=== PATIENT | female | born 1955 | race Caucasian/White ===

== ENCOUNTER → 2017-11-14 13:24 | Outpatient (CLI) | payer OTHER, SELFPAY ==
--- NOTE | 2017-11-14 13:33 | US_ITS ---
STUDY: ULTRASOUND OF THE FEMALE PELVIS - COMPLETE REASON FOR EXAM: Female, 62 years old. Pelvic pain for 2 days. TECHNIQUE: Transabdominal. TECHNICAL QUALITY: Adequate. COMPARISON: None. FINDINGS: The uterus and ovaries are absent compatible with hysterectomy and bilateral oophorectomy. No free fluid in the pelvis. Bladder volume measures 2.61 mL. Bladder is grossly normal.. US/Pelvic (Non ) IMPRESSION: Normal appearance of the pelvis status post hysterectomy with bilateral oophorectomy. Electronically Signed: Fito Perez MD at 7:54 EST , Service support ,
== END ==
PROVIDERS: Family Provider Family Medicine; PCP Family Medicine; Visit Provider Family Medicine
DX: R10.9 Unspecified abdominal pain (principal)
CPT/HCPCS: 76856

== ENCOUNTER → 2017-12-03 15:18 | Outpatient (CLI) | payer OTHER, SELFPAY ==
--- NOTE | 2017-12-03 15:25 | HPBI_ITS ---
MAMMOGRAPHY - BILATERAL SCREENING REASON FOR EXAM: Female, 62 years old. Routine annual screening examination. PERTINENT HISTORY: Non-contributory. TECHNIQUE: Digital bilateral breast sotero (3D mammographic acquisition) in the CC and MLO projections. 2-D mediolateral oblique (MLO) and craniocaudad (CC) views of both breasts were obtained. CAD: Full Field Digital Mammography with Computer Added Detection was performed. COMPARISON: Comparison is made with prior study dated November 06, 2016 and October 13, 2015. FINDINGS: Breast Composition: There are scattered areas of fibroglandular density. There are no dominant masses or suspicious calcifications. No other significant abnormalities are identified. There has been no significant change since the prior study. HPBI/SCREENING MAMM (CAD), BILAT IMPRESSION: Stable bilateral screening mammogram. Yearly follow-up mammogram recommended. (A) ASSESSMENT CATEGORY: BIRADS Category 1: Negative. A letter regarding these results will be sent to the patient by the facility within 30 days. Approximately 10% of breast cancers are not detected by mammography. A normal mammogram should not delay biopsy of a clinically suspicious abnormality. [id number] Electronically Signed: Bertin Beckford MD at 8:14 EST Tel [phone], Service support ,
== END ==
LOC: BI 15:19
PROVIDERS: Family Provider Family Medicine; PCP Family Medicine; Visit Provider Obstetrics & Gynecology
DX: Z12.31 Encounter for screening mammogram for malignant neoplasm of breast (principal)
CPT/HCPCS: 77063; 77067

== ENCOUNTER → 2018-06-19 09:40 | Outpatient (CLI) | payer MEDICARE, SELFPAY ==
--- NOTE | 2018-06-19 09:44 | CT_ITS ---
STUDY: CT ABDOMEN AND PELVIS WITHOUT CONTRAST REASON FOR EXAM: Female, 63 years old. Assess for an umbilical hernia. RADIATION DOSAGE (If Supplied By Facility): CTDIvol = ( 6.48 ) mGy, DLP = ( 318.71 ) mGycm TECHNIQUE: Transaxial images were obtained from the dome of the diaphragm to the symphysis pubis without oral contrast, and without intravenous contrast. Sagittal and coronal images were reconstructed. Individualized dose optimization techniques were used for this CT. COMPARISON: April 13, 2017 FINDINGS: The visualized lung bases are unremarkable. The visualized portions of the heart are within normal limits. Normal liver. There are surgical clips in the gallbladder fossa consistent with a prior cholecystectomy. Normal spleen. Normal pancreas. There is stable prominence of the left adrenal gland. Normal right kidney. Normal left kidney. Normal visualized stomach. Normal small intestine. There are diverticula throughout the colon present most pronounced within the sigmoid colon. The appendix is visualized and appears normal. Normal abdominal aorta. Normal inferior vena cava. Normal retroperitoneum. Normal urinary bladder. There is a umbilical hernia measuring up to 3 cm in the transverse dimension containing a segment of small bowel. There are diffuse degenerative changes of the visualized lumbar spine. CT/Abdomen/Pelvis without Cont IMPRESSION: Umbilical hernia. Colonic diverticulosis. Degenerative changes. Electronically Signed: Ksenia Nixon MD at 16:56 EDT Tel , Service support ,
== END ==
LOC: CT 09:43
PROVIDERS: Family Provider Family Medicine; PCP Family Medicine; Visit Provider Surgery
DX: K46.9 Unspecified abdominal hernia without obstruction or gangrene (principal)
CPT/HCPCS: 74176

== ENCOUNTER 2018-09-17 11:19 | Day surgery (SDC) | payer MEDICARE, SELFPAY ==
[2018-08-20 12:44] VITALS: BMI 27.1
[2018-09-17] VITALS (10 sets, daily range): BP systolic 115–147; BP diastolic 49–96; PULSE 62–79; RESP 16–18; TEMP 36.3–37.2; O2SAT 92–100; BMI 26.9
--- NOTE | 2018-09-17 11:40 | EKG12_ITS ---
Test Reason : PRE OP Blood Pressure : / mmHG Vent. Rate : 066 BPM Atrial Rate : 066 BPM P-R Int : 126 ms QRS Dur : 080 ms QT Int : 402 ms P-R-T Axes : 003 013 002 degrees QTc Int : 421 ms Sinus rhythm with Premature atrial complexes Otherwise normal ECG When compared with ECG of 13-APR-2017 13:10, Premature atrial complexes are now Present Confirmed by MONTY NAJERA, JORGE ([id number]), editorial writer LAKIA OLIVARES ([id number]) on 09/18/2018 11:27:43 AM Referred By: Sarina Marmolejo Confirmed By:JORGE MILLAN MD
[2018-09-17 12:29] LABS: BUN 20 mg/dL (7-18); Creatinine, Serum 1.05 mg/dL (0.55-1.02); Estimated Creatinine Clearance 42.25 ml/min; Glucose 88 mg/dL (74-106)
[2018-09-17 12:30] LABS: Anion Gap 7 (5-15); Chloride 108 mmol/L (98-107); EST Glomerular Filtration Rate 56 mL/min (>60); Est Glom Filt Rate - Afr Amer 68 mL/min (>60); Potassium 4.1 mmol/L (3.5-5.1); Sodium Level 144 mmol/L (136-145); Thyroid Stim Hormone (TSH) 3.11 uIU/mL (0.358-3.74)
--- NOTE | 2018-09-17 13:00 | HERN_PTH ---
PATIENT: MATT ZAZUETA [place] [facility] [place][id number] AGE/SX: 63/F ROOM: RE09/17/[address]: Dr. Sarina Marmolejo MD : [id number] BED: DIS: 09/17/2018 SPEC #: [id number] RECD: 09/17/18 15:51 STATUS: KELLEN REJuan #: [id number] SHANICE: 09/17/18 13:[address]: Sarina Marmolejo DEPT: SURGICAL PATHOLOGY RECD BY: Armando Flood ENTERED: 09/18/18 10:28 SP TYPE: Hernia OTHR DR: Dr. Gary Howard, DO Tissues: HERNIA Procedures: Surgery Specimen Level II HEADER OPERATION: Open incisional ventral hernia repair with mesh PRE-OP DIAGNOSIS: Ventral incisional hernia without obstruction TISSUE SUBMITTED: Hernia sac MICROSCOPIC DIAGNOSIS Hernia sac: Pieces of dense fibroconnective tissue and fibroadipose tissue, consistent with hernia sac with reactive changes. SJ:cedric 09/21/18 MICROSCOPIC DESCRIPTION Slides are reviewed. GROSS DESCRIPTION Received in fixative is one container labeled with the patient's name and designated hernia sac. The specimen consists of multiple pieces of anthony soft to indurated tissue mixed with adipose tissue that in aggregate measure 5 x 4.5 x 2 cm. No mass lesion is identified. Charger Tester sections are submitted in one cassette. / ERIC:cedric 09/18/18 TC:5 CPT: 72446
--- NOTE | 2018-09-17 15:02 | PCM.OPRPT ---
Report of Operation Date of Procedure: 09/17/18 Pre-Operative Diagnosis: Incisional ventral hernia Post-Operative Diagnosis: Incarcerated incisional ventral hernia Surgery/Procedure Performed:: Incarcerated incisional ventral hernia repair with mesh rail grinder: Shane Courtney Type of Anesthesia:: General/Supplemental Anesthesiologist: Td Stringer Special Medications: Clindamycin 600 mg IV x1 Specimen's removed: Hernia sac Estimated Blood Loss (mL): <10 cc Fluids Replaced: 900 cc Description of Procedure: Patient was brought into the room placed supine on the operating table. Correct patient, procedure, site, positioning, special, was verified prior to procedure. General anesthesia was induced. The abdomen was prepped draped in usual sterile fashion. A curvilinear incision was made below the umbilicus with a 15 blade scalpel. This was deepened with electrocautery. A hemostat was used to go around the stalk of the umbilicus and Metzenbaum scissors was used to carefully divide the hernia sac from the skin of the umbilicus. The hernia sac had tight adhesions to the abdominal wall which were carefully taken down with Metzenbaum scissors. The fascia around the hernia defect was cleared and the hernia defect measured 2 cm x 2-1/[address] hernia patch medium 6.4 cm tulalip was placed assuring it was laying flat against the fascia. 1-0 Nurolon was used to secure the fascia circumferentially 1-0 Nurolon suture was used to secure the mesh to the fascia circumferentially. The wound was irrigated with saline. Hemostasis was assured. The skin of the umbilicus was secured to the fascia using a 3-0 Vicryl suture interrupted. The incision was closed with 3-0 Vicryl subdermal interrupted sutures and the skin was closed with interrupted 4-0 Monocryl sutures. Steri-Strips and Tegaderm and OpSite were placed over the incision once sterile cotton balls were placed in the umbilicus. Patient was extubated. Patient tolerated procedure well and was taken to the postanesthesia care unit in stable condition. Grafts/Implants Used: Ventralex ST hernia patch, medium tulalip lot [id number] - Complications none
[2018-09-17] MEDS: Bupivacaine Mpf 0.5% 30 ML VIAL (15:03)
--- NOTE | 2018-09-17 15:07 | OP.PCM_ITS ---
Report of Operation Date of Procedure: 09/17/18 Pre-Operative Diagnosis: Incisional ventral hernia Post-Operative Diagnosis: Incarcerated incisional ventral hernia Surgery/Procedure Performed:: Incarcerated incisional ventral hernia repair with mesh quality assurance monitor: Shane Courtney Type of Anesthesia:: General/Supplemental Anesthesiologist: Td Stringer Special Medications: Clindamycin 600 mg IV x1 Specimen's removed: Hernia sac Estimated Blood Loss (mL): <10 cc Fluids Replaced: 900 cc Description of Procedure: Patient was brought into the room placed supine on the operating table. Correct patient, procedure, site, positioning, special, was verified prior to procedure. General anesthesia was induced. The abdomen was prepped draped in usual sterile fashion. A curvilinear incision was made below the umbilicus with a 15 blade scalpel. This was deepened with electrocautery. A hemostat was used to go around the stalk of the umbilicus and Metzenbaum scissors was used to carefully divide the hernia sac from the skin of the umbilicus. The hernia sac had tight adhesions to the abdominal wall which were carefully taken down with Metzenbaum scissors. The fascia around the hernia defect was cleared and the hernia defect measured 2 cm x 2-1/[address] hernia patch medium 6.4 cm kaltag was placed assuring it was laying flat against the fascia. 1-0 Nurolon was used to secure the fascia circumferentially 1-0 Nurolon suture was used to secure the mesh to the fascia circumferentially. The wound was irrigated with saline. Hemostasis was assured. The skin of the umbilicus was secured to the fascia using a 3-0 Vicryl suture interrupted. The incision was closed with 3-0 Vicryl subdermal interrupted sutures and the skin was closed with interrupted 4-0 Monocryl sutures. Steri-Strips and Tegaderm and OpSite were placed over the incision once sterile cotton balls were placed in the umbilicus. Patient was extubated. Patient tolerated procedure well and was taken to the postanesthesia care unit in stable condition. Grafts/Implants Used: Ventralex ST hernia patch, medium kaltag lot [id number] - Complications none
--- NOTE | 2018-09-17 15:09 | PCM.DC.GS ---
Discharge Diet: Light diet - advance as tolerated Discharge Activity: May not drive while taking narcotic pain medications. May shower in (days): 5 - Keep umbilical dressing clean dry and intact for 5 days Lifting Restrictions: No lifting greater than 20 pounds for 4 weeks and no strenuous exercise for Call your doctor if your incision/area has: Continuous Slow Oozing, Sudden Increased Bleeding, Increased Pain/ Swelling, Increased Redness, Foul Smelling Discharge, Swelling at the incision site Call your doctor if you observe: Fever of 101 or Higher Additional Instructions: okay to take ibuprofen 400-600 mg PO q6hr PRN along with the Vicodin. Avoid Tylenol since there is already Tylenol in the Vicodin. Take all pain meds with food. Vicodin can cause constipation recommend taking daily stool softener (i.e. Colace/docusate) while taking the pain meds. Recommend starting some MiraLAX tomorrow if no bowel movement. If still no bowel movement the following day recommend taking magnesium citrate half the bottle and waiting 4-6 hours if still no results take the other half the bottle. keep dressing on the umbilicus for 5 days. Keep clean and dry by covering with Ziploc bag with the edges tape for showers for 5 days or do lower showers with sponge baths. It is okay to remove dressing after 5 days but would continue to put either a cotton ball or rolled up gauze in the umbilicus with tape over the top to keep the skin of the mellitus against the fascia for 2 more days--change daily. Allergies/Adverse Reactions: Allergies sulfamethoxazole [From Bactrim] Allergy (Mild, Verified 09/15/18 11:20) rash trimethoprim [From Bactrim] Allergy (Mild, Verified 09/15/18 11:20) rash amoxicillin Allergy (Verified 09/15/18 11:20) Rash Medications to take at Discharge Estradiol 0.5 mg PO DAILY 04/13/17 Lisinopril/Hydrochlorothiazide [Zestoretic 20-25 mg Tablet] 1 tab PO DAILY 04/13/17 Multivitamin [Multiple Vitamins] 1 ea PO DAILY 04/13/17 Niacin (Inositol Niacinate) [Niacin 500 mg Capsule] 500 mg PO QHS 04/13/17 Simvastatin [Zocor] 10 mg PO DAILY 04/13/17 fenofibrate nanocrystallized 145 mg tablet 145 mg PO DAILY 06/15/18 levothyroxine 25 mcg capsule 25 mcg PO DAILY 06/15/18 Cholecalciferol (VIT D3) [Vitamin D] 400 unit PO DAILY 09/15/18 Hydrocodone Bitart/Apap 5-325 [Edison 5MG-325MG] 1 - 2 tablet PO Q4H PRN PRN 4 Days #25 tablet 09/17/18 Orders to be completed after discharge: 12 Lead EKG [[facility]] Time Frame: 09/17/18, Location: None Selected Primary Care Physician: Gary Howard [Primary Care Provider] - Test Results: Test results from this visit will be discussed in further detail at your follow-up appointment, if applicable. Please Follow Up With: Sarina Marmolejo MD - Any issues after 5 PM or on the weekends call [phone] When: Call for follow-up appointment in 1-2 weeks in the office Proposed Discharge Date: 09/17/18
--- NOTE | 2018-09-17 15:14 | DCINST_ITS ---
Discharge Diet: Light diet - advance as tolerated Discharge Activity: May not drive while taking narcotic pain medications. May shower in (days): 5 - Keep umbilical dressing clean dry and intact for 5 days Lifting Restrictions: No lifting greater than 20 pounds for 4 weeks and no strenuous exercise for Call your doctor if your incision/area has: Continuous Slow Oozing, Sudden Increased Bleeding, Increased Pain/ Swelling, Increased Redness, Foul Smelling Discharge, Swelling at the incision site Call your doctor if you observe: Fever of 101 or Higher Additional Instructions: okay to take ibuprofen 400-600 mg PO q6hr PRN along with the Vicodin. Avoid Tylenol since there is already Tylenol in the Vicodin. Take all pain meds with food. Vicodin can cause constipation recommend taking daily stool softener (i.e. Colace/docusate) while taking the pain meds. Recommend starting some MiraLAX tomorrow if no bowel movement. If still no bowel movement the following day recommend taking magnesium citrate half the bottle and waiting 4-6 hours if still no results take the other half the bottle. keep dressing on the umbilicus for 5 days. Keep clean and dry by covering with Ziploc bag with the edges tape for showers for 5 days or do lower showers with sponge baths. It is okay to remove dressing after 5 days but would continue to put either a cotton ball or rolled up gauze in the umbilicus with ta pe over the top to keep the skin of the mellitus against the fascia for 2 more days--change daily. Allergies/Adverse Reactions: Allergies sulfamethoxazole [From Bactrim] Allergy (Mild, Verified 09/15/18 11:20) rash trimethoprim [From Bactrim] Allergy (Mild, Verified 09/15/18 11:20) rash amoxicillin Allergy (Verified 09/15/18 11:20) Rash Medications to take at Discharge Estradiol 0.5 mg PO DAILY 04/13/17 Lisinopril/Hydrochlorothiazide [Zestoretic 20-25 mg Tablet] 1 tab PO DAILY 04/13/17 Multivitamin [Multiple Vitamins] 1 ea PO DAILY 04/13/17 Niacin (Inositol Niacinate) [Niacin 500 mg Capsule] 500 mg PO QHS 04/13/17 Simvastatin [Zocor] 10 mg PO DAILY 04/13/17 fenofibrate nanocrystallized 145 mg tablet 145 mg PO DAILY 06/15/18 levothyroxine 25 mcg capsule 25 mcg PO DAILY 06/15/18 Cholecalciferol (VIT D3) [Vitamin D] 400 unit PO DAILY 09/15/18 Hydrocodone Bitart/Apap 5-325 [[place] 5MG-325MG] 1 - 2 tablet PO Q4H PRN PRN 4 Days #25 tablet 09/17/18 Orders to be completed after discharge: 12 Lead EKG [[facility]] Time Frame: 09/17/18, Location: None Selected Primary Care Physician: Gary Howard [Primary Care Provider] - Test Results: Test results from this visit will be discussed in further detail at your follow- up appointment, if applicable. Please Follow Up With: Sarina Marmolejo MD - Any issues after 5 PM or on the weekends call [phone] When: Call for follow-up appointment in 1-2 weeks in the office Proposed Discharge Date: 09/17/18
--- OUTSIDE RECORDS SUMMARY | 2018-11-03 06:46 | XMS RPT_ITS ---
:1955 Author Organization OH[employer] Support Name Relationship Address Phone MOUNA ZAZUETA Unavailable . + [place] [address] [employer] Unavailable [address] + [facility] [place] [address] ZAZUETA, MOUNA Unavailable Unavailable + [place] [address] [employer] Unavailable [address] + [place] [address] ZAZUETA, MOUNA Unavailable Unavailable + [place] [address] [employer] Unavailable [address] + [place] [address] ZAZUETA, MOUNA Unavailable Unavailable + [place] [address] [employer] Unavailable [address] + [place] [address] ZAZUETA, MOUNA Unavailable Unavailable + ZAZUETA, MOUNA Unavailable [address] + [place] [address] UE Unavailable Unavailable Unavailable ZAZUETA, MOUNA Unavailable [address] + [place] [address] UE Unavailable Unavailable Unavailable ZAZUETA, MOUNA Unavailable [address] + [place] [address] UE Unavailable Unavailable Unavailable ZAZUETA, MOUNA Unavailable [address] + [place] [address] UE Unavailable Unavailable Unavailable ZAZUETA, MOUNA Unavailable [address] + [place] [address] UE Unavailable Unavailable Unavailable Care Team Providers Name Role Phone ALLYSSA LOPEZ, DR. ALVARENGA Attending Unavailable Robotham, Sarina Attending Unavailable Robotham, Sarina Referring Unavailable Fracasso, Gary Primary Care Unavailable Robotham, Sarina Consulting Unavailable Jacqueline, Republic Attending Unavailable Robotham, Sarina Referring Unavailable Robotham, Sarina Attending Unavailable Fracasso, Gary Referring Unavailable RUZICS, RUPALI Attending Unavailable Fracasso, Gary Primary Care Unavailable Gunning, Alfonso Attending Unavailable Gunning, Alfonso Referring Unavailable Fracasso, Gary Primary Care Unavailable Robotham, Sarina Attending Unavailable Fracasso, Gary Referring Unavailable Fracasso, Gary Primary Care Unavailable Robotham, Sarina Attending Unavailable Robotham, Sarina Referring Unavailable Fracasso, Gary Primary Care Unavailable Robotham, Sarina Attending Unavailable Fracasso, Gary Referring Unavailable Robotham, Sarina Attending Unavailable Robotham, Sarina Referring Unavailable Fracasso, Gary Primary Care Unavailable PROBLEMS PROBLEMS DATE TYPE CONDITION / CODE ATTENDING STATUS SOURCE 09/21/2018 Unknown K42.9 - Umbilical Robotham, Active [place] hernia without Sarina [facility] obstruction or Hospital gangrene / Repository K42.9(ICD-10) 09/30/2018 Unknown I10 - Essential Jacqueline, Republic Active [facility] (primary) Community hypertension / Hospital I10(ICD-10) Repository 09/17/2018 Unknown G89.18 - Other acute Robotham, Active [place] postprocedural pain Sarina [facility] / G89.18(ICD-10) Hospital Repository 06/19/2018 Unknown K46.9 - Unspecified Robotham, Active [place] abdominal hernia Sarina [facility] without obstruction Hospital or gangrene / Repository K46.9(ICD-10) 06/19/2018 Unknown K43.9 - Ventral Robotham, Active [place] hernia without Sarina Community obstruction or Hospital gangrene / Repository K43.9(ICD-10) PROCEDURES PROCEDURES No Procedure Records FoundRESULTS RESULTS SURGERY VISIT REPORT Observed: 10/02/2018 Status: F Source: RAVENEL 12:34 PM [facility] REPOSITORY [facility] [address] [place] [address]. [address] [place] [address] OFFICE VISIT Date of Service: 10/01/18 MR#: [id number] Acct: [id number] Name: MATT ZAZUETA Rep #: [id number] : 1955 Provider: Sarina Marmolejo MD Age/Sex: 63/F Location: [facility] Status: Signed Intake Intake Visit Reasons: Hernia Surgery 09/17 Chief Complaint: post ventral hernia repair [employer] Supervisor Required: No Is patient in pain?: No Allergies sulfamethoxazole [From Bactrim] Allergy (Mild, Verified 10/01/18 10:37) rash trimethoprim [From Bactrim] Allergy (Mild, Verified 10/01/18 10:37) rash amoxicillin Allergy (Verified 10/01/18 10:37) Rash Medications Estradiol 0.5 mg PO DAILY 04/13/17 [History Confirmed 09/15/18] Lisinopril/Hydrochlorothiazide [Zestoretic 20-25 mg Tablet] 1 tab PO DAILY 04/13/17 [History Confirmed 09/15/18] Multivitamin [Multiple Vitamins] 1 ea PO DAILY 04/13/17 [History Confirmed 09/15/18] Niacin (Inositol Niacinate) [Niacin 500 mg Capsule] 500 mg PO QHS 04/13/17 [History Confirmed 09/15/18] Simvastatin [Zocor] 10 mg PO DAILY 04/13/17 [History Confirmed 09/15/18] fenofibrate nanocrystallized 145 mg tablet 145 mg PO DAILY 06/15/18 [History Confirmed 09/15/18] levothyroxine 25 mcg capsule 25 mcg PO DAILY 06/15/18 [History Confirmed 09/15/18] Cholecalciferol (VIT D3) [Vitamin D] 400 unit PO DAILY 09/15/18 [History Confirmed 09/15/18] Is last menstrual period known: No Post menopausal: Yes Patient : No Subjective Details: Patient is status post open incisional ventral hernia repair with mesh on 09/17/18. Patient states she is doing well tolerating a diet and having bowel function. Patient states that her pain was well controlled after the surgery with pain meds and currently she is not taking any pain meds. Objective Details: Abdomen: Soft, nondistended, minimal tenderness near incision, resolving ecchymosis, no peritoneal signs Assessment AND Plan Problems 1. S/P repair of ventral hernia Z98.890; Z87.19 Plan Patient is doing well. Tolerating diet, positive bowel function, incision healing well. Patient will follow-up in 3-4 weeks. She will let us know if she needs any work excuses. Currently she is not to be lifting greater than 20 pounds for 4 weeks we will gradually increase until 8 weeks. Patient no further questions at this time. Sarina Marmolejo M.D. Pager: [phone] [facility] [address] [place] [address] [address] [place] [address] Office: [phone] Plan Detail Follow Up 3-4 weeks Coding Level of Care Code Global Post Op Diagnoses S/P repair of ventral hernia Z98.890; Z87.19 10/02/18 1234 <Electronically signed by Sarina Marmolejo MD> Date Sarina Marmolejo MD Cosigner Signature: Date (if applicable) CC: Gary Howard OPERATIVE REPORT Observed: 09/21/2018 Status: F Source: RAVENEL 8:48 PM [facility] REPOSITORY [facility] Medical Records Department [address] [place] [address] Operative Report 09/17/18 1502 MR#: [id number] Acct: [id number] Name: MATT ZAZUETA Rep #: [id number] : 1955 63 From: Sarina Marmolejo MD PCP: Gary Howard Status: [facility] [place] [facility] [place] of Operation Date of Procedure: 09/17/18 Pre-Operative Diagnosis: Incisional ventral hernia Post-Operative Diagnosis: Incarcerated incisional ventral hernia Surgery/Procedure Performed:: Incarcerated incisional ventral hernia repair with mesh shot man: Shane Courtney Type of Anesthesia:: General/Supplemental Anesthesiologist: Td Stringer Special Medications: Clindamycin 600 mg IV x1 Specimen's removed: Hernia sac Estimated Blood Loss (mL): <10 cc Fluids Replaced: 900 cc Description of Procedure: Patient was brought into the room placed supine on the operating table. Correct patient, procedure, site, positioning, special, was verified prior to procedure. General anesthesia was induced. The abdomen was prepped draped in usual sterile fashion. A curvilinear incision was made below the umbilicus with a 15 blade scalpel. This was deepened with electrocautery. A hemostat was used to go around the stalk of the umbilicus and Metzenbaum scissors was used to carefully divide the hernia sac from the skin of the umbilicus. The hernia sac had tight adhesions to the abdominal wall which were carefully taken down with Metzenbaum scissors. The fascia around the hernia defect was cleared and the hernia defect measured 2 cm x 2-1/[address] hernia patch medium 6.4 cm prairie island was placed assuring it was laying flat against the fascia. 1-0 Nurolon was used to secure the fascia circumferentially 1-0 Nurolon suture was used to secure the mesh to the fascia circumferentially. The wound was irrigated with saline. Hemostasis was assured. The skin of the umbilicus was secured to the fascia using a 3-0 Vicryl suture interrupted. The incision was closed with 3-0 Vicryl subdermal interrupted sutures and the skin was closed with interrupted 4-0 Monocryl sutures. Steri-Strips and Tegaderm and OpSite were placed over the incision once sterile cotton balls were placed in the umbilicus. Patient was extubated. Patient tolerated procedure well and was taken to the postanesthesia care unit in stable condition. Grafts/Implants Used: Ventralex ST hernia patch, medium prairie island lot [id number] - Complications none 09/21/182047 <Electronically signed by Sarian Marmolejo MD> Date Sarina Marmolejo MD CC: Gary Howard; Sarina Marmolejo MD Signed 12 LEAD ELECTROCARDIOGRAM Observed: 09/18/2018 Status: F Source: RAVENEL 11:28 AM [facility] REPOSITORY [facility] Cardiovascular Services [address] [place] [address] 12 Lead EKG 09/17/18 1140 MR#: [id number] Acct: [id number] Name: MATT ZAZUETA Rep #: [id number] : 1955 63 From: Francisco Phillips MD Attending Dr: Sarina Marmolejo MD Status: DEP [facility] [place] Dr: Sarina Marmolejo MD Date: 09/17/18 [place] [facility] Sex: F C Admitted: Test Reason : PRE OP Blood Pressure : / mmHG Vent. Rate : 066 BPM Atrial Rate : 066 BPM P-R Int : 126 ms QRS Dur : 080 ms QT Int : 402 ms P-R-T Axes : 003 013 002 degrees QTc Int : 421 ms Sinus rhythm with Premature atrial complexes Otherwise normal ECG When compared with ECG of 13-APR-2017 13:10, Premature atrial complexes are now Present Confirmed by FRANCISCO PHILLIPS MD ([id number]), desk editor LAKIA OLIVARES ([id number]) on 09/18/2018 11:27:43 AM Referred By: Sarina Marmolejo Confirmed By:FRANCISCO PHILLIPS MD 09/18/18 1127 Date Francisco Phillips MD CC: Gary Howard; Sarina Marmolejo MD Signed DISCHARGE INSTRUCTION Observed: 09/17/2018 Status: F Source: RAVENEL 3:18 PM [facility] REPOSITORY [facility] Medical Records Department [address] [place] [address] Instructions for Home/Discharge Instructions 09/17/18 1509 MR#: [id number] Acct: [id number] Name: MATT ZAZUETA Rep #: [id number] : 1955 63 From: Sarina Marmolejo MD PCP: Gary Howard Status: REG SDC Discharge Diet: Light diet - advance as tolerated Discharge Activity: May not drive while taking narcotic pain medications. May shower in (days): 5 - Keep umbilical dressing clean dry and intact for 5 days Lifting Restrictions: No lifting greater than 20 pounds for 4 weeks and no strenuous exercise for Call your doctor if your incision/area has: Continuous Slow Oozing, Sudden Increased Bleeding, Increased Pain/ Swelling, Increased Redness, Foul Smelling Discharge, Swelling at the incision site Call your doctor if you observe: Fever of 101 or Higher Additional Instructions: okay to take ibuprofen 400-600 mg PO q6hr PRN along with the Vicodin. Avoid Tylenol since there is already Tylenol in the Vicodin. Take all pain meds with food. Vicodin can cause constipation recommend taking daily stool softener (i.e. Colace/docusate) while taking the pain meds. Recommend starting some MiraLAX tomorrow if no bowel movement. If still no bowel movement the following day recommend taking magnesium citrate half the bottle and waiting 4-6 hours if still no results take the other half the bottle. keep dressing on the umbilicus for 5 days. Keep clean and dry by covering with Ziploc bag with the edges tape for showers for 5 days or do lower showers with sponge baths. It is okay to remove dressing after 5 days but would continue to put either a cotton ball or rolled up gauze in the umbilicus with tape over the top to keep the skin of the mellitus against the fascia for 2 more days--change daily. Allergies/Adverse Reactions: Allergies sulfamethoxazole [From Bactrim] Allergy (Mild, Verified 09/15/18 11:20) rash trimethoprim [From Bactrim] Allergy (Mild, Verified 09/15/18 11:20) rash amoxicillin Allergy (Verified 09/15/18 11:20) Rash Medications to take at Discharge Estradiol 0.5 mg PO DAILY 04/13/17 Lisinopril/Hydrochlorothiazide [Zestoretic 20-25 mg Tablet] 1 tab PO DAILY 04/13/17 Multivitamin [Multiple Vitamins] 1 ea PO DAILY 04/13/17 Niacin (Inositol Niacinate) [Niacin 500 mg Capsule] 500 mg PO QHS 04/13/17 Simvastatin [Zocor] 10 mg PO DAILY 04/13/17 fenofibrate nanocrystallized 145 mg tablet 145 mg PO DAILY 06/15/18 levothyroxine 25 mcg capsule 25 mcg PO DAILY 06/15/18 Cholecalciferol (VIT D3) [Vitamin D] 400 unit PO DAILY 09/15/18 Hydrocodone Bitart/Apap 5-325 [Hedrick 5MG-325MG] 1 - 2 tablet PO Q4H PRN PRN 4 Days #25 tablet 09/17/18 Orders to be completed after discharge: 12 Lead EKG [[facility]] Time Frame: 09/17/18, Location: None Selected Primary Care Physician: Gary Howard [Primary Care Provider] - Test Results: Test results from this visit will be discussed in further detail at your follow-up appointment, if applicable. Please Follow Up With: Sarina Marmolejo MD - Any issues after 5 PM or on the weekends call [phone] When: Call for follow-up appointment in 1-2 weeks in the office Proposed Discharge Date: 09/17/18 09/17/18 1518 <Electronically signed by Sarina Marmolejo MD> Date Sarina Marmolejo MD CC: Gary Howard HERNIA Observed: 09/17/2018 Status: F Source: RAVENEL 1:00 PM [facility] REPOSITORY Patient: MATT ZAZUETA : 1955 (63/F) Acct Num: [id number] Phys: Sarina Marmolejo MD Unit Num: [id number] [place] [facility] Specimen: [id number] Received: 09/17/181550 Spec Type: Hernia TISSUES 1 TISSUES: HERNIA GROSS DESCRIPTION Received in fixative is one container labeled with the patient's name and designated hernia sac. The specimen consists of multiple pieces of anthony soft to indurated tissue mixed with adipose tissue that in aggregate measure 5 x 4.5 x 2 cm. No mass lesion is identified. Cook Candy sections are submitted in one cassette. / ERIC:cedric 09/18/18 TC:5 CPT: 79260 HEADER OPERATION: Open incisional ventral hernia repair with mesh PRE-OP DIAGNOSIS: Ventral incisional hernia without obstruction TISSUE SUBMITTED: Hernia sac MICROSCOPIC DESCRIPTION Slides are reviewed. MICROSCOPIC DIAGNOSIS Hernia sac: Pieces of dense fibroconnective tissue and fibroadipose tissue, consistent with hernia sac with reactive changes. ERIC:cedric 09/21/18 Signed Maurilio Obrien MD 09/21/18 <signature on file> Performed By: #### PHERN #### [facility] [address] [place], [place], [id number] BASIC METABOLIC Collected: 09/17/2018 Status: F Source: RAFAEL PROFILE (BMP) 11:33 AM [facility] REPOSITORY Order Comment: Reason for Laboratory Test PREOP TYPE CODE TESTS RESULT OUT OF RANGE REFERENCE UNITS LAB L501.0100 74-106 mg/dL Normal GLU 88 Result Comment: Please note revised GLUCOSE reference range effective 2017. LAB L501.1000 7-18 mg/dL High BUN 20 LAB L501.1100 0.55-1.02 mg/dL High CREAT,SERUM 1.05 Result Comment: The validity of the calculated GFR AND GFRAA in patients over 70 years has not been determined. Clinical correlation is essential. LAB L501.1110 >60 mL/min Low EST GFR 56 Result Comment: Non- GFR Calc LAB L501.1115 >60 mL/min Normal EST GFR - AA 68 Result Comment: GFR Calc LAB L501.1255 ml/min Normal Estimated CRCL 42.25 LAB L501.1300 10-20 RATIO Normal BUN/CRE 19.0 LAB L501.2200 8.5-10 mg/dL Normal .1 CA 9.0 LAB L501.5300 136-14 mmol/L Normal 5 NA 144 LAB L501.5600 3.5-5. mmol/L Normal 1 K 4.1 LAB L501.5900 98-107 mmol/L High CL 108 LAB L501.6100 21.0-3 mmol/L Normal 2.0 CO2 29.0 LAB L501.6200 5-15 Normal GAP 7 Performed By: #### L500.2500, L501.9520 #### [facility] [address] [place], [place], [address] THYROID STIM HORMONE Collected: 09/17/2018 Status: F Source: RAFAEL (TSH) 11:33 AM [facility] REPOSITORY Order Comment: Reason for Laboratory Test PREOP TYPE CODE TESTS RESULT OUT OF RANGE REFERENCE UNITS LAB L501.9520 0.358-3.74 uIU/mL Normal TSH 3.11 Performed By: #### L500.2500, L501.9520 #### [facility] [address] [place], [address] SURGERY VISIT REPORT Observed: 08/20/2018 Status: F Source: RAFAEL 1:48 PM [facility] REPOSITORY [facility] [address] [place] [address] OFFICE VISIT Date of Service: 08/20/18 MR#: [id number] Acct: [id number] Name: MATT ZAZUETA Rep #: [id number] : 1955 Provider: Sarina Marmolejo MD Age/Sex: 63/F Location: [facility] Status: Signed Intake Vital Signs08/20/18 Height 5 ft 2 in 08/20/18 Weight: 148 lb 5 oz 08/20/18 Body Mass Index (BMI) 27.1 08/20/18 Blood Pressure 107/74 Intake Visit Reasons: Update H AND P Recur Umbil Hernia wants to sched sx Chief Complaint: update H AND P and schedule ventral hernia [employer] Supervisor Required: No Is patient in pain?: No Allergies sulfamethoxazole [From Bactrim] Allergy (Mild, Verified 08/20/18 12:45) rash trimethoprim [From Bactrim] Allergy (Mild, Verified 08/20/18 12:45) rash amoxicillin Allergy (Verified 08/20/18 12:45) Rash Medications Estradiol 0.5 mg PO DAILY 04/13/17 [History Confirmed 08/20/18] Lisinopril/Hydrochlorothiazide [Zestoretic 20-25 mg Tablet] 1 tab PO DAILY 04/13/17 [History Confirmed 08/20/18] Multivitamin [Multiple Vitamins] 1 ea PO DAILY 04/13/17 [History Confirmed 08/20/18] Niacin (Inositol Niacinate) [Niacin 500 mg Capsule] 500 mg PO QHS 04/13/17 [History Confirmed 08/20/18] Simvastatin [Zocor] 10 mg PO DAILY 04/13/17 [History Confirmed 08/20/18] Vitamin D 1 tab PO DAILY 04/13/17 [History Confirmed 08/20/18] fenofibrate nanocrystallized 145 mg tablet 145 mg PO DAILY 06/15/18 [History Confirmed 08/20/18] levothyroxine 25 mcg capsule 25 mcg PO DAILY 06/15/18 [History Confirmed 08/20/18] Is last menstrual period known: No Post menopausal: Yes Patient : No PFSH Medical History Hypothyroidism (Acute) History of colon polyps (Acute) HTN (hypertension) (Chronic) Hypercholesterolemia (Acute) Umbilical hernia (Acute) Surgical History History of total hysterectomy (Acute) History of colonoscopy (Acute) History of cholecystectomy (Acute) Family History Father Cancer prostate Grandfather Colon cancer Social History Smoking Status: Never smoker alcohol intake: never HPI HPI HPI: MATT ZAZUETA, is a 63 F who presents to the office today for follow-up for her incisional hernia. Patient states that it just a little sore with lifting but she has been careful and the pain has improved from previously. She does have a colonoscopy scheduled with Dr. Ken on September 14. Denies any nausea or vomiting or abdominal distention. And is having bowel function. ROS General General: No weight change, appetite, fatigue, colon cancer, breast cancer or weakness HEENT HEENT: No difficulty swallowing, eye injury, eye surgery, swollen glands or hoarseness Endo Endocrine: No thyroid disease, diabetes mellitus, thyroid cancer, Hair loss, heat intolerance or cold intolerance Musc Musculoskeletal: Yes arthritis; no back problems, rheumatoid arthritis, gout or joint pain Cardio Cardiovascular: No murmur, pacemaker, heart disease, atrial fibrillation, high blood pressure, heart attack, heart stent, palpitations, shortness of breat with exertion or chest pain Resp Respiratory: No shortness of breath, No sleep apnea, No cough, No COPD, No asthma, No emphysema, No wheezing Gastro Gastrointestinal: Yes abdominal pain, No nausea or vomiting, No diarrhea, No constipation, No blood in stool, No acid reflux, No hemorrhoids, No ulcers, No gallbladder problem, No black,tarry stools Abimael Hematologic: No blood thinners, No blood disorders, No bleeding, No anemia, No blood clots Neuro Neurologic: No weakness Exam Const General: cooperative, comfortable, no acute distress Cardio Heart Sounds: no murmurs GI Inspection: non-distended Palpation: soft, no guarding, hernia (Incisional at the umbilicus, about 2 and half centimeters, reducible), tender (An incisional ventral) Assessment AND Plan Problems 1. Ventral incisional hernia without obstruction or gangrene K43.2 Plan Plan to do an open incisional ventral hernia repair with mesh. Reviewed the procedure with the patient including the risks, including but not limited to infection, bleeding, injury to the small bowel, and recurrence. All questions were answered. Also, discussed risk of strangulated bowel or the risk of injury to the bowel in which case I would not put mesh in at that time. Cautioned the patient that if she has N/V, ABD distention, increased umbilical pain or changes of the skin over the hernia she needs to go to the ER. Sarina Marmolejo M.D. Pager: [phone] [facility] [address] [place] [address] Office: [phone] Plan Detail Follow Up Will schedule open incisional ventral hernia repair with mesh Coding Level of Care Code Off vis,est,level 3 Diagnoses Ventral incisional hernia without obstruction or gangrene K43.2 08/20/18 1348 <Electronically signed by Sarina Marmolejo MD> Date Sarina Marmolejo MD Cosigner Signature: Date (if applicable) CC: Gary Howard SURGERY VISIT REPORT Observed: 06/21/2018 Status: F Source: RAFAEL 5:46 PM [facility] REPOSIT[facility] [address] [place] [address] OFFICE VISIT Date of Service: 06/15/18 MR#: [id number] Acct: [id number] Name: MATT ZAZUETA Rep #: [id number] : 1955 Provider: Sarina Marmolejo MD Age/Sex: 63/F Location[place] [facility] Status: Signed with Addenda ADDENDUM by Sarina Marmolejo MD on 06/21/18 at 1746 Addendum entered and electronically signed by Sarina Marmolejo MD 06/21/18 17:46: correction: there is a recurrent hernia at umbilicus, CT a/p also showed the additional VH just superior to the umb hernia, but no additional hernia more superior in midline where pt c/o pain. Intake Chief Complaint: ventral hernia Allergies sulfamethoxazole [From Bactrim] Allergy (Mild, Verified 06/15/18 09:40) rash trimethoprim [From Bactrim] Allergy (Mild, Verified 06/15/18 09:40) rash amoxicillin Allergy (Verified 04/13/17 12:52) Rash Medications Estradiol [Estradiol] 0.5 mg PO DAILY 04/13/17 [History Confirmed 06/15/18] Lisinopril/Hydrochlorothiazide [Zestoretic 20-25 mg Tablet] 1 tab PO DAILY 04/13/17 [History Confirmed 06/15/18] Multivitamin [Multiple Vitamins] 1 ea PO DAILY 04/13/17 [History Confirmed 06/15/18] Niacin (Inositol Niacinate) [Niacin 500 mg Capsule] 500 mg PO QHS 04/13/17 [History Confirmed 06/15/18] Simvastatin [Zocor] 10 mg PO DAILY 04/13/17 [History Confirmed 06/15/18] Vitamin D 1 tab PO DAILY 04/13/17 [History Confirmed 06/15/18] fenofibrate nanocrystallized 145 mg tablet 145 mg PO DAILY 06/15/18 [History Confirmed 06/15/18] levothyroxine 25 mcg capsule 25 mcg PO DAILY 06/15/18 [History Confirmed 06/15/18] Assessment AND Plan Problems 1. Ventral hernia K43.9 Plan - Sarina Marmolejo MD Discussed with the patient at the time the cholecystectomy she did have an umbilical hernia as well as a very small ventral hernia just superior to this. However at the time only be umbilical hernia was used as a trocar site and closed. This does not appear to be a recurrent hernia at that site. On exam I am unable to feel the smaller hernia. The area that she says is tender I am unable to feel a hernia at all and I am not even sure if that is superior to the smaller ventral hernia and may just be area of diastases. Would recommend CT abdomen pelvis to look closer at this ventral hernia to see if it has gotten larger and may be the source of her pain as her pain is consistent with hernia with pain with lifting and resolved with rest. Patient is agreeable plan. I did discuss with patient she does seem to get her colonoscopy prior to doing any surgery because I would possibly be placing mesh. She said she would talk with Dr. Ken about getting her colonoscopy. Sarina Marmolejo M.D. Pager: [phone] [facility] [address] [place] [address], [facility], [address] [place] [address] Office: [phone] Orders Orders: Medications Discontinued: hydrocodone-acetaminophen 5-325 mg Discon1 - 2 tabs PO Q4H PRN PRN Pain Rosykiara Raines tinguerrero Reason: Pt no longer taking Plan Detail Follow Up Will discuss CT abdomen pelvis once complete 06/21/18 287 <Electronically signed by Sarina Marmolejo MD> Date Sarina Marmolejo MD cc: Gary Howard; Trevor Ken * Signed Intake Vital Signs06/15/18 Height 5 ft 2 in 06/15/18 Weight: 149 lb 6 oz 06/15/18 Body Mass Index (BMI) 27.3 06/15/18 Blood Pressure 135/82 Intake Visit Reasons: Abdominal Wall Hernia Chief Complaint: ventral hernia [employer] Supervisor Required: No Is patient in pain?: No Allergies sulfamethoxazole [From Bactrim] Allergy (Mild, Verified 06/15/18 09:40) rash trimethoprim [From Bactrim] Allergy (Mild, Verified 06/15/18 09:40) rash amoxicillin Allergy (Verified 04/13/17 12:52) Rash Medications Estradiol [Estradiol] 0.5 mg PO DAILY 04/13/17 [History Confirmed 06/15/18] Lisinopril/Hydrochlorothiazide [Zestoretic 20-25 mg Tablet] 1 tab PO DAILY 04/13/17 [History Confirmed 06/15/18] Multivitamin [Multiple Vitamins] 1 ea PO DAILY 04/13/17 [History Confirmed 06/15/18] Niacin (Inositol Niacinate) [Niacin 500 mg Capsule] 500 mg PO QHS 04/13/17 [History Confirmed 06/15/18] Simvastatin [Zocor] 10 mg PO DAILY 04/13/17 [History Confirmed 06/15/18] Vitamin D 1 tab PO DAILY 04/13/17 [History Confirmed 06/15/18] fenofibrate nanocrystallized 145 mg tablet 145 mg PO DAILY 06/15/18 [History Confirmed 06/15/18] levothyroxine 25 mcg capsule 25 mcg PO DAILY 06/15/18 [History Confirmed 06/15/18] Is last menstrual period known: No Post menopausal: Yes Patient : No PFSH Medical History Hypothyroidism (Acute) History of colon polyps (Acute) HTN (hypertension) (Chronic) Hypercholesterolemia (Acute) Surgical History History of total hysterectomy (Acute) History of colonoscopy (Acute) History of cholecystectomy (Acute) Family History Father Cancer prostate Grandfather Colon cancer Social History Smoking Status: Never smoker alcohol intake: never HPI HPI HPI: MATT ZAZUETA, is a 63 F who presents to the office today for abdominal hernia. Patient underwent laparoscopic cholecystectomy and umbilical hernia repair in April 2017. Patient states that for the last 3 months she has been having pain above her umbilicus with lifting. She states it can be a 11 out of 10 if she lifts greater than 20 pounds however under 20 pounds is not usually an issue. She does work in laundry. She states that the cart, hits that area as well. She denies any nausea or vomiting states he has bowel movements daily denies any blood. She states that the pain improves with rest or laying down. Patient's last colonoscopy was in 2011 and there are polyps she is thinks she was due in 5 years. She did see Dr. Ken for this. ROS General General: No weight change, appetite, fatigue, colon cancer, breast cancer or weakness HEENT HEENT: No difficulty swallowing, eye injury, eye surgery, swollen glands or hoarseness Endo Endocrine: No thyroid disease, diabetes mellitus, thyroid cancer, Hair loss, heat intolerance or cold intolerance Musc Musculoskeletal: Yes arthritis; no back problems, rheumatoid arthritis, gout or joint pain Cardio Cardiovascular: No murmur, pacemaker, heart disease, atrial fibrillation, high blood pressure, heart attack, heart stent, palpitations, shortness of breat with exertion or chest pain Resp Respiratory: No shortness of breath, No sleep apnea, No cough, No COPD, No asthma, No emphysema, No wheezing Gastro Gastrointestinal: Yes abdominal pain, No nausea or vomiting, No diarrhea, No constipation, No blood in stool, No acid reflux, No hemorrhoids, No ulcers, No gallbladder problem, No black,tarry stools Abimael Hematologic: No blood thinners, No blood disorders, No bleeding, No anemia, No blood clots Neuro Neurologic: No weakness Exam Const General: cooperative, comfortable, no acute distress Resp Effort AND Inspection: normal respiratory effort Cardio Rate: regular rate Rhythm: regular rhythm Heart Sounds: no murmurs GI Inspection: non-distended, incision (Well-healed, no hernia appreciated at umbilical site) Palpation: soft, no hernias (No obvious hernia on exam possible diastases in the area of tenderness.), no guarding Other: Review of CT abdomen pelvis did show prior to the cholecystectomy patient had a 2 cm umbilical hernia however on further evaluation there was a tiny 2 mm hernia just above that site. On exam I am unable to feel that hernia. Assessment AND Plan Problems 1. Ventral hernia K43.9 Plan Discussed with the patient at the time the cholecystectomy she did have an umbilical hernia as well as a very small ventral hernia just superior to this. However at the time only be umbilical hernia was used as a trocar site and closed. This does not appear to be a recurrent hernia at that site. On exam I am unable to feel the smaller hernia. The area that she says is tender I am unable to feel a hernia at all and I am not even sure if that is superior to the smaller ventral hernia and may just be area of diastases. Would recommend CT abdomen pelvis to look closer at this ventral hernia to see if it has gotten larger and may be the source of her pain as her pain is consistent with hernia with pain with lifting and resolved with rest. Patient is agreeable plan. I did discuss with patient she does seem to get her colonoscopy prior to doing any surgery because I would possibly be placing mesh. She said she would talk with Dr. Ken about getting her colonoscopy. Sarina Marmolejo M.D. Pager: [phone] [facility] [address] [place] [address], [facility], [address] [place] [address] Office: [phone] Orders Orders: Medications Discontinued: hydrocodone-acetaminophen 5-325 mg Discon1 - 2 tabs PO Q4H PRN PRN Pain Rosy Maria Elena Raines tinued Reason: Pt no longer taking Plan Detail Follow Up Will discuss CT abdomen pelvis once complete Coding Level of Care Code Off vis,est,level 3 Diagnoses Ventral hernia K43.9 06/18/18 1313 <Electronically signed by Sarina Marmolejo MD> Date Sarina Marmolejo MD Cosigner Signature: Date (if applicable) CC: Gary Howard; Trevor Ken ABDOMEN/PELVIS WITHOUT Observed: 06/19/2018 Status: F Source: RAVENEL CONT 9:44 AM [facility] Imaging Services [address] [place] [address] Abdomen/Pelvis without Cont MR#: [id number] Acct: [id number] Name: MATT ZAZUETA Rep #: [id number] : 1955 F 63 From: Ksenia Nixon MD PCP: Gary Howard Status: REG CLI Study: Abdomen/Pelvis without Cont Date of Exam: 06/19/18 Exam# [id number] Ordering Dr: Sarina Marmolejo MD STUDY: CT ABDOMEN AND PELVIS WITHOUT CONTRAST REASON FOR EXAM: Female, 63 years old. Assess for an umbilical hernia. RADIATION DOSAGE (If Supplied By Facility): CTDIvol = ( 6.48 ) mGy, DLP = ( 318.71 ) mGycm TECHNIQUE: Transaxial images were obtained from the dome of the diaphragm to the symphysis pubis without oral contrast, and without intravenous contrast. Sagittal and coronal images were reconstructed. Individualized dose optimization techniques were used for this CT. COMPARISON: April 13, 2017 FINDINGS: The visualized lung bases are unremarkable. The visualized portions of the heart are within normal limits. Normal liver. There are surgical clips in the gallbladder fossa consistent with a prior cholecystectomy. Normal spleen. Normal pancreas. There is stable prominence of the left adrenal gland. Normal right kidney. Normal left kidney. Normal visualized stomach. Normal small intestine. There are diverticula throughout the colon present most pronounced within the sigmoid colon. The appendix is visualized and appears normal. Normal abdominal aorta. Normal inferior vena cava. Normal retroperitoneum. Normal urinary bladder. There is a umbilical hernia measuring up to 3 cm in the transverse dimension containing a segment of small bowel. There are diffuse degenerative changes of the visualized lumbar spine. CT/Abdomen/Pelvis without Cont IMPRESSION: Umbilical hernia. Colonic diverticulosis. Degenerative changes. Electronically Signed: Ksenia Nixon MD at 16:56 EDT Tel , Service support , CC: Gary Howard; Sarina Marmolejo MD Screen Printing Machine Operator Helper: Signed SCREENING MAMM (CAD), Observed: 12/03/2017 Status: F Source: RAFAEL BILAT 3:25 PM [facility] Imaging Services [address] [place] [address] SCREENING MAMM (CAD), BILAT MR#: [id number] Acct: [id number] Name: MATT ZAZUETA Rep #: [id number] : 1955 F 62 From: Bertin Beckford MD PCP: Gary Howard Status: REG CLI Study: SCREENING MAMM (CAD), BILAT Date of Exam: 12/03/17 Exam# [id number] Ordering Dr: Rupali Carmona MAMMOGRAPHY - BILATERAL SCREENING REASON FOR EXAM: Female, 62 years old. Routine annual screening examination. PERTINENT HISTORY: Non-contributory. TECHNIQUE: Digital bilateral breast sotero (3D mammographic acquisition) in the CC and MLO projections. 2-D mediolateral oblique (MLO) and craniocaudad (CC) views of both breasts were obtained. CAD: Full Field Digital Mammography with Computer Added Detection was performed. COMPARISON: Comparison is made with prior study dated November 06, 2016 and October 13, 2015. FINDINGS: Breast Composition: There are scattered areas of fibroglandular density. There are no dominant masses or suspicious calcifications. No other significant abnormalities are identified. There has been no significant change since the prior study. HPBI/SCREENING MAMM (CAD), BILAT IMPRESSION: Stable bilateral screening mammogram. Yearly follow-up mammogram recommended. (A) ASSESSMENT CATEGORY: BIRADS Category 1: Negative. A letter regarding these results will be sent to the patient by the facility within 30 days. Approximately 10% of breast cancers are not detected by mammography. A normal mammogram should not delay biopsy of a clinically suspicious abnormality. [id number] Electronically Signed: Bertin Beckford MD at 8:14 EST Tel [phone], Service support , CC: Gary CARMONA Screen Printing Machine Operator Helper: Signed PELVIC (NON ) Observed: 11/14/2017 Status: F Source: RAFAEL 1:33 PM [facility] Imaging Services [address] [place] [address] Pelvic (Non ) MR#: [id number] Acct: [id number] Name: MATT ZAZUETA Rep #: [id number] : 1955 F 62 From: Fito Perez PCP: Gary Howard Status: REG CLI Study: Pelvic (Non ) Date of Exam: 11/14/17 Exam# [id number] Ordering Dr: Alfonso Crain MD STUDY: ULTRASOUND OF THE FEMALE PELVIS - COMPLETE REASON FOR EXAM: Female, 62 years old. Pelvic pain for 2 days. TECHNIQUE: Transabdominal. TECHNICAL QUALITY: Adequate. COMPARISON: None. FINDINGS: The uterus and ovaries are absent compatible with hysterectomy and bilateral oophorectomy. No free fluid in the pelvis. Bladder volume measures 2.61 mL. Bladder is grossly normal.. US/Pelvic (Non ) IMPRESSION: Normal appearance of the pelvis status post hysterectomy with bilateral oophorectomy. Electronically Signed: Fito Perez MD at 7:54 EST , Service support , CC: Alfonso Crain MD; Gary Howard Screen Printing Machine Operator Helper: Signed ALLERGIES ALLERGIES DATE TYPE / CODE NAME / CODE REACTION SEVERITY SOURCE 10/01/2018 Drug sulfamethoxa Rash [facility] Allergy/4160 zole/[id number] Hospital [facility](SNOMED 827(RXNORM) Repository CT) 10/01/2018 Drug trimethoprim Rash [facility] Allergy/4160 /[id number]( Hospital 33219(SNOMED RXNORM) Repository CT) 10/01/2018 Drug amoxicillin/ Rash Unknown [facility] Allergy/4160 [id number]( Hospital [facility](SNOMED XNORM) Repository CT) ENCOUNTERS ENCOUNTERS ADMIT/DISCHARGE ACCOUNT NUMBER ADMITTING ENCOUNTER LOCATION SOURCE CLASS 10/01/2018/10/01/20 [id number] Ambulatory BMSBuilding: [place] 18 BMS.[facility] Repository 09/17/2018 [id number] Ambulatory BMSBuilding: [place] BMS.CF.[facility] Repository 09/17/2018 [id number] Ambulatory BMSBuilding: [place] [facility] Repository 09/17/2018/09/17/20 [id number] Ambulatory [place] ding:SDCRoom Repository : AC15 09/14/2018/09/14/20 [id number] Ambulatory BBuilding:[facility] [place] [facility] Repository 08/20/2018/08/20/20 [id number] Ambulatory BMSBuilding: [place] 18 BMS.[facility] Repository 06/19/2018 [id number] Ambulatory [facility] ding:CT Repository 06/15/2018/06/15/20 [id number] Ambulatory BMSBuilding: [place] 18 BMS.[facility] Repository 12/03/2017 [id number] Ambulatory [facility] ding:BI Repository 11/14/2017 [id number] Ambulatory [facility] ding: Repository PAYERS PAYERS ENCOUNTER GUARANTOR PAYER SUBSCRIBER SOURCE 10/01/2018 MATT K Primary MATT K [place] [id number] [place] Insurance:[place] P[place]: [facility] [id number] [address]Tel: (056) MEDICAREPolicy Repository [phone] () Number: [id number] Date: [place], [place] [address]QH: 10/01/2018 Secondary NOT GIVENUNK [place] Insurance:SELF PAY [facility] Number: Effective Repository Date:2018-10-01 09/17/2018 MATT K Primary MATT K [place] [id number] [place] Insurance:[place] PITTMANDOB: [facility] [id number] [place] [address]Tel: (352) [facility] [phone] () Number: [id number] Date: [place], [place] [address]MM: 09/17/2018 Secondary NOT GIVENUNK [place] Insurance:SELF PAY [facility] Number: Effective Repository Date:2018-09-17 09/17/2018 MATT K Primary MATT K [place] [id number] [place] Insurance:[place] [facility] [id number] Hospital [address]Zva: ([phone]) MEDICAREPolicy Repository [phone] () Number: [id number] Date: [place], [place] [address]HJ: 09/17/2018 Secondary NOT GIVENUNK [place] Insurance:SELF PAY [facility] Number: Effective Repository Date:2018-09-17 09/17/2018 MATT K Primary MATT K [place] [id number] [place] Insurance:HOMET[place] PITANDOB: [facility] [id number] Hospital [address]Amm: (330) MEDICAREPolicy Repository [phone] () Number: [id number] Date: [place], [place] [address]MF: 09/17/2018 Secondary NOT GIVENUNK [place] Insurance:SELF PAY [facility] Number: Effective Repository Date:2018-08-20 09/14/2018 MATT K Primary [facility]AN PITANDOB: [facility] INSCOPolicy Number: [id number] Repository [place] [id number] [place], [place] Date:2018-06-29 [place] [address] [id number]: (000) Name:CHRIS FORMAN [address] [id number] ([place], [place] [id number]: 08/20/2018 MATT K Primary MATT K [place] [id number] [place] Insurance:[place] PITTMANDOB: [facility] [id number] Hospital [address]Xbx: (330) MEDICAREPolicy Repository [phone] () Number: [id number] Date: [place], [place] [address]RG: 08/20/2018 Secondary NOT GIVENUNK [place] Insurance:SELF PAY [facility] Number: Effective Repository Date:2018-08-20 06/19/2018 MATT K Primary MATT K [place] [id number] [place] Insurance:[place] PITTMANDOB: [facility] CARE [id number] Hospital [address]Ltv: (330) MEDICAREPolicy Repository [phone] () Number: [id number] Date: [place], [place] [address]YS: 06/19/2018 Secondary NOT GIVENUNK [place] Insurance:SELF PAY [facility] Number: Effective Repository Date:2018-06-15 06/15/2018 MATT K Primary MATT K [place] [id number] [place] Insurance:HEALTH PLAN PITTMANDOB: [facility] [id number] Hospital [address]Tss: (330) Banneric Number: Repository [phone] () [id number] Date: [place], [place] [address]TX: 06/15/2018 Secondary NOT GIVENUNK [place] Insurance:SELF PAY [facility] Number: Effective Repository Date:2018-06-15 12/03/2017 MATT K Primary MATT K [place] [id number] [place] Insurance:CARES[place] PITTMANDOB: [facility] [id number] Hospital [address]But: (330) Number: Repository [phone] () [id number] Date:4200-29-55IT [address] [place] [id number]: 12/03/2017 Secondary NOT GIVENUNK [place] Insurance:SELF PAY [facility] Number: Effective Repository Date:2017-10-16 11/14/2017 MATT K Primary MATT K [place] [id number] [place] Insurance:CARESOELKE ARIASOB: [facility] [id number] Hospital [address]Cpi: (330) Number: Repository [phone] ) [id number] Date:[id number] [address] [place] [id number]: 11/14/2017 Secondary NOT GIVENUNK [place] Insurance:SELF PAY [facility] Number: Effective Repository Date:2017-11-11
== END 2018-09-17 18:36 | disposition home or self-care (01) ==
LOC: SDC 11:22 → AC 11:23
PROVIDERS: Anesthesiology; Family Provider Family Medicine; PCP Family Medicine; Referring Provider Surgery; Visit Provider Surgery
PROC: (CPT 49561; principal; 2018-09-17 12:45)
DX: K43.0 Incisional hernia with obstruction, without gangrene (principal); I10 Essential (primary) hypertension; E03.9 Hypothyroidism, unspecified; E78.00 Pure hypercholesterolemia, unspecified; Z78.0 Asymptomatic menopausal state; Z86.010 Personal history of colon polyps; Z87.19 Personal history of other diseases of the digestive system; Z79.899 Other long term (current) drug therapy
CPT/HCPCS: 49561; 49568; 36415; 80048; 84443; 88302; 93005; C1781; J7120; J2405

== ENCOUNTER → 2018-12-04 09:44 | Outpatient (CLI) | payer MEDICARE, SELFPAY ==
[2018-09-17 11:50] VITALS: BMI 26.9
--- NOTE | 2018-12-04 09:49 | BI_ITS ---
MAMMOGRAPHY - BILATERAL SCREENING REASON FOR EXAM: Female, 63 years old. Routine annual screening examination. PERTINENT HISTORY: Non-contributory. TECHNIQUE: Digital bilateral breast sotero (3D mammographic acquisition) in the CC and MLO projections. 2-D mediolateral oblique (MLO) and craniocaudad (CC) views of both breasts were obtained. CAD: Full Field Digital Mammography with Computer Added Detection was performed. COMPARISON: Comparison is made with prior study dated December 03, 2017 and November 06, 2016. FINDINGS: Breast Composition: There are scattered areas of fibroglandular density. There are no dominant masses or suspicious calcifications. Stable small bilateral axillary lymph nodes. No other significant abnormalities are identified. There has been no significant change since the prior study. BI/SCREENING MAMM (CAD), BILAT IMPRESSION: Stable bilateral screening mammogram. Yearly follow-up mammogram recommended. (A) ASSESSMENT CATEGORY: BIRADS Category 2: Benign. A letter regarding these results will be sent to the patient by the facility within 30 days. Approximately 10% of breast cancers are not detected by mammography. A normal mammogram should not delay biopsy of a clinically suspicious abnormality. [id number] Electronically Signed: Bertin Beckford, at 11:13 EST , Service support ,
== END ==
PROVIDERS: Family Provider Family Medicine; PCP Family Medicine; Visit Provider Obstetrics & Gynecology
DX: Z12.31 Encounter for screening mammogram for malignant neoplasm of breast (principal)
CPT/HCPCS: 77063; 77067

== ENCOUNTER → 2019-03-05 10:28 | Outpatient (CLI) | payer MEDICARE, SELFPAY ==
[2018-09-17 11:50] VITALS: BMI 26.9
--- NOTE | 2019-03-05 10:31 | RAD_ITS ---
STUDY: X-RAY CHEST REASON FOR EXAM: Female, 64 years old. Cough and shortness of breath. TECHNIQUE: PA and lateral views of the chest. COMPARISON: None. FINDINGS: There is evidence of bibasilar infiltrates with blunting of both costophrenic angles. Normal size heart. Normal mediastinum and jose. Normal visualized pulmonary arteries. There is atherosclerotic tortuosity of the aortic arch and descending thoracic aorta. There are diffuse degenerative changes of the visualized thoracic spine. Normal visualized ribs, clavicles, and shoulders. Surgical clips are seen in the epigastric region. RAD/Chest PA and Lateral IMPRESSION: Bibasilar infiltrates and blunting of both costophrenic angles. Electronically Signed: Bertin Beckford, at 15:34 EDT , Service support ,
== END ==
PROVIDERS: Family Provider Family Medicine; PCP Family Medicine; Referring Provider Family Medicine; Visit Provider Family Medicine
DX: R06.02 Shortness of breath (principal); R05 Cough
CPT/HCPCS: 71046

== ENCOUNTER → 2020-11-14 12:10 | Outpatient (CLI) | payer OTHER, SELFPAY ==
[2018-09-17 11:50] VITALS: BMI 26.9
--- NOTE | 2020-11-14 12:14 | BI_ITS ---
MAMMOGRAPHY - BILATERAL SCREENING REASON FOR EXAM: Female, 65 years old. Routine annual screening examination. PERTINENT HISTORY: Non-contributory. TECHNIQUE: Digital bilateral breast damon (3D mammographic acquisition) in the CC and MLO projections. 2-D mediolateral oblique (MLO) and craniocaudad (CC) views of both breasts were obtained. CAD: Full Field Digital Mammography with Computer Added Detection was performed. COMPARISON: Comparison is made with prior examination of 12/04/2018 and 12/03/2017. FINDINGS: Breast Composition: There are scattered areas of fibroglandular density. There are no dominant masses or suspicious calcifications. Stable small benign appearing bilateral axillary lymph nodes. No other significant abnormalities are identified. There has been no significant change since the prior study. BI/SCRN MAMM (CAD)W/DAMON BILAT IMPRESSION: Stable bilateral screening mammogram. Yearly follow-up mammogram recommended. (A) ASSESSMENT CATEGORY: BIRADS Category 2: Benign. A letter regarding these results will be sent to the patient by the facility within 30 days. Approximately 10% of breast cancers are not detected by mammography. A normal mammogram should not delay biopsy of a clinically suspicious abnormality. [id number] Electronically Signed: Bertin Beckford MD at 13:05 EST , Service support ,
== END ==
PROVIDERS: PCP Family Medicine; Referring Provider Obstetrics & Gynecology; Visit Provider Obstetrics & Gynecology
DX: Z12.31 Encounter for screening mammogram for malignant neoplasm of breast (principal)
CPT/HCPCS: 77063; 77067

== ENCOUNTER 2022-05-14 08:43 | Day surgery (SDC) | payer MEDICARE, SELFPAY ==
--- NOTE | 2022-05-09 09:30 | EKG12_ITS ---
Test Reason : PREOP Blood Pressure : / mmHG Vent. Rate : 066 BPM Atrial Rate : 066 BPM P-R Int : 122 ms QRS Dur : 080 ms QT Int : 384 ms P-R-T Axes : 009 021 011 degrees QTc Int : 402 ms Normal sinus rhythm Normal ECG Confirmed by MONTY NAJERA, JORGE ([id number]), editor managing newspaper OLINDA BARRETT ([id number]) on 05/09/2022 2:07:14 PM Referred By: Sarina Marmolejo Confirmed By:JORGE MILLAN MD
[2022-05-09 10:38] LABS: Hematocrit 43.8 % (37-47); Hemoglobin 14.1 g/dL (12.0-15.0); Mean Corp Hgb Conc 32.2 g/dL (32-36); Mean Corpuscular Hgb 28.9 pg (27.0-32.0); Mean Corpuscular Volume 89.8 fL (81-99); Mean Platelet Vol. 10.5 fl (6.2-12.0); Platelet Count 269 K/mm3 (150-450); RBC Distribution Width CV 17.2 % (11.6-14.6); RBC Distribution Width SD 56.5 fl (35.1-43.9); Red Blood Count 4.88 M/mm3 (4.2-5.4); White Blood Count 5.9 K/mm3 (4.4-11.0)
[2022-05-09 11:10] LABS: Anion Gap 3 (5-15); BUN 20 mg/dL (7-18); BUN/Creat Ratio 24.4 RATIO (10-20); Calcium,Total 8.7 mg/dL (8.5-10.1); Chloride 109 mmol/L (98-107); Creatinine, Serum 0.82 mg/dL (0.55-1.02); EST Glomerular Filtration Rate 74 mL/min (>60); Est Glom Filt Rate - Afr Amer 89 mL/min (>60); Glucose 89 mg/dL (74-106); Potassium 3.9 mmol/L (3.5-5.1); Sodium Level 142 mmol/L (136-145); Thyroid Stim Hormone (TSH) 1.53 uIU/mL (0.358-3.74)
[2022-05-14] VITALS (8 sets, daily range): BP systolic 102–114; BP diastolic 56–88; PULSE 69–88; RESP 16–18; TEMP 36.8–37.3; O2SAT 91–97; BMI 23.3
[2022-05-14] MEDS: Lactated Ringers 1,000 ML 15 ML IV ×2 (09:14→11:46)
--- NOTE | 2022-05-14 09:54 | HP.PCM_ITS ---
History and Physical Date of Admission: 05/14/22 Date of Service:? 05/02/22 MR#:[id number] Acct:[id number] Name:MATT EVANS :1955 ?Age/Sex:?67/F Provider:Dr. Sarina Marmolejo MD Location:[facility] Status:Signed Intake Vital Signs ? 05/02/2214:26 Height 5 ft 2 in Weight: 127 lb BMI 23.2 BP 133/83 H Blood Pressure Location Rt brachial Position Sitting Respiration 18 Intake Visit Reasons:?Hernia Chief Complaint: bilat inguinal hernia Leasing Assistant Required: No Is patient in pain?: Yes (right groin) Allergies sulfamethoxazole [From Bactrim] Allergy (Mild, Verified 05/02/22 14:27) rashtrimethoprim [From Bactrim] Allergy (Mild, Verified 05/02/22 14:27) rashamoxicillin Allergy (Verified 05/02/22 14:27) Rash Medications lisinopril 20 mg-hydrochlorothiazide 25 mg tablet 1 tab PO DAILY 04/13/17 [History Confirmed 05/02/22] multivitamin 1 ea PO DAILY 04/13/17 [History Confirmed 05/02/22] niacin (inositol niacinate) 500 mg capsule 500 mg PO QHS 04/13/17 [History Confirmed 05/02/22] simvastatin 10 mg tablet 10 mg PO DAILY 04/13/17 [History Confirmed 05/02/22] fenofibrate nanocrystallized 145 mg tablet (Tricor) 145 mg PO DAILY 06/15/18 [History Confirmed 05/02/22] levothyroxine 25 mcg capsule 25 mcg PO DAILY 06/15/18 [History Confirmed 05/02/22] cholecalciferol (vitamin D3) 25 mcg (1,000 unit) tablet (Vitamin D3) 400 unit PO DAILY 09/15/18 [History Confirmed 05/02/22] azathioprine 50 mg tablet tablet PO 05/02/22 [History Confirmed 05/02/22] hydroxychloroquine 200 mg tablet 200 mg PO 05/02/22 [History Confirmed 05/02/22] prednisone 10 mg tablet tablet PO 05/02/22 [History Confirmed 05/02/22] [facility] Medical History?(Updated 05/02/22 @ 20:[address] Sarina Marmolejo MD) History of colon polyps HTN (hypertension) Hypercholesterolemia Hypothyroidism Umbilical hernia Surgical History?(Updated 05/02/22 @ 14:26 by Soo Mann) History of cholecystectomy History of colonoscopy History of total hysterectomy History of ventral hernia repair (~09/2018) S/P cataract extraction Family History? Father Cancer ?? ? prostateGrandfather Colon cancer Social History? Smoking Status:? Never smoker alcohol intake:? never HPI HPI HPI: MATT ZAZUETA, is a 67 F who presents to the office today for bilateral inguinal hernias.? Patient previously had a ventral hernia repair with mesh denies any issues at that area.? Patient states more recently she has noticed bilateral groin bulges with pain.? Patient states it is worse on the right states she has burning she has never tried to self reduce but states they do go back in on their own occasionally.? Patient's previous old abdominal surgeries: Total hysterectomy, cholecystectomy laparoscopic, ventral hernia repair with mesh ROS General General: No weight change, appetite, fatigue, colon cancer, breast cancer or weakness HEENT HEENT: No difficulty swallowing, eye injury, eye surgery, swollen glands or hoarseness Endo Endocrine: Yes thyroid disease; No diabetes mellitus, thyroid cancer, Hair loss, heat intolerance or cold intolerance Skin Skin: No rash or changing moles Breast Breast: No left breast lump, right breast lump, nipple discharge, breast pain, abnormal mammogram, abnormal US or breast enlargement Musc Musculoskeletal: Yes arthritis; No back problems, rheumatoid arthritis, gout or joint pain Cardio Cardiovascular: Yes high blood pressure; No murmur, pacemaker, heart disease, atrial fibrillation, heart attack, heart stent, palpitations, shortness of breat with exertion or chest pain Psych Psychiatric: No depression, anxiety or hearing voices Resp Respiratory: No shortness of breath, No sleep apnea, No cough, No COPD, No asthma, No emphysema and No wheezing Gastro Gastrointestinal: No abdominal pain, No nausea or vomiting, No diarrhea, No constipation, No blood in stool, No acid reflux, No hemorrhoids, No ulcers, No gallbladder problem and No black,tarry stools Abimael Hematologic: No blood thinners, No blood disorders, No bleeding, No anemia and No blood clots Neuro Neurologic: No system reviewed and no additional complaints, except as document ed, No as per HPI, No abnormal gait, No abnormal hearing, No abnormal movements, No abnormal speech, No behavioral changes, No burning sensations, No confusion, No convulsions, No disequilibrium, No dizziness, No localized weakness, No frequent falls, No headache(s), No lack of coordination, No loss of vision, No memory loss, No numbness, No other visual disturbances, No radicular pain, No restless legs, No sensory deficit, No syncope, No tingling, No tremor(s), No weakness and No other Exam Const General: cooperative, healthy appearing and no acute distress HENMT Head: normal to inspection Resp Effort & Inspection: normal respiratory effort Cardio Rate: regular rate GI Inspection: non-distended Palpation: soft, no guarding and nontender Other: Umbilical incision well-healed no signs of ventral hernia on exam; bilateral inguinal hernias on exam-- likely direct noticeable bulge with standing, reducible. Skin General: no rashes or lesions noted Neuro General: patient oriented x3 Extrem General: no clubbing, cyanosis or edema Psych Affect: normal affect Assessment and Plan Assessment and Plan (1) Bilateral inguinal hernia without obstruction or gangrene: ?Status:?Acute Plan Plan to do bilateral open inguinal herniorrhaphy with mesh. Reviewed the proc edure with the patient including the risks, including but not limited to infection, bleeding, paresthesia, chronic pain, injury to small bowel, and recurrence. All questions were answered.? Did also review with patient laparoscopic inguinal hernia repair however patient has had multiple lower abdominal surgeries including be ventral hernia pair with mesh and total hysterectomy and so there may be a chance of more adhesions also there is always a risk of getting a hernia at the abdominal port sites.? Patient preferred the open approach. Sarina Marmolejo M.D. Pager: [phone] [facility] [address] [place] [address], [facility], [address] [place] [id number] Office: [phone] ? Coding Level of Care Code Off vis,new,level 3 Diagnoses Bilateral inguinal hernia without obstruction or gangrene? K40.20 05/03/22 1300 <Electronically signed by Sarina Marmolejo MD> Date [facility]
[2022-05-14] MEDS: Clindamycin 900 MG/50 ML BAG 75 MG IV (10:31)
[2022-05-14] MEDS: Bupivacaine 0.25% 30 ML Vial (10:43)
--- NOTE | 2022-05-14 12:31 | OP.PCM_ITS ---
Report of Operation Date of Procedure: 05/14/22 Pre-Operative Diagnosis: Bilateral inguinal hernias Post-Operative Diagnosis: Bilateral direct and indirect inguinal hernias Surgery/Procedure Performed:: Repair of bilateral inguinal hernias with mesh Surgeon: Sarina Marmolejo district wire chief: Amna Kemp Type of Anesthesia: General/Supplemental Anesthesiologist: Dylan Gómez Special Medications: Clindamycin 900 mg IV x1 Specimen's removed: None Estimated Blood Loss (mL): < 10 cc Description of Procedure: Indications: This is a 67-year-old female who developed bilateral inguinal hernia. Bilateral inguinal hernia repair with mesh was elected. Description procedure: The patient was taken to the operating room. A timeout was completed verifying correct patient, procedure, site, positioning, and special equipment prior to beginning procedure. General anesthesia was induced. The bilateral groin was prepped and draped in usual sterile fashion. An incision was marked in the natural skin crease and planned in the near the pubic tubercle. A field block was produced by raising skin wheals along the proposed incision in a skin wound was raised about 1 cm medial to the anterior superior iliac spine using 0.25% Marcaine for a total of 10 mL bilaterally. Bilateral procedure is done similarly. Skin incision was made with the knife and deepened through the Amy and Camper's fascia with electrocautery until the aponeurosis of the external oblique was a identified. This was cleaned and the external ring exposed. Hemostasis was achieved in the wound. An incision was made in the midpoint of the external oblique aponeurosis in the direction of its fibers. The ilioinguinal nerve was identified and protected throughout the dissection. Flaps of the external oblique were developed cephalad and inferiorly. The round ligament was identified. It was gently dissected free at the pubic tubercle and encircled with a Everett drain. The round ligament was suture- ligated with 3-0 silk sutures. Direct and indirect hernias are present with a grossly weakened floor. The floor was repaired 2-0 silk running suture. A Bard keyhole mesh was cut to the appropriate size after and suturing the whole with 2-0 Prolene. Beginning at the pubic tubercle, the mesh was sutured to the inguinal ligament inferiorly and the conjoined tendon superiorly using 2 continuous running sutures of 2-0 Prolene sutures. Care was taken to assure the mesh was placed in the last fashion to avoid excess tension and no neurovascular structures were caught in the repair. On the right side the ilioinguinal nerve was unable to be moved out of the way of the tails of the mesh thus it was ligated with 3-0 silk sutures. Hemostasis was again checked. Area was irrigated with saline. External oblique aponeurosis was closed running suture of 3-0 Vicryl, taking care not to catch the ilioinguinal nerve in the suture line. Amy's fascia was closed with interrupted sutures of 3-0 Vicryl. Skin was closed running subcuticular suture of 4-0 Monocryl with Steri-Strips gauze and Tegaderm. Patient tolerated the procedure well and sent to the postanesthesia care in stable condition. Grafts/Implants Used: Bard mesh appreciate lot [id number] x2 (left and right side) Complications none
--- NOTE | 2022-05-14 12:33 | DCINST_ITS ---
Discharge Instructions Diet Discharge Diet: Light diet - advance as tolerated Activity Discharge Activity: May Not Drive (while taking narcotic pain medications.) May shower in (days): 1 Lifting Restrictions: no lifting >20 lbs x 2 wks, no strenuous exercise for 4 wks Dressing / Incision Call your doctor if your incision/area has: Continuous Slow Oozing, Sudden Increased Bleeding, Increased Pain/ Swelling, Increased Redness, Foul Smelling Discharge and Swelling at the incision site Call your doctor if you observe: Fever of 101 or Higher Remove Dressing in: 2 days Cleanse incision/area with: Soap & Water Additional Dressing/Incision Instructions:: Steri-Strips will fall off in 7 to 10 days, if they do not fall off okay to remove after 10 days. Follow Up Care Please Follow Up With: Sarina Marmolejo MD When: Call the office for a follow-up appointment 2 weeks; after 5 PM and on the weekends call [phone] with any concerns. Test Results: Test results from this visit will be discussed in further detail at your follow- up appointment, if applicable. Discharge Plan Admission Attending Provider: Sarina Marmolejo Primary Care Provider: Gary Howard Discharge Orders/Prescriptions Prescriptions: New oxycodone-acetaminophen 5-325 mg tablet 1 tab PO Q6H PRN (Reason: pain) 3 Days Qty: 14 0RF Continued fenofibrate nanocrystallized [Tricor] 145 mg tablet 145 mg PO DAILY levothyroxine 25 mcg capsule 25 mcg capsule 25 mcg PO DAILY azathioprine 50 mg tablet 2 tablet PO DAILY prednisone 10 mg tablet 1 tablet PO DAILY multivitamin 1 EACH tablet 1 ea PO DAILY Label Comments: vitamin lisinopril-hydrochlorothiazide 20-25 mg tablet 1 tab PO DAILY Label Comments: TAKE 1 TABLET BY MOUTH ONCE DAILY Referrals / Follow Up: Gary Howard DO [Primary Care Provider] - Disposition Disposition (needs filled in before D/C Order can be placed): Home, Self Care
== END 2022-05-14 15:25 | disposition home or self-care (01) ==
LOC: SDC 08:44 → AC 08:45
PROVIDERS: Anesthesiology; PCP Family Medicine; Referring Provider Surgery; Visit Provider Surgery
PROC: (CPT 49505; principal; 2022-05-14 10:15)
DX: K40.20 Bilateral inguinal hernia, without obstruction or gangrene, not specified as recurrent (principal); I10 Essential (primary) hypertension; E03.9 Hypothyroidism, unspecified; E78.00 Pure hypercholesterolemia, unspecified; Z79.899 Other long term (current) drug therapy
CPT/HCPCS: 49505; 00830; 36415; 80048; 84443; 85027; 93005; J7120; C1781; J2405

== ENCOUNTER → 2024-08-31 | Outpatient (CLI) | payer MEDICARE, MEDICAID, SELFPAY ==
[2024-08-31] MEDS: Pentamidine Isethionate 300 MG, Water For Injection,Sterile 6 ML INHALATION (10:51)
== END | disposition home or self-care (01) ==
PROVIDERS: PCP Nurse Practitioner Family
DX: J84.9 Interstitial pulmonary disease, unspecified (principal); D84.9 Immunodeficiency, unspecified; Z29.89 Encounter for other specified prophylactic measures
CPT/HCPCS: 94642

== ENCOUNTER 2024-11-03 11:03 | Inpatient (IN) | payer MEDICARE, MEDICAID, SELFPAY ==
[2024-11-03] VITALS (32 sets, daily range): BP systolic 89–137; BP diastolic 58–96; PULSE 79–116; RESP 22–48; TEMP 36.1–37.7; O2SAT 92–99; BMI 20.9
--- NOTE | 2024-11-03 11:16 | EKG12_ITS ---
Test Reason : sob Blood Pressure : */* mmHG Vent. Rate : 99 BPM Atrial Rate : 99 BPM P-R Int : 116 ms QRS Dur : 64 ms QT Int : 342 ms P-R-T Axes : 29 88 27 degrees QTcB Int : 438 ms Normal sinus rhythm Low voltage QRS Borderline ECG Confirmed by SHEY NAJERA, FREDERIC ([id number]), editorial project manager ERIC GARDINER ([id number]) on 11/04/2024 1:23:22 PM Referred By: Confirmed By: FREDERIC KAT MD
--- NOTE | 2024-11-03 11:27 | ED.RN ---
PT BROUGHT IN BY EMS. 70% ON RA, EMS PLACED ON NON-REBREATHER. RESP AT THE BED-SIDE
[2024-11-03 11:30] LABS: Absolute Lymphocyte Count 0.49 X10^3/uL (0.83-4.51); Absolute Neutrophil Count 19.9 X10^3/uL (2.0-7.7); Basophil# 0.13 X10^3/uL; Basophil% 0.6 % (0-1); Eosinophil# 0.07 X10^3/uL; Eosinophils% 0.3 % (0-5); Hematocrit 42.8 % (37-47); Hemoglobin 13.2 g/dL (12.0-15.0); Lymphocyte # 0.49 X10^3/ul (0.83-4.51); Lymphocyte % 2.2 % (19-41); Mean Corp Hgb Conc 30.8 g/dL (32-36); Mean Corpuscular Hgb 31.1 pg (27.0-32.0); Mean Corpuscular Volume 100.7 fL (81-99); Mean Platelet Vol. 11.2 fl (6.2-12.0); Monocyte# 1.29 X10^3/uL; Monocyte% 5.8 % (0-10); NRBC Flagged by Analyzer 0 % (0-5); Neutrophil # 19.91 X10^3/uL (2.7-7.7); Neutrophil % 89.8 % (47-70); POSITIVE DIFFERENTIAL YES; Platelet Count 356 K/mm3 (150-450); RBC Distribution Width CV 15.1 % (11.6-14.6); RBC Distribution Width SD 55.3 fl (35.1-43.9); Red Blood Count 4.25 M/mm3 (4.2-5.4); White Blood Count 22.2 K/mm3 (4.4-11.0)
[2024-11-03 11:47] LABS: ALB/GLOB Ratio 1.1 RATIO (0.9-2.4); AST(SGOT) 71 U/L (15-37); Alanine Aminotransfer ALT/SGPT 38 U/L (13-56); Albumin, Serum 3.6 g/dL (3.2-5.0); Alkaline Phosphatase 51 U/L (45-117); Anion Gap 12 (5-15); BUN 33 mg/dL (7-18); BUN/Creat Ratio 32.4 RATIO (10-20); Calcium,Total 9.3 mg/dL (8.5-10.1); Chloride 107 mmol/L (98-107); Creatinine, Serum 1.02 mg/dL (0.55-1.02); EST Glomerular Filtration Rate 57 mL/min (>60); Est Glom Filt Rate - Afr Amer 69 mL/min (>60); Estimated Creatinine Clearance 38.17 ml/min; Globulin 3.2 g/dL (2.2-4.2); Glucose 97 mg/dL (74-106); Potassium 3.7 mmol/L (3.5-5.1); Protein, Total 6.8 g/dL (6.4-8.2); Sodium Level 141 mmol/L (136-145)
[2024-11-03 11:47] LABS: Allen Test Positive; Base Excess -2 mmol/L (-2 to +2); Bicarbonate 23.3 mmol/L (22-26); Blood Gas Specimen Type ART; Mode Not entered; O2 Delivery Device NRB; PO2 208 mmHG (75-100); SITE R Radial; SO2 100 % (95-99); Total Carbon Dioxide 25 mmol/L; pCO2 39.1 mmHg (35-45); pH 7.38 (7.35-7.45)
[2024-11-03 11:57] LABS: Lactic Acid 5.5 mmol/L (0.4-1.9)
--- NOTE | 2024-11-03 12:09 | RAD_ITS ---
PROCEDURE: CHEST 1 VIEW (PORTABLE) REASON FOR EXAM: Respiratory failure. Respiratory distress. TECHNIQUE: Single frontal image including the chest and abdomen. COMPARISON: None provided.. RAD/Chest 1 View (Portable) IMPRESSION: Probable small right pleural effusion. No pneumothorax is noted. In addition to likely underlying chronic lung changes, prominent areas of airsp pilo disease of the right upper and lower lung zones are seen, concerning for the presence of pneumonitis and/or atypical pulm onary edema. The cardiomediastinal silhouette is within the normal range for age and techniq ue. Right upper quadrant abdominal surgical clips are seen. [id number] degenerative changes of the visualized thoracolumbar spine not ed.. Reading Location: [id number]
--- NOTE | 2024-11-03 12:37 | EDS_ITS ---
HPI History of Present Illness Chief Complaint: Shortness of Breath [facility] Medical History (Updated 11/03/24 @ 12:[address] Kieran Espinosa MD) Post-menopausal History of steroid therapy Thyroid disease Rheumatoid arthritis Arthritis High cholesterol Interstitial lung disease Shortness of breath on exertion Umbilical hernia Hypothyroidism History of colon polyps HTN (hypertension) Hypercholesterolemia Home Medications ?Medication ?Instructions ?Recorded ?Last Taken ?Type multivitamin 1 ea PO DAILY 04/13/17 04/13/17 History fenofibrate nanocrystallized 145 145 mg PO DAILY 06/15/18 Unknown History mg tablet (Tricor) levothyroxine 25 mcg capsule 25 mcg PO DAILY 06/15/18 05/14/22 History lisinopril 20 1 tab PO DAILY 05/07/22 Unknown History mg-hydrochlorothiazide 25 mg tablet dapsone 100 mg tablet 100 mg PO DAILY 11/03/24 Unknown History Allergy/AdvReac Type Severity Reaction Status Date / Time sulfamethoxazole (From Allergy Mild rash Verified 11/03/24 11:11 Bactrim) trimethoprim (From Bactrim) Allergy Mild rash Verified 11/03/24 11:11 amoxicillin Allergy Rash Verified 11/03/24 11:11 Family History Father Cancer prostate Grandfather Colon cancer Surgical History S/P bilateral inguinal hernia repair S/P cataract extraction History of ventral hernia repair (~09/2018) History of total hysterectomy History of colonoscopy History of cholecystectomy Social History Smoking Status: Never smoker alcohol intake: never EXAM Physical Exam Const Vital Signs: 11/03/24 11:04 11/03/24 11:08 11/03/24 11:26 Temperature 98.0 F 98.0 F Temperature Source Oral Oral Pulse Rate 116 H 109 H Respiratory Rate 30 H 34 H Respiratory Effort Labored Nasal Flaring Respiratory Pattern Tachypnea Blood Pressure 137/90 H 137/90 H Blood Pressure Mean 105 105 Pulse Ox 92 98 Oxygen Delivery Method Non-Rebreather Non-Rebreather Non-Rebreather Oxygen Flow Rate (L/min) 11 11 Fraction of Inspired Oxygen (FIO2) 11/03/24 11:33 11/03/24 11:51 11/03/24 12:03 Temperature Temperature Source Pulse Rate 96 98 101 H Respiratory Rate 24 H 38 H 22 H Respiratory Effort Respiratory Pattern Tachypnea Blood Pressure 112/96 H 89/65 L Blood Pressure Mean 101 73 Pulse Ox 97 97 95 Oxygen Delivery Method Non-Rebreather Bi-pap Oxygen Flow Rate (L/min) Fraction of Inspired Oxygen (FIO2) 70 11/03/24 12:55 Temperature 99.9 F H Temperature Source Oral Pulse Rate 98 Respiratory Rate 24 H Respiratory Effort Respiratory Pattern Blood Pressure 93/63 Blood Pressure Mean 73 Pulse Ox 96 Oxygen Delivery Method Bi-pap Oxygen Flow Rate (L/min) Fraction of Inspired Oxygen (FIO2) Sepsis Attestation Sepsis Alert: Yes Sepsis Attestation: Agree w/Sepsis Date exam was performed: 11/03/24 Time exam was performed: 12:54 Possible Source of Sepsis: Pulmonary Sepsis Organ Dysfunction Criteria Present: SBP < 90 mmHg or MAP < 65 mmHg, SBP decrease of more than 40 mmHg and Acute Respiratory Failure (New need for BiPAP/CPAP or MV) Fluid Resuscitation Fluid resuscitation indicated?: Yes Fluid Resuscitation ordered: 30 ml/kg fluid bolus ordered Amount of fluid ordered: 1,500 MDM MDM MDM Narrative Medical decision making narrative: Differential diagnosis is exacerbation of interstitial lung disease due to viral infection versus pneumonia. Bronchodilators would be of no value. Sepsis workup was undertaken. Since patient has a lactate of 5.5 we will obtain blood cultures if not previously ordered. She will be treated for commune acquired pneumonia with Rocephin and azithromycin since her allergy to amoxicillin is only rash. Will contact hospitalist for admission. Lab Data Attestation: I reviewed the patient's lab results. Lab results narrative: White count is elevated 22.2 thousand with shift. H&H is unremarkable. Comprehensive metabolic panel is remarkable and elevated BUN to creatinine ratio of 32:1. Estimated creatinine clearance is 57. Lactate is elevated, 5.5. This could be due to the fact that she was hypoxic initially prior to presentation. This also may be due to sepsis since she does have infiltrate. She has allergy to amoxicillin and sulfa. Her reaction is rash. Labs: Laboratory Results - last 24 hr 11/03/24 11:10 WBC 22.2 H RBC 4.25 Hgb 13.2 Hct 42.8 MCV 100.7 H MCH 31.1 MCHC 30.8 L RDW Std Deviation 55.3 H RDW Coeff of Ulysses 15.1 H Plt Count 356 MPV 11.2 Immature Gran % (Auto) 1.300 H Neut % (Auto) 89.8 H Lymph % (Auto) 2.2 L [place] % (Auto) 5.8 Eos % (Auto) 0.3 Baso % (Auto) 0.6 Absolute Neuts (auto) 19.9 H Absolute Lymphs (auto) 0.49 L Nucleated RBC % 0 Sodium 141 Potassium 3.7 Chloride 107 Carbon Dioxide 22.0 Anion Gap 12 BUN 33 H Creatinine 1.02 Estim Creat Clear Calc 38.17 Est GFR (MDRD) Af Amer 69 Est GFR (MDRD) Non-Af 57 L BUN/Creatinine Ratio 32.4 H Glucose 97 Lactic Acid 5.5 H* Calcium 9.3 Total Bilirubin 1.70 H AST 71 H ALT 38 Alkaline Phosphatase 51 Total Protein 6.8 Albumin 3.6 Globulin 3.2 Albumin/Globulin Ratio 1.1 ABG Data ABG results: ABG 11/03/24 11:43 Specimen Type ART Sample Site R Radial pH 7.38 Bicarbonate Actual 23.3 Total CO2 25 Base Excess -2 O2 Saturation 100 H O2 % 15.0 ABG pCO2 39.1 ABG pO2 208 H Raphael Test Positive O2 Delivery Device NRB Vent Mode Not entered Radiography Chest X-Ray - ED: 1 View and Read by ED Physician (Cardiac size is normal. Cardiac silhouette is somewhat obscured because of chronic lung disease. Patient does have evidence in my opinion right upper lobe infiltrate. There is a small right pleural effusion noted. There is no evidence of cephalization. There is no evidence of pneumothorax. Oss) Diagnostic Testing: Clinical Impression(s) from Imaging Studies Chest X-Ray 11/03/24 12:09 IMPRESSION: Probable small right pleural effusion. No pneumothorax is noted. In addition to likely underlying chronic lung changes, prominent areas of airspace disease of the right upper and lower lung zones are seen, concerning for the presence of pneumonitis and/or atypical pulmonary edema. The cardiomediastinal silhouette is within the normal range for age and technique. Right upper quadrant abdominal surgical clips are seen. [id number] degenerative changes of the visualized thoracolumbar spine noted.. Reading Location: [address] EKG Initial EKG: Attestation: I personally reviewed and interpreted this EKG as follows: Interpretation: Sinus Rhythm (Rate is 99. Patient has low voltage. LA interval is 116 ms. Cures duration 64 ms. QT duration 342 ms. [place] is normal.) Management Discussion w/another healthcare provider: Hospitalist (Hospitalist was paged. Dr. Servando Vyas informing that Dr. Reis will be the admitting physician. Patient will need to go to the ICU. Dr. Reis quested dose of Solu-Medrol. This was ordered. Patient be admitted to the ICU.) Treatment and Re-Evaluation :: Patient has sepsis. She has a drop in her blood pressure to 91. She will receive a 30 cc/kg bolus. She will receive Rocephin and azithromycin. Patient has a living will. Discussed CODE STATUS. No one is spoken to her regarding ventilator/life support etc. Critical Care Time Critical Care Time: Yes Critical care time (excluding procedures): 30-74 minutes (37), Including time spent: (History, physical, documentation, independent rotation of laboratory results imaging and treatment for sepsis.), Discussing w/Consultants and Arranging Admission or Transfer Discharge Plan Dx/Rx/DC Orders Clinical Impression: Sepsis, Hypercholesterolemia, HTN (hypertension), Acute hypoxemic respiratory failure, Right upper lobe pneumonia, Acidosis, lactic, Interstitial lung disease, Acute prerenal azotemia, DNR (do not resuscitate) discussion Disposition Disposition: [facility]
--- NOTE | 2024-11-03 13:08 | HP.PCM.HOS_ITS ---
HPI - General General Date of Admission: 11/03/24 Date of Service: 11/03/24 Chief Complaint: Worsening shortness of breath and cough HPI Narrative MATT ZAZUETA, is a 69 F who presented to [facility] ED on 11/03/2024 with worsening shortness of breath and cough. Patient has history of interstitial lung disease, follows with [facility] pulmonology. She is on 2 L nasal cannula at night as needed. She lives at home alone, reports good functional status at baseline. She reported worsening dry cough and shortness of breath over the past few days. Was using her home inhalers with minimal improvement. She was placed on nonrebreather by EMS on the ride over. On arrival to the ED she was satting in the low to mid 90s on nonrebreather with respiration rate around 30. She was tachycardic to the low 110s and had a low-grade fever. Blood pressure was borderline low. Labs were notable for WBC count 22, lactate 5.5, T. bili 1.70. Initial ABG showed pH 7.38, pCO2 39, pO2 208. CTA chest showed no PE, interstitial fibrosis with findings of atypical infection and mild bilateral pleural effusions. Patient was given a DuoNeb breathing treatment with moderate improvement and was then placed on high flow nasal cannula. Hospitalist was then contacted for admission. I saw the patient at bedside in the ED. Patient was mildly fatigued appearing but otherwise sitting up comfortably in bed, breathing comfortably on high flow nasal cannula and answering questions appropriately. She stated she felt moderately improved after the breathing treatment. Continued to have a dry cough, no sputum production. Denied any fevers or chills. Denied any lightheadedness or dizziness. No other acute concerns at this time. [facility] Medical History (Updated 11/03/24 @ 12:[address] Kieran Espinosa MD) Post-menopausal History of steroid therapy Thyroid disease Rheumatoid arthritis Arthritis High cholesterol Interstitial lung disease Shortness of breath on exertion Umbilical hernia Hypothyroidism History of colon polyps HTN (hypertension) Hypercholesterolemia Home Medications ?Medication ?Instructions ?Recorded ?Last Taken ?Type multivitamin 1 ea PO DAILY 04/13/17 04/13/17 History fenofibrate nanocrystallized 145 145 mg PO DAILY 06/15/18 Unknown History mg tablet (Tricor) levothyroxine 25 mcg capsule 25 mcg PO DAILY 06/15/18 05/14/22 History lisinopril 20 1 tab PO DAILY 05/07/22 Unknown History mg-hydrochlorothiazide 25 mg tablet dapsone 100 mg tablet 100 mg PO DAILY 11/03/24 Unknown History Allergy/AdvReac Type Severity Reaction Status Date / Time sulfamethoxazole (From Allergy Mild rash Verified 11/03/24 11:11 Bactrim) trimethoprim (From Bactrim) Allergy Mild rash Verified 11/03/24 11:11 amoxicillin Allergy Rash Verified 11/03/24 11:11 Family History Father Cancer prostate Grandfather Colon cancer Surgical History S/P bilateral inguinal hernia repair S/P cataract extraction History of ventral hernia repair (~09/2018) History of total hysterectomy History of colonoscopy History of cholecystectomy Social History Smoking Status: Never smoker alcohol intake: never ROS Constitutional Constitutional: Reports fatigue; Denies chills, fever(s) or weakness Eyes Eyes: Denies change in vision Cardiovascular Cardiovascular: Denies chest pain Respiratory/Chest Respiratory/Chest: Reports cough, dyspnea, shortness of breath at rest and shortness of breath with exertion; Denies productive cough or wheezing Gastrointestinal Gastrointestinal: Denies abdominal pain, constipation, diarrhea, nausea or vomiting Genitourinary Genitourinary: Denies dysuria Musculoskeletal Musculoskeletal: Denies arthralgias or myalgias Neurologic Neurologic: Denies dizziness or headache(s) Vital Signs Vital Signs Vital Signs: 11/03/24 11:04 11/03/24 11:08 11/03/24 11:26 Temperature 98.0 F 98.0 F Temperature Source Oral Oral Pulse Rate 116 H 109 H Respiratory Rate 30 H 34 H Respiratory Effort Labored Nasal Flaring Respiratory Pattern Tachypnea Blood Pressure 137/90 H 137/90 H Blood Pressure Mean 105 105 Pulse Ox 92 98 Oxygen Delivery Method Non-Rebreather Non-Rebreather Non-Rebreather Oxygen Flow Rate (L/min) 11 11 Fraction of Inspired Oxygen (FIO2) 11/03/24 11:33 11/03/24 11:51 11/03/24 12:03 Temperature Temperature Source Pulse Rate 96 98 101 H Respiratory Rate 24 H 38 H 22 H Respiratory Effort Respiratory Pattern Tachypnea Blood Pressure 112/96 H 89/65 L Blood Pressure Mean 101 73 Pulse Ox 97 97 95 Oxygen Delivery Method Non-Rebreather Bi-pap Oxygen Flow Rate (L/min) Fraction of Inspired Oxygen (FIO2) 70 11/03/24 12:55 Temperature 99.9 F H Temperature Source Oral Pulse Rate 98 Respiratory Rate 24 H Respiratory Effort Respiratory Pattern Blood Pressure 93/63 Blood Pressure Mean 73 Pulse Ox 96 Oxygen Delivery Method Bi-pap Oxygen Flow Rate (L/min) Fraction of Inspired Oxygen (FIO2) Weight Weight: 50.3 kg Body Mass Index (BMI) 20.9 Physical Exam Const alert, oriented x3, no apparent distress and average body habitus Constitutional Narrative: Elderly female, mildly fatigued appearing, otherwise sitting up comfortably in bed, breathing comfortably on high flow nasal cannula, conversing normally and in no acute distress. General Appearance: cooperative and comfortable HEENT normocephalic, head/scalp atraumatic, hearing grossly normal bilaterally, nasal mucous membranes and turbinates normal and moist oral mucous membranes Eyes PERRL, EOMs intact bilaterally and conjunctivae normal Neck full ROM Chest inspection of chest normal Resp normal respiratory effort and no use of accessory muscles Resp Narrative: Breathing comfortably on high flow nasal cannula at rest. Mildly decreased breath sounds bilaterally in lung bases with crackles noted. No wheezing noted. Cardio regular rate, regular rhythm, no murmurs and peripheral pulses 2+ throughout GI normal to inspection, nondistended, normoactive bowel sounds, soft to palpation, non-tender and non-distended Back/Spine normal ROM Extremity normal to inspection, full ROM and no pedal edema Skin no rashes or lesions noted Neuro moves all extremities and no focal motor deficits Speech: speech normal Psych mental status grossly normal Results Lab / Micro Data 11/03/24 11:10 11/03/24 11:10 Labs: Laboratory Results - last 24 hr 11/03/24 11:10: WBC 22.2 H, RBC 4.25, Hgb 13.2, Hct 42.8, MCV 100.7 H, MCH 31.1, MCHC 30.8 L, RDW Std Deviation 55.3 H, RDW Coeff of Ulysses 15.1 H, Plt Count 356, MPV 11.2, Immature Gran % (Auto) 1.300 H, Neut % (Auto) 89.8 H, Lymph % (Auto) 2.2 L, Caroline % (Auto) 5.8, Eos % (Auto) 0.3, Baso % (Auto) 0.6, Absolute Neuts (auto) 19.9 H, Absolute Lymphs (auto) 0.49 L, Nucleated RBC % 0, Sodium 141, Potassium 3.7, Chloride 107, Carbon Dioxide 22.0, Anion Gap 12, BUN 33 H, Creatinine 1.02, Estim Creat Clear Calc 38.17, Est GFR (MDRD) Af Amer 69, Est GFR (MDRD) Non-Af 57 L, BUN/Creatinine Ratio 32.4 H, Glucose 97, Lactic Acid 5.5 H*, Calcium 9.3, Total Bilirubin 1.70 H, AST 71 H, ALT 38, Alkaline Phosphatase 51, Total Protein 6.8, Albumin 3.6, Globulin 3.2, Albumin/Globulin Ratio 1.1 Micro: Microbiology 11/03/24 11:33 Mucosa - Nose SARS-CoV-2, Influenza & RSV (PCR) - Final ABG Data ABG results: ABG 11/03/24 11:43 Specimen Type ART Sample Site R Radial pH 7.38 Bicarbonate Actual 23.3 Total CO2 25 Base Excess -2 O2 Saturation 100 H O2 % 15.0 ABG pCO2 39.1 ABG pO2 208 H Raphael Test Positive O2 Delivery Device NRB Vent Mode Not entered Imaging Radiology Impression Chest X-Ray 11/03/24 12:09 IMPRESSION: Probable small right pleural effusion. No pneumothorax is noted. In addition to likely underlying chronic lung changes, prominent areas of airspace disease of the right upper and lower lung zones are seen, concerning for the presence of pneumonitis and/or atypical pulmonary edema. The cardiomediastinal silhouette is within the normal range for age and technique. Right upper quadrant abdominal surgical clips are seen. [id number] degenerative changes of the visualized thoracolumbar spine noted.. Reading Location: [address] Assessment & Plan Assessment/Plan (1) Acute hypoxemic respiratory failure: (2) Acidosis, lactic: (3) Right upper lobe pneumonia: (4) Interstitial lung disease: (5) Sepsis: PLAN: Plan Patient is a 69-year-old female who presented [facility] ED on 11/03/2024 with worsening shortness of breath and cough. 1. Acute on chronic hypoxic respiratory failure secondary to community-acquired pneumonia in setting of interstitial fibrosis ? Admit under inpatient status to ICU. Lead Teller consulted. Requiring high flow nasal cannula on admission to maintain appropriate oxygen saturations, only wears 2 L nasal cannula at night at home. CTA chest on admit showed no PE but did show interstitial fibrosis with findings of atypical infection and mild bilateral pleural effusions. COVID/flu/RSV and respiratory panel negative. Blood cultures pending. Will treat empirically with IV ceftriaxone and azithromycin. Will also treat for interstitial fibrosis exacerbation with IV steroids and scheduled DuoNebs. Wean supplemental oxygen as able. 2. Sepsis without shock ? Met sepsis criteria on admit with leukocytosis, severely elevated lactic acid, acute respiratory failure, elevated total bilirubin, SBP less than 90 and suspected respiratory source. Given 30 cc/kg of IV fluids on admit with good improvement in blood pressure and resolution of elevated lactate. Treating with antibiotics as noted above. 3. Hypertension ? Holding home lisinopril?hydrochlorothiazide. 4. Hyperlipidemia ? Continue home fenofibrate. 5. Hypothyroidism ? Continue home Synthroid. DVT prophylaxis: Lovenox CODE STATUS: DNR CCA, okay to intubate Expected disposition: TBD Total clinical time spent by myself addressing the patient's medical issues, reviewing all the data, and collaborating with patient's care team: 75 minutes. Charges/Coding Visit Charges Inpatient E&M: 58645 Init Hosp L3
[2024-11-03] MEDS: 0.9% Normal Saline (1000mL) 1,000 ML 999 ML IV ×2 (13:09→14:18)
[2024-11-03] MEDS: Ceftriaxone 2 GM in 0.9% Normal Saline (50mL MB+) 50 ML IV (13:28)
--- NOTE | 2024-11-03 14:10 | CON.PCM.CC_ITS ---
Assessment & Plan Assessment/Plan (1) Interstitial lung disease: (2) Acute hypoxemic respiratory failure: PLAN: Plan RECOMMENDATIONS: 1. Continue heated high flow oxygen as ordered. Wean FiO2 to maintain saturations at or above 90%. 2. Continue empiric antibiotics. 3. Start scheduled IV steroids 40 mg every 6 hours. 4. Check respiratory viral panel, BNP and procalcitonin. 5. Obtain CTA chest. 6. Initiate appropriate DVT prophylaxis. IMPRESSIONS: 1. Acute hypoxemic respiratory failure The patient has a self-reported history of interstitial lung disease of unclear etiology and is currently followed by [facility] pulmonary medicine. The patient reported that she has been receiving rituximab infusions for her interstitial lung disease. At this time, I would recommend that we obtain outside hospital medical records pertinent to her treatment for her ILD at [facility], by Dr. Aishwarya Flores. In the interim, I would recommend that we obtain a CTA chest and check a respiratory viral panel, BNP and procalcitonin. It is reasonable to continue empiric antibiotics for now. I have no way of knowing if her current clinical status is a consequence of interstitial lung disease progression without having her outside hospital medical records. Continue heated high flow oxygen for now. It is certainly reasonable to continue empiric steroid therapy, IV Solu-Medrol 40 mg every 6 hours. 2. History of hypertension/hyperlipidemia/hypothyroidism Complicates care, management, recovery and prognosis. Continue home medications as indicated. This note was generated with [employer] dictation software. It may contain incorrect words, spelling, and punctuation that were not noted in checking the note before signing. HPI Consult Data Date of Consult: 11/04/24 HPI Narrative Reason for Consultation: Sepsis HPI Narrative: The patient is a 69-year-old female, with a history as outlined below, who presented to the emergency department on November 03 with shortness of breath. The patient reported that she has a history of unspecified interstitial lung disease and is currently followed by a veneer taping machine offbearer at [facility], Dr. Marysol Flores. The patient reported that she currently has an upcoming follow-up visit scheduled in 3 months but has been receiving rituximab infusions. She is a lifelong non-smoker, but does utilize 2 L/min of supplemental oxygen on a nightly basis. The patient is not clear as to the etiology for her interstitial lung disease. On presentation to the emergency department, the patient was documented to be afebrile but was notably tachycardic and tachypneic. Laboratory evaluation revealed a white blood cell count of 22,000. Blood gas was notable for a pH of 7.38 with a pCO2 of 39 and pO2 of 208. Chemistry profile was notable for a lactate of 5.5. Total bilirubin was increased to 1.7. COVID, influenza and RSV PCR's were negative. Chest imaging demonstrated sequelae of chronic interstitial disease. The patient was subsequently started on heated high flow oxygen and was ordered to receive antimicrobials and steroids. She was admitted to the medical intensive care unit for further management. [facility] Medical History (Updated 11/03/24 @ 12:[address] Kieran Espinosa MD) Post-menopausal History of steroid therapy Thyroid disease Rheumatoid arthritis Arthritis High cholesterol Interstitial lung disease Shortness of breath on exertion Umbilical hernia Hypothyroidism History of colon polyps HTN (hypertension) Hypercholesterolemia Home Medications ?Medication ?Instructions ?Recorded ?Last Taken ?Type multivitamin 1 ea PO DAILY 04/13/1704/13 History fenofibrate nanocrystallized 145 145 mg PO DAILY 06/15 Unknown History mg tablet (Tricor) levothyroxine 25 mcg capsule 25 mcg PO DAILY 06/15/18 05/14/22 History lisinopril 20 1 tab PO DAILY 05/07/22 Unkn own History mg-hydrochlorothiazide 25 mg tablet dapsone 100 mg tablet 100 mg PO DAILY 11/03/24 Unk nown History Allergy/AdvReac Type Severity Reaction Status Date / Time sulfamethoxazole (From Allergy Mild rash Verified 11/03/24 11:11 Bactrim) trimethoprim (From Bactrim) Allergy Mild rash Verified 11/03/24 11:11 amoxicillin Allergy Rash Verified 11/03/24 11:11 Family History Father Cancer prostate Grandfather Colon cancer Surgical History S/P bilateral inguinal hernia repair S/P cataract extraction History of ventral hernia repair (~09/2018) History of total hysterectomy History of colonoscopy History of cholecystectomy Social History Smoking Status: Never smoker alcohol intake: never ROS ROS Narrative 10 systems were reviewed with pertinent positives as noted in the HPI above. Physical Exam Const alert and no apparent distress General Appearance: cooperative, ill appearing and frail HEENT normocephalic and head/scalp atraumatic Eyes PERRL, EOMs intact bilaterally and conjunctivae normal Neck supple General: trachea midline Chest inspection of chest normal Resp no use of accessory muscles Effort and Inspection: tachypneic Auscultation: rales and diminished lung sounds Cardio S1 normal heart sound and S2 normal heart sound Rate: tachycardic GI normal to inspection, nondistended, normoactive bowel sounds Extremity no clubbing, cyanosis or edema Skin no rashes or lesions noted Neuro CN's II-XII intact bilaterally, moves all extremities and no focal motor deficits Psych cooperative and affect normal Lab / Micro Data 11/04/24 01:30 11/04/24 01:30 Labs: Laboratory Results - last 24 hr 11/03/24 11:10: WBC 22.2 H, RBC 4.25, Hgb 13.2, Hct 42.8, MCV 100.7 H, MCH 31.1, MCHC 30.8 L, RDW Std Deviation 55.3 H, RDW Coeff of Ulysses 15.1 H, Plt Count 356, MPV 11.2, Immature Gran % (Auto) 1.300 H, Neut % (Auto) 89.8 H, Lymph % (Auto) 2.2 L, Mcleod % (Auto) 5.8, Eos % (Auto) 0.3, Baso % (Auto) 0.6, Absolute Neuts (auto) 19.9 H, Absolute Lymphs (auto) 0.49 L, Nucleated RBC % 0, Sodium 141, Potassium 3.7, Chloride 107, Carbon Dioxide 22.0, Anion Gap 12, BUN 33 H, Creatinine 1.02, Estim Creat Clear Calc 38.17, Est GFR (MDRD) Af Amer 69, Est GFR (MDRD) Non-Af 57 L, BUN/Creatinine Ratio 32.4 H, Glucose 97, Lactic Acid 5.5 H*, Calcium 9.3, Total Bilirubin 1.70 H, AST 71 H, ALT 38, Alkaline Phosphatase 51, Total Protein 6.8, Albumin 3.6, Globulin 3.2, Albumin/Globulin Ratio 1.1 Micro: Microbiology 11/03/24 11:33 Mucosa - Nose SARS-CoV-2, Influenza & RSV (PCR) - Final ABG Data ABG results: ABG 11/03/24 11:43 Specimen Type ART Sample Site R Radial pH 7.38 Bicarbonate Actual 23.3 Total CO2 25 Base Excess -2 O2 Saturation 100 H O2 % 15.0 ABG pCO2 39.1 ABG pO2 208 H Raphael Test Positive O2 Delivery Device NRB Vent Mode Not entered Imaging Radiology Impression Chest X-Ray 11/03/24 12:09 IMPRESSION: Probable small right pleural effusion. No pneumothorax is noted. In addition to likely underlying chronic lung changes, prominent areas of airspace disease of the right upper and lower lung zones are seen, concerning for the presence of pneumonitis and/or atypical pulmonary edema. The cardiomediastinal silhouette is within the normal range for age and technique. Right upper quadrant abdominal surgical clips are seen. [id number] degenerative changes of the visualized thoracolumbar spine noted.. Reading Location: [id number] Charges/Coding Visit Charges Inpatient E&M: 54520 Init Hosp L3
[2024-11-03] MEDS: Azithromycin 500 MG in 0.9% Normal Saline (250mL Bag) 250 ML 255 MG IV (14:17)
[2024-11-03] MEDS: MethylPREDNISolone 125 MG/2 ML Vial IV (14:20)
--- NOTE | 2024-11-03 14:24 | CT_ITS ---
PROCEDURE: CTA CHEST W/WO CONTRAST REASON FOR EXAM: Hypoxemia, abnormal chest x-ray TECHNIQUE: CTA imaging of the chest with intravenous contrast. 3D reconstructions. CONTRAST: COMPARISON: None. FINDINGS: Hardware: None. Lymph nodes: No mediastinal hilar or axillary lymphadenopathy. Heart: Normal heart size. No pericardial effusion. RV/LV Diameter Ratio: N/A Thoracic Aorta: No thoracic aortic aneurysm or dissection. Mild calcifications. Pulmonary Vessels: No evidence of acute pulmonary emboli through the major subsegmental branches. Most Proximal Level of Embolus (if embolus present): N/A Lungs and Airways: Bilateral peripheral fibrotic changes with ground-glass opacities. Mild bilateral pleural effusions. Pleura: No pleural effusion. No pneumothorax. Upper Abdomen: Visualized portions of the upper abdominal viscera are unremarkable. Bones: Bone windows are unremarkable. CT/CTA Chest W/WO Contrast IMPRESSION: 1. No CT evidence of acute pulmonary embolism. 2. Interstitial fibrosis with findings of atypical infection. 3. Mild bilateral pleural effusions One or more dose reduction techniques were used (e.g., Automated exposure contr ol, adjustment of the mA and/or kV according to patient size, use of iterative reconstruction technique). Reading Location: [facility]
[2024-11-03 15:24] LABS: Reflex Lactate? Y
[2024-11-03 16:24] LABS: BNP,B-Type NATRIURETIC PEPTIDE 135.1 pg/mL (0-100); Procalcitonin 0.24 ng/mL (0.00-0.09)
[2024-11-03 17:28] LABS: Lactic Acid 0.6 mmol/L (0.4-1.9)
[2024-11-03] MEDS: Ipratropium/Albuterol Sulfate 3 ML AMPUL.NEB INHALATION (19:16)
[2024-11-04] VITALS (32 sets, daily range): BP systolic 80–131; BP diastolic 48–97; PULSE 70–99; RESP 11–40; TEMP 36.6–36.8; O2SAT 90–99
[2024-11-04 01:48] LABS: Hematocrit 30.2 % (37-47); Hemoglobin 9.5 g/dL (12.0-15.0); Mean Corp Hgb Conc 31.5 g/dL (32-36); Mean Corpuscular Hgb 30.9 pg (27.0-32.0); Mean Corpuscular Volume 98.4 fL (81-99); Platelet Count 254 K/mm3 (150-450); RBC Distribution Width CV 14.6 % (11.6-14.6); RBC Distribution Width SD 52.7 fl (35.1-43.9); Red Blood Count 3.07 M/mm3 (4.2-5.4)
[2024-11-04 02:21] LABS: ALB/GLOB Ratio 0.9 RATIO (0.9-2.4); AST(SGOT) 31 U/L (15-37); Alanine Aminotransfer ALT/SGPT 24 U/L (13-56); Albumin, Serum 2.6 g/dL (3.2-5.0); Alkaline Phosphatase 40 U/L (45-117); Anion Gap 6 (5-15); BUN 35 mg/dL (7-18); BUN/Creat Ratio 50.9 RATIO (10-20); Calcium,Total 7.6 mg/dL (8.5-10.1); Chloride 113 mmol/L (98-107); Creatinine, Serum 0.69 mg/dL (0.55-1.02); EST Glomerular Filtration Rate 89 mL/min (>60); Est Glom Filt Rate - Afr Amer 108 mL/min (>60); Estimated Creatinine Clearance 48.67 ml/min; Globulin 2.8 g/dL (2.2-4.2); Glucose 134 mg/dL (74-106); Potassium 3.8 mmol/L (3.5-5.1); Protein, Total 5.4 g/dL (6.4-8.2); Sodium Level 142 mmol/L (136-145)
[2024-11-04] MEDS: Levothyroxine 25 MCG TABLET PO (06:45)
--- NOTE | 2024-11-04 07:26 | PCM.PN.HOSP ---
Reason for Visit Reason for Visit: Diagnoses Sepsis, unspecified organism (11/03/24) Acidosis, unspecified (11/03/24) Pneumonia, unspecified organism (11/03/24) Interstitial pulmonary disease, unspecified (11/03/24) Acute respiratory failure with hypoxia (11/03/24) Objective Data Objective Data Vital Signs: Vital Signs Temp Pulse Resp BP Pulse Ox O2 Del Method O2 Flow Rate 97.9 F 70 28 H 86/63 L 95 Airvo 55 11/04/24 05:00 11/04/24 07:00 11/04/24 07:00 11/04/24 07:00 11/04/24 07:00 11/04/24 07:00 11/04/24 07:00 FiO2 60 11/04/24 07:00 Oxygen Flow Rate (L/min) 55 Oxygen Delivery Method Airvo Weight: 105 lb 13.15 oz Body Mass Index (BMI) 20.0 Intake & Output: Intake and Output for Last 24 Hours 11/02/24 11/03/24 11/04/24 23:59 23:59 23:59 Intake Total 2305 / 2305 Balance 2305 / 2305 Lab / Micro Data 11/04/24 01:30 11/04/24 01:30 Labs: Laboratory Results - last 24 hr 11/03/24 11:10: WBC 22.2 H, RBC 4.25, Hgb 13.2, Hct 42.8, MCV 100.7 H, MCH 31.1, MCHC 30.8 L, RDW Std Deviation 55.3 H, RDW Coeff of Ulysses 15.1 H, Plt Count 356, MPV 11.2, Immature Gran % (Auto) 1.300 H, Neut % (Auto) 89.8 H, Lymph % (Auto) 2.2 L, [place] % (Auto) 5.8, Eos % (Auto) 0.3, Baso % (Auto) 0.6, Absolute Neuts (auto) 19.9 H, Absolute Lymphs (auto) 0.49 L, Nucleated RBC % 0, Sodium 141, Potassium 3.7, Chloride 107, Carbon Dioxide 22.0, Anion Gap 12, BUN 33 H, Creatinine 1.02, Estim Creat Clear Calc 38.17, Est GFR (MDRD) Af Amer 69, Est GFR (MDRD) Non-Af 57 L, BUN/Creatinine Ratio 32.4 H, Glucose 97, Lactic Acid 5.5 H*, Calcium 9.3, Total Bilirubin 1.70 H, AST 71 H, ALT 38, Alkaline Phosphatase 51, B-Natriuretic Peptide 135.1 H, Total Protein 6.8, Albumin 3.6, Globulin 3.2, Albumin/Globulin Ratio 1.1, Procalcitonin 0.24 H 11/03/24 16:45: Lactic Acid 0.6 11/04/24 01:30: WBC 10.0, RBC 3.07 L, Hgb 9.5 L, Hct 30.2 L, MCV 98.4, MCH 30.9, MCHC 31.5 L, RDW Std Deviation 52.7 H, RDW Coeff of Ulysses 14.6, Plt Count 254, MPV 11.0, Sodium 142, Potassium 3.8, Chloride 113 H, Carbon Dioxide 24.0, Anion Gap 6, BUN 35 H, Creatinine 0.69, Estim Creat Clear Calc 48.67, Est GFR (MDRD) Af Amer 108, Est GFR (MDRD) Non-Af 89, BUN/Creatinine Ratio 50.9 H, Glucose 134 H, Calcium 7.6 L, Total Bilirubin 0.60, AST 31, ALT 24, Alkaline Phosphatase 40 L, Total Protein 5.4 L, Albumin 2.6 L, Globulin 2.8, Albumin/Globulin Ratio 0.9 Micro: Microbiology 11/03/24 15:45 Mucosa - Nasopharyngeal Respiratory Panel (PCR) - Final 11/03/24 11:33 Mucosa - Nose SARS-CoV-2, Influenza & RSV (PCR) - Final ABG Data ABG results: ABG 11/03/24 11:43 Specimen Type ART Sample Site R Radial pH 7.38 Bicarbonate Actual 23.3 Total CO2 25 Base Excess -2 O2 Saturation 100 H O2 % 15.0 ABG pCO2 39.1 ABG pO2 208 H Raphael Test Positive O2 Delivery Device NRB Vent Mode Not entered Radiography Diagnostic Testing: Radiology Impression Chest X-Ray 11/03/24 12:09 IMPRESSION: Probable small right pleural effusion. No pneumothorax is noted. In addition to likely underlying chronic lung changes, prominent areas of airspace disease of the right upper and lower lung zones are seen, concerning for the presence of pneumonitis and/or atypical pulmonary edema. The cardiomediastinal silhouette is within the normal range for age and technique. Right upper quadrant abdominal surgical clips are seen. Rqva-[id number]-qthghzyj degenerative changes of the visualized thoracolumbar spine noted.. Reading Location: [id number] Chest CTA 11/03/24 14:24 IMPRESSION: 1. No CT evidence of acute pulmonary embolism. 2. Interstitial fibrosis with findings of atypical infection. 3. Mild bilateral pleural effusions One or more dose reduction techniques were used (e.g., Automated exposure control, adjustment of the mA and/or kV according to patient size, use of iterative reconstruction technique). Reading Location: [facility] Physical Exam Narrative Seen and examined. Patient still short of breath on Airvo. 60% FiO2. BP fluctuates 86/63 208/73. Heart rate 72 to 91/min. Tachypneic, RR 28/min. Denies any fever or chills. Has dry cough. Denies dizziness lightheadedness or symptoms of hypotension Physical exam General: Alert, Oriented x3, Cooperative HEENT: Atraumatic, PERRLA, EOMI, Normocephalic Oral: Oral mucosa dry no Gingival or Mucosal Lesions/ Ulcerations Neck: Supple, No JVD, Negative Carotid Bruits Chest wall/Lungs: Air entry severely diminished in bilateral lung bases. Bilateral diffuse inspiratory rales Cardiovascular: Sinus rhythm, Normal S1, Normal S2, systolic murmur Abdomen: Bowel Sounds Present, Soft, Non Tender, Non-Distended : No dysuria. No renal angle tenderness. No suprapubic tenderness. Extremities: No edema, Capillary Refill Less than 3 Seconds Skin: No rashes, No breakdown Musculoskeletal: No Tenderness to Palpation of Joints or Extremities Neurological: Cranial nerves II-XII grossly intact, DTR 2+/4. No acute focal neurological deficit. Psych/Mental Status: Flat Assessment & Plan Assessment/Plan (1) Acute hypoxemic respiratory failure: (2) Acidosis, lactic: (3) Right upper lobe pneumonia: (4) Interstitial lung disease: (5) Sepsis: PLAN: Plan Patient is a 69-year-old female who presented [facility] ED on 11/03/2024 with worsening shortness of breath and cough for past few days. Pulse ox was 70% tachypnea RR 30/min with mottled extremities noted and placed on nonrebreather by EMS. Initially patient on 2 L of oxygen at night and as needed. 1. Acute on chronic hypoxic respiratory failure secondary to community-acquired pneumonia in setting of interstitial fibrosis: ABG 7.38/39/208. Patient admitted in ICU. [employer] consulted and consult reviewed. Patient required high flow oxygen in ED, on Airvo here. CTA chest on admit showed no PE but did show interstitial fibrosis with findings of atypical infection and mild bilateral pleural effusions. COVID/flu/RSV and respiratory panel negative. Blood cultures pending. Empirically on IV ceftriaxone and azithromycin. Patient has interstitial fibrosis exacerbation with IV steroids and scheduled DuoNebs. Wean supplemental oxygen as able. 2D echo EF 65%, normal LV size, normal RV size and systolic function. No Doppler evidence for ASD. No tricuspid valve, trivial TR. 2. Unclear about sepsis: Patient has signs and symptoms of acute hypoxic respiratory failure with leukocytosis, elevated lactic acid. Patient has low BP SBP less than 90 mmHg. Patient empirically on IV antibiotic. Patient had 30 mill per KG IV fluid bolus. 3. Hypertension ? Holding home lisinopril?hydrochlorothiazide. 4. Hyperlipidemia ? Continue home fenofibrate. 5. Hypothyroidism ? Continue home Synthroid. DVT prophylaxis: Lovenox CODE STATUS: DNR CCA, okay to intubate Charges/Coding Visit Charges Inpatient E&M: 03353 [facility] Hosp L3
[2024-11-04] MEDS: Ipratropium/Albuterol Sulfate 3 ML AMPUL.NEB INHALATION ×3 (07:59→19:11)
[2024-11-04] MEDS: Ceftriaxone 2 GM in 0.9% Normal Saline (50mL MB+) 50 ML IV (08:25)
[2024-11-04] MEDS: Enoxaparin 40 MG/0.4 ML Syringe SC (08:25)
[2024-11-04] MEDS: Fenofibrate 145 MG Tablet PO (08:25)
[2024-11-04] MEDS: Azithromycin 500 MG in 0.9% Normal Saline (250mL Bag) 250 ML 255 MG IV (08:26)
--- NOTE | 2024-11-04 08:59 | ECHOD_ITS ---
Reason For Study: HYPOTENSION Procedure This was a 2D Doppler, Color Flow transthoracic echocardiogram. Exam performed portable in ICU/CCU. Left Ventricle Normal LV size. The estimated ejection fraction is 65 %. No evidence for diastolic dysfunction. No regional wall motion abnormalities noted. Right Ventricle Normal RV size. Normal systolic function. Atria The left and right atria are normal. No doppler evidence for ASD. Mitral Valve There is no mitral valve stenosis. No mitral valve insufficiency. Tricuspid Valve There is no tricuspid stenosis. Trivial tricuspid valve insufficiency. Due to insufficient TR envelope right ventricular systolic pressure could not be accurately assessed but appears to be elevated. Aortic Valve Aortic sclerosis, no stenosis. No aortic valve insufficiency. Pulmonic Valve There is no pulmonic valvular stenosis. No pulmonic valve insufficiency. Great Vessels Normal aortic root. Pericardium/Pleural No pericardial effusion. MMode/2D Measurements & Calculations LVIDd: 3.6 cm IVSd: 0.88 cm LVOT diam: 1.9 cm LVIDs: 2.9 cm LVPWd: 1.2 cm LVOT area: 2.8 cm2 FS: 20.1 % _ Ao root diam: 2.9 cm LAV(MOD-sp4): 34.7 ml LVAd ap4: 20.1 cm2 LVLd ap4: 6.7 cm EDV(MOD- sp4): 50.2 ml EDV(sp4-el): 51.0 ml LVAs ap4: 10.2 cm2 LVLs ap4: 5.7 cm ESV(MOD- sp4): 15.2 ml ESV(sp4-el): 15.5 ml EF(MOD-sp4): 69.8 % EF(sp4-el): 69.7 % _ SV(MOD-sp4): 35.1 ml SV(sp4-el): 35.5 ml LA A4 area: 15.6 cm2 SI(MOD-sp4): 24.4 ml/m2 _ LA dimension(2D): 2.9 cm RA A4 area: 9.6 cm2 Time Measurements MV dec time: 0.18 sec Doppler Measurements & Calculations MV E max yovani: 75.1 cm/sec Lat Peak E' Yovani: 11.0 cm/sec Med Peak E' Yovani: 9.5 cm/sec MV A max yovani: 108.3 cm/sec E/E' lat: 6.8 E/E' med: 7.9 MV E/A: 0.69 _ MV V2 max: 114.1 cm/sec Ao V2 max: 132.9 cm/sec MV max P.2 mmHg MV dec slope: 426.7 cm/sec2 Ao max P.1 mmHg MV V2 mean: 72.7 cm/sec Ao V2 mean: 92.8 cm/sec MV mean P.3 mmHg Ao mean P.9 mmHg MV V2 VTI: 24.8 cm Ao V2 VTI: 23.6 cm AV (velocity ratio): 0.94 MVA(VTI): 2.5 cm2 ROYAL(I,D): 2.6 cm2 ROYAL(V,D): 2.7 cm2 _ LV V1 max: 126.8 cm/sec SV(LVOT): 62.0 ml PA V2 max: 81.2 cm/sec LV V1 max P.4 mmHg PA V2 mean: 58.2 cm/sec LV V1 mean P.2 mmHg LV V1 mean: 81.2 cm/sec LV V1 VTI: 22.2 cm _ TR max yovani: 394.9 cm/sec TR max P.4 mmHg ECHO/Echo Complete Interpretation Summary The estimated ejection fraction is 65 %. No evidence for diastolic dysfunction. Ordering Physician: Bright Wallace Referring Physician: AURORA PARDO Performed By: Adelina Powell RCS
--- NOTE | 2024-11-04 10:01 | PCM.PN.INT ---
Assessment & Plan Assessment/Plan (1) Interstitial lung disease: (2) Acute hypoxemic respiratory failure: PLAN: Plan RECOMMENDATIONS: 1. Continue heated high flow oxygen as ordered. Wean FiO2 to maintain saturations at or above 90%. 2. Continue empiric antibiotics and corticosteroids. 3. Initiate appropriate DVT prophylaxis. 4. Obtain medical records from the patient's primary staff internist office based only at [facility]. IMPRESSIONS: 1. Acute hypoxemic respiratory failure The patient has a self-reported history of interstitial lung disease of unclear etiology and is currently followed by [facility] pulmonary medicine. The patient reported that she has been receiving rituximab infusions for her interstitial lung disease. At this time, I would recommend that we obtain outside hospital medical records pertinent to her treatment for her ILD at [facility], by Dr. Aishwarya Flores. CTA chest ruled out pulmonary embolism but did reveal sequelae of interstitial lung disease. The patient will be maintained on empiric antibiotics for now. I have no way of knowing if her current clinical status is a consequence of interstitial lung disease progression without having her outside hospital medical records. Continue heated high flow oxygen for now. The patient will be maintained on scheduled IV steroids as ordered. 2. History of hypertension/hyperlipidemia/hypothyroidism Complicates care, management, recovery and prognosis. Continue home medications as indicated. This note was generated with [employer] dictation software. It may contain incorrect words, spelling, and punctuation that were not noted in checking the note before signing. Subjective Subjective The patient was seen and examined at the bedside this morning. Events from the last 24 hours have been reviewed. The patient is currently afebrile, hemodynamically stable and maintaining appropriate oxygen saturations on heated high flow oxygen with an FiO2 requirement of 60%. The patient is currently documented to be overall net +2.5 L for the hospitalization. White blood cell count is normal. Hemoglobin is dropped to 9.5 g/dL. Platelet count is within normal limits. Creatinine is within normal limits. We are still awaiting records from the patient's primary staff internist office based only at [facility]. Objective Data Objective Data The patient's most recent lab work, culture data and imaging studies have all been personally reviewed. Respiratory viral panel was negative. Strep and urine Legionella antigens were negative. Blood cultures are pending. Vital Signs: Vital Signs Temp Pulse Resp BP Pulse Ox O2 Del Method O2 Flow Rate 98.1 F 89 24 H 125/97 H 95 Airvo 55 01/30/25 09:00 11/04/24 09:00 11/04/24 09:00 11/04/24 09:00 11/04/24 09:00 11/04/24 09:00 11/04/24 09:00 FiO2 60 11/04/24 09:00 Oxygen Flow Rate (L/min) 55 Oxygen Delivery Method Airvo Weight: 105 lb 13.15 oz Body Mass Index (BMI) 20.0 Intake & Output: Intake and Output for Last 24 Hours 11/02/24 11/03/24 11/04/24 23:59 23:59 23:59 Intake Total 2305 / 2305 305 / 305 Output Total 120 / 120 Balance 2305 / 2305 185 / 185 Lab / Micro Data Attestation: I reviewed the patient's lab results. 11/04/24 01:30 11/04/24 01:30 Labs: Laboratory Results - last 24 hr 11/03/24 11:10: WBC 22.2 H, RBC 4.25, Hgb 13.2, Hct 42.8, MCV 100.7 H, MCH 31.1, MCHC 30.8 L, RDW Std Deviation 55.3 H, RDW Coeff of Ulysses 15.1 H, Plt Count 356, MPV 11.2, Immature Gran % (Auto) 1.300 H, Neut % (Auto) 89.8 H, Lymph % (Auto) 2.2 L, [place] % (Auto) 5.8, Eos % (Auto) 0.3, Baso % (Auto) 0.6, Absolute Neuts (auto) 19.9 H, Absolute Lymphs (auto) 0.49 L, Nucleated RBC % 0, Sodium 141, Potassium 3.7, Chloride 107, Carbon Dioxide 22.0, Anion Gap 12, BUN 33 H, Creatinine 1.02, Estim Creat Clear Calc 38.17, Est GFR (MDRD) Af Amer 69, Est GFR (MDRD) Non-Af 57 L, BUN/Creatinine Ratio 32.4 H, Glucose 97, Lactic Acid 5.5 H*, Calcium 9.3, Total Bilirubin 1.70 H, AST 71 H, ALT 38, Alkaline Phosphatase 51, B-Natriuretic Peptide 135.1 H, Total Protein 6.8, Albumin 3.6, Globulin 3.2, Albumin/Globulin Ratio 1.1, Procalcitonin 0.24 H 11/03/24 16:45: Lactic Acid 0.6 11/04/24 01:30: WBC 10.0, RBC 3.07 L, Hgb 9.5 L, Hct 30.2 L, MCV 98.4, MCH 30.9, MCHC 31.5 L, RDW Std Deviation 52.7 H, RDW Coeff of Ulysses 14.6, Plt Count 254, MPV 11.0, Sodium 142, Potassium 3.8, Chloride 113 H, Carbon Dioxide 24.0, Anion Gap 6, BUN 35 H, Creatinine 0.69, Estim Creat Clear Calc 48.67, Est GFR (MDRD) Af Amer 108, Est GFR (MDRD) Non-Af 89, BUN/Creatinine Ratio 50.9 H, Glucose 134 H, Calcium 7.6 L, Total Bilirubin 0.60, AST 31, ALT 24, Alkaline Phosphatase 40 L, Total Protein 5.4 L, Albumin 2.6 L, Globulin 2.8, Albumin/Globulin Ratio 0.9 Micro: Microbiology 11/04/24 08:04 Urine, Clean Catch Legionella Antigen - Final 11/04/24 08:04 Urine, Clean Catch Streptococcus pneumoniae Antigen (M - Final 11/03/24 15:45 Mucosa - Nasopharyngeal Respiratory Panel (PCR) - Final 11/03/24 11:33 Mucosa - Nose SARS-CoV-2, Influenza & RSV (PCR) - Final ABG Data ABG results: ABG 11/03/24 11:43 Specimen Type ART Sample Site R Radial pH 7.38 Bicarbonate Actual 23.3 Total CO2 25 Base Excess -2 O2 Saturation 100 H O2 % 15.0 ABG pCO2 39.1 ABG pO2 208 H Raphael Test Positive O2 Delivery Device NRB Vent Mode Not entered Radiography Diagnostic Testing: Radiology Impression Chest X-Ray 11/03/24 12:09 IMPRESSION: Probable small right pleural effusion. No pneumothorax is noted. In addition to likely underlying chronic lung changes, prominent areas of airspace disease of the right upper and lower lung zones are seen, concerning for the presence of pneumonitis and/or atypical pulmonary edema. The cardiomediastinal silhouette is within the normal range for age and technique. Right upper quadrant abdominal surgical clips are seen. Curd-kq-meqtvnxm degenerative changes of the visualized thoracolumbar spine noted.. Reading Location: [id number] Chest CTA 11/03/24 14:24 IMPRESSION: 1. No CT evidence of acute pulmonary embolism. 2. Interstitial fibrosis with findings of atypical infection. 3. Mild bilateral pleural effusions One or more dose reduction techniques were used (e.g., Automated exposure control, adjustment of the mA and/or kV according to patient size, use of iterative reconstruction technique). Reading [facility] Physical Exam Const alert and no apparent distress General Appearance: cooperative, ill appearing and frail HEENT normocephalic and head/scalp atraumatic Eyes PERRL, EOMs intact bilaterally and conjunctivae normal Neck supple General: trachea midline Chest inspection of chest normal Resp normal respiratory effort and no use of accessory muscles Auscultation: rales and diminished lung sounds Cardio regular rate, regular rhythm, S1 normal heart sound and S2 normal heart sound GI normal to inspection, nondistended, normoactive bowel sounds Extremity no clubbing, cyanosis or edema Skin no rashes or lesions noted Neuro CN's II-XII intact bilaterally, moves all extremities and no focal motor deficits Psych cooperative and affect normal Charges/Coding Visit Charges Inpatient E&M: 18261 Subs Hosp L2
--- NOTE | 2024-11-04 10:44 | CASEMGMT ---
JUDY RODRIGUEZ Assessment Face to Face with patient for initial transition planning/care coordination assessment. JUDY RODRIGUEZ introduced self and role at [facility], pt voices understanding. Pt is A&Ox4 and is resting comfortably in bed and is calm. Care providers, pharmacy, and demographics verified. Admitting dx: Sepsis, Pneumonia, RF LACE Strata: 1 PCP: Marysol Olson Specialists: Marysol Flores ([facility]), Charleen Gilliam ([facility]) Preferred Pharmacy: [facility] Insurance: [place] [facility] Dual Adv., YAMILETH Prescription Benefit: Yes LNOK: Pancho (Son) Living Arrangements: Pt lives alone in a ground level apartment with a flat entrance ADLs/IADLs: Pt reports that she is independent. Current 6-Click is 22. However, PT is to be held today (per ICU rounds) d/t pt current oxygen requirements. Transportation: Self, son. Denies concerns DME: Home oxygen through [employer]. TC to [employer] and [employer] states that the pt current order is 3L continuous. Pt states that she only wears 2L HS. Pt has a concentrator, portable tanks, and an inhaler. Pt states that her son can bring in a portable tank if needed. Pt does not have a pulse ox but states that she can afford one. HHC/SNF: Reports HH x2 years ago but cannot recall the name of the agency. Denies SNF Pt?s goal: Return home Plan: Home, follow for oxygen needs. Pt denies the need for HH, OP Tx, or CCN. Pt states that she feels safe returning home alone at the time of DC. Pt states that her son can pick her up from the hospital once she is medically ready. Pt denies further questions or concerns at this time. CM remains available to follow. Alicia Cano RN, CM
[2024-11-05] VITALS (35 sets, daily range): BP systolic 88–129; BP diastolic 48–84; PULSE 65–92; RESP 14–40; TEMP 36.4–36.8; O2SAT 85–98; BMI 20.5
[2024-11-05] MEDS: Levothyroxine 25 MCG TABLET PO (05:19)
--- NOTE | 2024-11-05 07:24 | PN.CC_ITS ---
Assessment & Plan Assessment/Plan (1) Interstitial lung disease: (2) Acute hypoxemic respiratory failure: PLAN: Plan RECOMMENDATIONS: 1. Continue heated high flow oxygen as ordered. Wean FiO2 to maintain saturations at or above 90%. 2. Continue empiric antibiotics and corticosteroids. 3. Initiate appropriate DVT prophylaxis. 4. Awaiting medical records from the patient's primary etl database developer at [facility]. IMPRESSIONS: 1. Acute hypoxemic respiratory failure The patient has a self-reported history of interstitial lung disease of unclear etiology and is currently followed by [facility] pulmonary medicine. The patient reported that she has been receiving rituximab infusions for her interstitial lung disease. At this time, I would recommend that we obtain outside hospital medical records pertinent to her treatment for her ILD at [facility], by Dr. iAshwarya Flores. CTA chest ruled out pulmonary embolism but did reveal sequelae of interstitial lung disease. The patient will be maintained on empiric antibiotics for now. I have no way of knowing if her current clinical status is a consequence of interstitial lung disease progression without having her outside hospital medical records. Continue heated high flow oxygen for now. The patient will be maintained on scheduled IV steroids as ordered, along with empiric antimicrobials. 2. History of hypertension/hyperlipidemia/hypothyroidism Complicates care, management, recovery and prognosis. Continue home medications as indicated. This note was generated with [employer] dictation software. It may contain incorrect words, spelling, and punctuation that were not noted in checking the note before signing. Subjective Subjective The patient was seen and examined at the bedside this morning. Events from the last 24 hours have been reviewed. The patient is currently afebrile, hemodynamically stable and maintaining appropriate oxygen saturations on heated high flow oxygen with an FiO2 of 60% and flow rate of 55 L/min. No overnight events were noted. The patient is documented to be overall net +2.5 L for the hospitalization. White blood cell count is mildly elevated at 12,000 with a hemoglobin of 9.0 g/dL and platelet count of 251,000. Although pulmonary records were requested from [facility] yesterday, we are still awaiting their arrival. Objective Data Objective Data The patient's most recent lab work, culture data and imaging studies have all been personally reviewed. Respiratory viral panel was negative. Strep and urine Legionella antigens were negative. Blood cultures have not demonstrated any growth to date. Vital Signs: Vital Signs Temp Pulse Resp BP Pulse Ox O2 Del Method O2 Flow Rate 98.3 F 67 28 H 92/62 94 Airvo 55 11/05/24 04:00 11/05/24 07:00 11/05/24 07:00 11/05/24 07:00 11/05/24 07:00 11/05/24 07:00 11/05/24 07:00 FiO2 60 11/05/24 07:00 Oxygen Flow Rate (L/min) 55 Oxygen Delivery Method Airvo Weight: 108 lb 14.534 oz Body Mass Index (BMI) 20.5 Intake & Output: Intake and Output for Last 24 Hours 11/03/24 11/04/24 11/05/24 23:59 23:59 23:59 Intake Total 2305 / 2305 305 / 305 Output Total 120 / 121 Balance 2305 / 2305 185 / 184 - Lab / Micro Data Attestation: I reviewed the patient's lab results. 11/05/24 07:50 11/04/24 01:30 Labs: Laboratory Results - last 24 hr 11/03/24 11:10: WBC 22.2 H, RBC 4.25, Hgb 13.2, Hct 42.8, MCV 100.7 H, MCH 31.1, MCHC 30.8 L, RDW Std Deviation 55.3 H, RDW Coeff of Ulysses 15.1 H, Plt Count 356, MPV 11.2, Immature Gran % (Auto) 1.300 H, Neut % (Auto) 89.8 H, Lymph % (Auto) 2.2 L, [place] % (Auto) 5.8, Eos % (Auto) 0.3, Baso % (Auto) 0.6, Absolute Neuts (auto) 19.9 H, Absolute Lymphs (auto) 0.49 L, Nucleated RBC % 0, Sodium 141, Potassium 3.7, Chloride 107, Carbon Dioxide 22.0, Anion Gap 12, BUN 33 H, Creatinine 1.02, Estim Creat Clear Calc 38.17, Est GFR (MDRD) Af Amer 69, Est GFR (MDRD) Non-Af 57 L, BUN/Creatinine Ratio 32.4 H, Glucose 97, Lactic Acid 5.5 H*, Calcium 9.3, Total Bilirubin 1.70 H, AST 71 H, ALT 38, Alkaline Phosphatase 51, B-Natriuretic Peptide 135.1 H, Total Protein 6.8, Albumin 3.6, Globulin 3.2, Albumin/Globulin Ratio 1.1, Procalcitonin 0.24 H 11/03/24 16:45: Lactic Acid 0.6 11/04/24 01:30: WBC 10.0, RBC 3.07 L, Hgb 9.5 L, Hct 30.2 L, MCV 98.4, MCH 30.9, MCHC 31.5 L, RDW Std Deviation 52.7 H, RDW Coeff of Ulysses 14.6, Plt Count 254, MPV 11.0, Sodium 142, Potassium 3.8, Chloride 113 H, Carbon Dioxide 24.0, Anion Gap 6, BUN 35 H, Creatinine 0.69, Estim Creat Clear Calc 48.67, Est GFR (MDRD) Af Amer 108, Est GFR (MDRD) Non-Af 89, BUN/Creatinine Ratio 50.9 H, Glucose 134 H, Calcium 7.6 L, Total Bilirubin 0.60, AST 31, ALT 24, Alkaline Phosphatase 40 L, Total Protein 5.4 L, Albumin 2.6 L, Globulin 2.8, Albumin/Globulin Ratio 0.9 Micro: Microbiology 11/04/24 08:04 Urine, Clean Catch Legionella Antigen - Final 11/04/24 08:04 Urine, Clean Catch Streptococcus pneumoniae Antigen (M - Final 11/03/24 15:45 Mucosa - Nasopharyngeal Respiratory Panel (PCR) - Final 11/03/24 11:33 Mucosa - Nose SARS-CoV-2, Influenza & RSV (PCR) - Final ABG Data ABG results: ABG 11/03/24 11:43 Specimen Type ART Sample Site R Radial pH 7.38 Bicarbonate Actual 23.3 Total CO2 25 Base Excess -2 O2 Saturation 100 H O2 % 15.0 ABG pCO2 39.1 ABG pO2 208 H Raphael Test Positive O2 Delivery Device NRB Vent Mode Not entered Radiography Diagnostic Testing: Radiology Impression Echocardiogram 11/04/24 08:59 Interpretation Summary The estimated ejection fraction is 65 %. No evidence for diastolic dysfunction. Ordering Physician: Bright Wallace Referring Physician: AURORA PARDO Performed By: Adelina Powell RCS Physical Exam Const alert and no apparent distress General Appearance: cooperative, ill appearing and frail HEENT normocephalic and head/scalp atraumatic Eyes PERRL, EOMs intact bilaterally and conjunctivae normal Neck supple General: trachea midline Chest inspection of chest normal Resp normal respiratory effort and no use of accessory muscles Auscultation: rales and diminished lung sounds Cardio regular rate, regular rhythm, S1 normal heart sound and S2 normal heart sound GI normal to inspection, nondistended, normoactive bowel sounds Extremity no clubbing, cyanosis or edema Skin no rashes or lesions noted Neuro CN's II-XII intact bilaterally, moves all extremities and no focal motor deficits Psych cooperative and affect normal Charges/Coding Visit Charges Inpatient E&M: 57188 Subs Hosp L2
--- NOTE | 2024-11-05 07:32 | PCM.PN.HOSP ---
Reason for Visit Reason for Visit: Diagnoses Sepsis, unspecified organism (11/03/24) Acidosis, unspecified (11/03/24) Pneumonia, unspecified organism (11/03/24) Interstitial pulmonary disease, unspecified (11/03/24) Acute respiratory failure with hypoxia (11/03/24) Objective Data Objective Data Vital Signs: Vital Signs Temp Pulse Resp BP Pulse Ox O2 Del Method O2 Flow Rate 98.3 F 67 28 H 92/62 94 Airvo 55 11/05/24 04:00 11/05/24 07:00 11/05/24 07:00 11/05/24 07:00 11/05/24 07:00 11/05/24 07:00 11/05/24 07:00 FiO2 60 11/05/24 07:00 Oxygen Flow Rate (L/min) 55 Oxygen Delivery Method Airvo Weight: 108 lb 14.534 oz Body Mass Index (BMI) 20.5 Intake & Output: Intake and Output for Last 24 Hours 11/03/24 11/04/24 11/05/24 23:59 23:59 23:59 Intake Total 2305 / 2305 305 / 305 Output Total 120 / 121 Balance 2305 / 2305 185 / 184 -1 / -1 Lab / Micro Data 11/05/24 07:50 11/05/24 07:50 Micro: Microbiology 11/04/24 08:04 Urine, Clean Catch Legionella Antigen - Final 11/04/24 08:04 Urine, Clean Catch Streptococcus pneumoniae Antigen (M - Final 11/03/24 15:45 Mucosa - Nasopharyngeal Respiratory Panel (PCR) - Final 11/03/24 11:33 Mucosa - Nose SARS-CoV-2, Influenza & RSV (PCR) - Final Radiography Diagnostic Testing: Radiology Impression Echocardiogram 11/04/24 08:59 Interpretation Summary The estimated ejection fraction is 65 %. No evidence for diastolic dysfunction. Ordering Physician: Bright Wallace Referring Physician: AURORA PARDO Performed By: Adelina Powell RCS Physical Exam Narrative Seen and examined. Patient still short of breath on Airvo. 50% FiO2. Tachypneic goes well, 20-32/m Denies any fever or chills. Has dry cough. Denies dizziness lightheadedness or symptoms of hypotension Physical exam General: Alert, Oriented x3, Cooperative HEENT: Atraumatic, PERRLA, EOMI, Normocephalic Oral: Oral mucosa dry no Gingival or Mucosal Lesions/ Ulcerations Neck: Supple, No JVD, Negative Carotid Bruits Chest wall/Lungs: Air entry severely diminished in bilateral lung bases. Bilateral diffuse inspiratory rales Cardiovascular: Sinus rhythm, Normal S1, Normal S2, systolic murmur Abdomen: Bowel Sounds Present, Soft, Non Tender, Non-Distended : No dysuria. No renal angle tenderness. No suprapubic tenderness. Extremities: No edema, Capillary Refill Less than 3 Seconds Skin: No rashes, No breakdown Musculoskeletal: No Tenderness to Palpation of Joints or Extremities Neurological: Cranial nerves II-XII grossly intact, DTR 2+/4. No acute focal neurological deficit. Psych/Mental Status: Flat Assessment & Plan Assessment/Plan (1) Acute hypoxemic respiratory failure: (2) Acidosis, lactic: (3) Right upper lobe pneumonia: (4) Interstitial lung disease: (5) Sepsis: PLAN: Plan Patient is a 69-year-old female who presented [facility] ED on 11/03/2024 with worsening shortness of breath and cough for past few days. Pulse ox was 70% tachypnea RR 30/min with mottled extremities noted and placed on nonrebreather by EMS. Initially patient on 2 L of oxygen at night and as needed. 1. Acute on chronic hypoxic respiratory failure secondary to community-acquired pneumonia in setting of interstitial fibrosis: ABG 7.38/39/208. Patient admitted in ICU. Fulfillment Specialist consulted and consult reviewed. Patient required high flow oxygen in ED, on Airvo here. CTA chest on admit showed no PE but did show interstitial fibrosis with findings of atypical infection and mild bilateral pleural effusions. COVID/flu/RSV and respiratory panel negative. Blood cultures pending. Empirically on IV ceftriaxone and azithromycin. Patient has interstitial fibrosis exacerbation with IV steroids and scheduled DuoNebs. Wean supplemental oxygen as able. 2D echo EF 65%, normal LV size, normal RV size and systolic function. No Doppler evidence for ASD. No tricuspid valve, trivial TR. 11/05: Airvo FiO2 50%. Still tachypneic. Labs reviewed 2. Unclear about sepsis: Patient has signs and symptoms of acute hypoxic respiratory failure with leukocytosis, elevated lactic acid. Patient has low BP SBP less than 90 mmHg. Patient empirically on IV antibiotic. Patient had 30 mill per KG IV fluid bolus. 11/05: Empirically on antibiotics. Does not seem to have sepsis 3. Hypertension ? Holding home lisinopril?hydrochlorothiazide. 4. Hyperlipidemia ? Continue home fenofibrate. 5. Hypothyroidism ? Continue home Synthroid. DVT prophylaxis: Lovenox CODE STATUS: DNR CCA, okay to intubate Charges/Coding Visit Charges Inpatient E&M: 79749 [facility] Hosp L3
[2024-11-05] MEDS: Ipratropium/Albuterol Sulfate 3 ML AMPUL.NEB INHALATION ×3 (07:46→19:14)
[2024-11-05 08:09] LABS: Absolute Lymphocyte Count 0.18 X10^3/uL (0.83-4.51); Absolute Neutrophil Count 11.8 X10^3/uL (2.0-7.7); Basophil# 0.01 X10^3/uL; Basophil% 0.1 % (0-1); Hematocrit 29.5 % (37-47); Lymphocyte # 0.18 X10^3/ul (0.83-4.51); Lymphocyte % 1.4 % (19-41); Mean Corp Hgb Conc 30.5 g/dL (32-36); Mean Corpuscular Hgb 30.5 pg (27.0-32.0); Monocyte# 0.41 X10^3/uL; Monocyte% 3.3 % (0-10); NRBC Flagged by Analyzer 0 % (0-5); Neutrophil # 11.82 X10^3/uL (2.7-7.7); Neutrophil % 94.6 % (47-70); POSITIVE DIFFERENTIAL YES; Platelet Count 251 K/mm3 (150-450); RBC Distribution Width CV 14.5 % (11.6-14.6); RBC Distribution Width SD 52.9 fl (35.1-43.9); Red Blood Count 2.95 M/mm3 (4.2-5.4); White Blood Count 12.5 K/mm3 (4.4-11.0)
[2024-11-05] MEDS: Enoxaparin 40 MG/0.4 ML Syringe SC (08:16)
[2024-11-05] MEDS: 0.9% Saline Lock 10 ML Syringe IV ×3 (08:16→14:17)
[2024-11-05] MEDS: Fenofibrate 145 MG Tablet PO (08:16)
[2024-11-05] MEDS: Acetaminophen 325 MG Tablet 650 MG PO (08:16)
[2024-11-05 08:37] LABS: Anion Gap 4 (5-15); BUN 32 mg/dL (7-18); BUN/Creat Ratio 56.5 RATIO (10-20); Calcium,Total 7.8 mg/dL (8.5-10.1); Chloride 114 mmol/L (98-107); Creatinine, Serum 0.57 mg/dL (0.55-1.02); EST Glomerular Filtration Rate 112 mL/min (>60); Est Glom Filt Rate - Afr Amer 135 mL/min (>60); Estimated Creatinine Clearance 48.67 ml/min; Glucose 124 mg/dL (74-106); Potassium 4.1 mmol/L (3.5-5.1); Sodium Level 144 mmol/L (136-145)
[2024-11-05] MEDS: Ceftriaxone 2 GM in 0.9% Normal Saline (50mL MB+) 50 ML IV (09:27)
[2024-11-05] MEDS: Azithromycin 500 MG in 0.9% Normal Saline (250mL Bag) 250 ML 255 MG IV (10:16)
--- NOTE | 2024-11-05 19:19 | CPS ---
Thir HEALTHCARE BUSINESS ANALYST changed H2O bag on AIRVO
[2024-11-06] VITALS (32 sets, daily range): BP systolic 88–126; BP diastolic 58–83; PULSE 55–93; RESP 18–42; TEMP 36.3–36.5; O2SAT 84–100; BMI 20.4
[2024-11-06] MEDS: 0.9% Saline Lock 10 ML Syringe IV ×2 (03:45→13:32)
[2024-11-06] MEDS: Acetaminophen 325 MG Tablet 650 MG PO (03:45)
[2024-11-06 04:02] LABS: Absolute Lymphocyte Count 0.19 X10^3/uL (0.83-4.51); Absolute Neutrophil Count 10.8 X10^3/uL (2.0-7.7); Basophil# 0.01 X10^3/uL; Basophil% 0.1 % (0-1); Hematocrit 33.6 % (37-47); Lymphocyte # 0.19 X10^3/ul (0.83-4.51); Lymphocyte % 1.7 % (19-41); Mean Corp Hgb Conc 29.8 g/dL (32-36); Mean Corpuscular Hgb 30.2 pg (27.0-32.0); Mean Corpuscular Volume 101.5 fL (81-99); Mean Platelet Vol. 10.7 fl (6.2-12.0); Monocyte# 0.42 X10^3/uL; Monocyte% 3.7 % (0-10); NRBC Flagged by Analyzer 0 % (0-5); Neutrophil # 10.79 X10^3/uL (2.7-7.7); POSITIVE DIFFERENTIAL YES; Platelet Count 264 K/mm3 (150-450); RBC Distribution Width CV 14.5 % (11.6-14.6); RBC Distribution Width SD 53.4 fl (35.1-43.9); Red Blood Count 3.31 M/mm3 (4.2-5.4); White Blood Count 11.5 K/mm3 (4.4-11.0)
[2024-11-06 04:15] LABS: Anion Gap 4 (5-15); BUN 34 mg/dL (7-18); BUN/Creat Ratio 66.1 RATIO (10-20); Calcium,Total 8.2 mg/dL (8.5-10.1); Chloride 115 mmol/L (98-107); Creatinine, Serum 0.51 mg/dL (0.55-1.02); EST Glomerular Filtration Rate 125 mL/min (>60); Est Glom Filt Rate - Afr Amer 151 mL/min (>60); Estimated Creatinine Clearance 48.67 ml/min; Glucose 124 mg/dL (74-106); Potassium 4.5 mmol/L (3.5-5.1); Sodium Level 145 mmol/L (136-145)
[2024-11-06] MEDS: Levothyroxine 25 MCG TABLET PO (05:27)
[2024-11-06] MEDS: Ipratropium/Albuterol Sulfate 3 ML AMPUL.NEB INHALATION ×4 (07:29→19:35)
[2024-11-06] MEDS: Ceftriaxone 2 GM in 0.9% Normal Saline (50mL MB+) 50 ML IV (08:18)
[2024-11-06] MEDS: Enoxaparin 40 MG/0.4 ML Syringe SC (08:21)
[2024-11-06] MEDS: Fenofibrate 145 MG Tablet PO (08:21)
[2024-11-06] MEDS: Azithromycin 500 MG in 0.9% Normal Saline (250mL Bag) 250 ML 255 MG IV (08:21)
--- NOTE | 2024-11-06 12:09 | PCM.PN.HOSP ---
Reason for Visit Reason for Visit: Diagnoses Sepsis, unspecified organism (11/03/24) Acidosis, unspecified (11/03/24) Pneumonia, unspecified organism (11/03/24) Interstitial pulmonary disease, unspecified (11/03/24) Acute respiratory failure with hypoxia (11/03/24) Objective Data Objective Data Vital Signs: Vital Signs Temp Pulse Resp BP Pulse Ox O2 Del Method O2 Flow Rate 97.4 F L 76 39 H 115/74 90 High Flow 8 11/06/24 08:00 11/06/24 11:05 11/06/24 11:00 11/06/24 11:00 11/06/24 11:00 11/06/24 11:00 11/06/24 11:00 FiO2 42 11/06/24 03:55 Oxygen Flow Rate (L/min) 8 Oxygen Delivery Method High Flow Weight: 108 lb 0.424 oz Body Mass Index (BMI) 20.4 Intake & Output: Intake and Output for Last 24 Hours 11/04/24 11/05/24 11/06/24 23:59 23:59 23:59 Intake Total 305 / 305 1465 / 1465 305 / 305 Output Total 120 / 121 Balance 185 / 184 1464 / 1464 305 / 305 Lab / Micro Data 11/06/24 03:50 11/06/24 03:50 Labs: Laboratory Results - last 24 hr 11/06/24 03:50: WBC 11.5 H, RBC 3.31 L, Hgb 10.0 L, Hct 33.6 L, MCV 101.5 H, MCH 30.2, MCHC 29.8 L, RDW Std Deviation 53.4 H, RDW Coeff of Ulysses 14.5, Plt Count 264, MPV 10.7, Immature Gran % (Auto) 0.500, Neut % (Auto) 94.0 H, Lymph % (Auto) 1.7 L, [place] % (Auto) 3.7, Eos % (Auto) 0.0, Baso % (Auto) 0.1, Absolute Neuts (auto) 10.8 H, Absolute Lymphs (auto) 0.19 L, Nucleated RBC % 0, Sodium 145, Potassium 4.5, Chloride 115 H, Carbon Dioxide 26.0, Anion Gap 4 L, BUN 34 H, Creatinine 0.51 L, Estim Creat Clear Calc 48.67, Est GFR (MDRD) Af Amer 151, Est GFR (MDRD) Non-Af 125, BUN/Creatinine Ratio 66.1 H, Glucose 124 H, Calcium 8.2 L Micro: Microbiology 11/04/24 08:04 Urine, Clean Catch Legionella Antigen - Final 11/04/24 08:04 Urine, Clean Catch Streptococcus pneumoniae Antigen (M - Final 11/03/24 15:45 Mucosa - Nasopharyngeal Respiratory Panel (PCR) - Final 11/03/24 11:33 Mucosa - Nose SARS-CoV-2, Influenza & RSV (PCR) - Final Physical Exam Narrative Seen and examined. Patient still short of breath. On high flow oxygen still tachypneic Denies any fever or chills. Has dry cough. Denies dizziness lightheadedness or symptoms of hypotension Physical exam General: Alert, Oriented x3, Cooperative HEENT: Atraumatic, PERRLA, EOMI, Normocephalic Oral: Oral mucosa dry no Gingival or Mucosal Lesions/ Ulcerations Neck: Supple, No JVD, Negative Carotid Bruits Chest wall/Lungs: Air entry severely diminished in bilateral lung bases. Bilateral diffuse inspiratory rales Cardiovascular: Sinus rhythm, Normal S1, Normal S2, systolic murmur Abdomen: Bowel Sounds Present, Soft, Non Tender, Non-Distended : No dysuria. No renal angle tenderness. No suprapubic tenderness. Extremities: No edema, Capillary Refill Less than 3 Seconds Skin: No rashes, No breakdown Musculoskeletal: No Tenderness to Palpation of Joints or Extremities Neurological: Cranial nerves II-XII grossly intact, DTR 2+/4. No acute focal neurological deficit. Psych/Mental Status: Flat Assessment & Plan Assessment/Plan (1) Acute hypoxemic respiratory failure: (2) Acidosis, lactic: (3) Right upper lobe pneumonia: (4) Interstitial lung disease: (5) Sepsis: PLAN: Plan Patient is a 69-year-old female who presented [facility] ED on 11/03/2024 with worsening shortness of breath and cough for past few days. Pulse ox was 70% tachypnea RR 30/min with mottled extremities noted and placed on nonrebreather by EMS. Initially patient on 2 L of oxygen at night and as needed. 1. Acute on chronic hypoxic respiratory failure secondary to community-acquired pneumonia in setting of interstitial fibrosis: ABG 7.38/39/208. Patient admitted in ICU. Car Head Liner Installer consulted and consult reviewed. Patient required high flow oxygen in ED, on Airvo here. CTA chest on admit showed no PE but did show interstitial fibrosis with findings of atypical infection and mild bilateral pleural effusions. COVID/flu/RSV and respiratory panel negative. Blood cultures pending. Empirically on IV ceftriaxone and azithromycin. Patient has interstitial fibrosis exacerbation with IV steroids and scheduled DuoNebs. Wean supplemental oxygen as able. 2D echo EF 65%, normal LV size, normal RV size and systolic function. No Doppler evidence for ASD. No tricuspid valve, trivial TR. 11/05: Airvo FiO2 50%. Still tachypneic. Labs reviewed 11/06: Patient feeling better. With regards to shortness of breath. On high flow oxygen. Still tachypneic 2. Unclear about sepsis: Patient has signs and symptoms of acute hypoxic respiratory failure with leukocytosis, elevated lactic acid. Patient has low BP SBP less than 90 mmHg. Patient empirically on IV antibiotic. Patient had 30 mill per KG IV fluid bolus. 11/05: Empirically on antibiotics. Does not seem to have sepsis 11/06: Sepsis ruled out. 3. Hypertension ? Holding home lisinopril?hydrochlorothiazide. 4. Hyperlipidemia ? Continue home fenofibrate. 5. Hypothyroidism ? Continue home Synthroid. DVT prophylaxis: Lovenox CODE STATUS: DNR CCA, okay to intubate Charges/Coding Visit Charges Inpatient E&M: 54670 Subs Hosp L2
--- NOTE | 2024-11-06 13:48 | PN.CC_ITS ---
Objective Data Objective Data Vital Signs: Vital Signs Last response 3 Temperature 36.4 C L 11/06/24 12:00 Temperature Source Oral 11/06/24 12:00 Pulse Rate 78 11/06/24 13:00 Pulse Strength Normal (2+) 11/06/24 08:42 Respiratory Rate 30 H 11/06/24 13:00 Respiratory Effort Normal, Non-Labored 11/06/24 12:00 Respiratory Depth Normal 11/06/24 12:00 Respiratory Pattern Normal 11/06/24 12:00 Blood Pressure 98/60 11/06/24 13:00 Blood Pressure Mean 72 11/06/24 13:00 Blood Pressure Source Monitor 11/06/24 13:00 Blood Pressure Position Semi-Fowlers 11/06/24 13:00 Blood Pressure Location Left Arm 11/06/24 13:00 Pulse Ox 96 11/06/24 13:18 Oxygen Delivery Method Nasal Cannula 11/06/24 13:18 Oxygen Flow Rate (L/min) 6 11/06/24 13:18 Fraction of Inspired Oxygen (FIO2) 42 11/06/24 03:55 I&O: I&O Last 24 Hours 3 11/05/24 11/06/24 11/06/24 23:59 11:59 23:59 Intake Total 1160 / 1465 305 / 305 Balance 1160 / 1464 305 / 305 I&O: Total Stay 3 11/03/24 11:03 thru 11/06/24 11:14 Intake Total 4380 Output Total 121 Balance 4259 Current Meds Ordered / Administered: Current meds ordered / Administered 3 Generic Name Dose Route Start Last Admin Trade Name Juan Diegoq PRN Reason Stop Dose Admin Acetaminophen 650 mg 11/03/24 14:53 11/06/24 03:45 Acetaminophen 325 Mg Tablet PO 650 mg Q6H PRN PRN Administration Pain 1-10 Or Fever>100.7 Albuterol/Ipratropium 3 ml 11/03/24 14:53 11/06/24 12:40 Ipratropium/Albuterol Sulfate 3 Ml Ampul.Neb INHALATION 3 ml Q6HWA.RT EDMUND Administration Enoxaparin Sodium 40 mg 11/04/24 10:00 11/06/24 08:21 Enoxaparin 40 Mg/0.4 Ml Syringe SC 40 mg DAILY EDMUND Administration Fenofibrate 145 mg 11/04/24 08:00 11/06/24 08:21 Fenofibrate 145 Mg Tablet PO 145 mg DAILYCM EDMUND Administration Azithromycin 500 mg/ Sodium 255 mls @ 255 mls/hr 11/04/24 10:00 11/06/24 10:02 Chloride IV Infused Q24 EDMUND Infusion Ceftriaxone Sodium 2 gm/ 50 mls @ 100 mls/hr 11/04/24 10:00 11/06/24 08:52 Sodium Chloride IV Infused Q24 EDMUND Infusion Levothyroxine Sodium 25 mcg 11/04/24 06:00 11/06/24 05:27 Levothyroxine 25 Mcg Tablet PO 25 mcg DAILY@0600 EDMUND Administration Melatonin 3 mg 11/03/24 14:53 Melatonin 3 Mg Tablet PO QHS PRN PRN INSOMNIA Methylprednisolone 40 mg 11/03/24 22:00 11/06/24 13:32 Methylprednisolone 40 Mg/Ml Vial IV 40 mg Q8 EDMUND Administration Ondansetron HCl 4 mg 11/03/24 14:53 Ondansetron 4 Mg/2 Ml Vial IV Q8H PRN PRN NAUSEA/VOMITING Sodium Chloride 10 - 40 ml 11/03/24 16:12 11/06/24 13:32 0.9% Saline Lock 10 Ml Syringe IV 10 ml UD PRN Administration SALINE FLUSH Lab / Micro Data 11/06/24 03:50 11/06/24 03:50 Labs: Laboratory Results - last 24 hr 11/06/24 03:50: WBC 11.5 H, RBC 3.31 L, Hgb 10.0 L, Hct 33.6 L, MCV 101.5 H, MCH 30.2, MCHC 29.8 L, RDW Std Deviation 53.4 H, RDW Coeff of Ulysses 14.5, Plt Count 264, MPV 10.7, Immature Gran % (Auto) 0.500, Neut % (Auto) 94.0 H, Lymph % (Auto) 1.7 L, [place] % (Auto) 3.7, Eos % (Auto) 0.0, Baso % (Auto) 0.1, Absolute Neuts (auto) 10.8 H, Absolute Lymphs (auto) 0.19 L, Nucleated RBC % 0, Sodium 145, Potassium 4.5, Chloride 115 H, Carbon Dioxide 26.0, Anion Gap 4 L, BUN 34 H , Creatinine 0.51 L, Estim Creat Clear Calc 48.67, Est GFR (MDRD) Af Amer 151, Est GFR (MDRD) Non-Af 125, BUN/Creatinine Ratio 66.1 H, Glucose 124 H, Calcium 8.2 L Assessment and Plan . Assessment and plan: HPI Patient seen and examined Chart and data reviewed Currently breathing 4 LPM O2 comfortably Microbiology all (-) Imaging reviewed EXAM GEN NAD VS as above HEENT O2 N/C NECK supple COR RRR CHEST crackles ABD soft EXT minimal edema SKIN w/d CURLY NF ASSESSMENT 1. Dyspnea / hypoxemia 2. Chronic ILD w/ presumed flare 3. Immunosuppressed TREATMENT PLAN -supplemental O2 as needed -continue IV steroids -VTE ppx Critical Care Time: 50 min The entirety of this encounter was done via Telemedicine
--- NOTE | 2024-11-06 19:20 | CPS ---
Increased Liter flow to 8.
[2024-11-07] VITALS (32 sets, daily range): BP systolic 93–140; BP diastolic 52–97; PULSE 61–94; RESP 14–45; TEMP 36.3–36.6; O2SAT 90–100; BMI 20.8
[2024-11-07] MEDS: Levothyroxine 25 MCG TABLET PO (05:11)
[2024-11-07] MEDS: Ipratropium/Albuterol Sulfate 3 ML AMPUL.NEB INHALATION ×3 (07:33→19:13)
[2024-11-07] MEDS: Fenofibrate 145 MG Tablet PO (08:23)
[2024-11-07] MEDS: Enoxaparin 40 MG/0.4 ML Syringe SC (08:23)
[2024-11-07] MEDS: Ceftriaxone 2 GM in 0.9% Normal Saline (50mL MB+) 50 ML IV (08:23)
[2024-11-07] MEDS: Azithromycin 500 MG in 0.9% Normal Saline (250mL Bag) 250 ML 255 MG IV (08:24)
--- NOTE | 2024-11-07 11:51 | PCM.PN.HOSP ---
Reason for Visit Reason for Visit: Diagnoses Sepsis, unspecified organism (11/03/24) Acidosis, unspecified (11/03/24) Pneumonia, unspecified organism (11/03/24) Interstitial pulmonary disease, unspecified (11/03/24) Acute respiratory failure with hypoxia (11/03/24) Objective Data Objective Data Vital Signs: Vital Signs Temp Pulse Resp BP Pulse Ox O2 Del Method O2 Flow Rate 97.5 F L 78 38 H 106/78 94 High Flow 8 11/07/24 04:00 11/07/24 11:00 11/07/24 11:00 11/07/24 11:00 11/07/24 11:00 11/07/24 11:00 11/07/24 11:00 FiO2 40 11/07/24 08:00 Oxygen Flow Rate (L/min) 8 Oxygen Delivery Method High Flow Weight: 110 lb 7.225 oz Body Mass Index (BMI) 20.8 Intake & Output: Intake and Output for Last 24 Hours 11/05/24 11/06/24 11/07/24 23:59 23:59 23:59 Intake Total 1465 / 1465 305 / 305 305 / 305 Output Total Balance 1464 / 1464 305 / 305 305 / 305 Lab / Micro Data 11/06/24 03:50 11/06/24 03:50 Micro: Microbiology 11/04/24 08:04 Urine, Clean Catch Legionella Antigen - Final 11/04/24 08:04 Urine, Clean Catch Streptococcus pneumoniae Antigen (M - Final 11/03/24 15:45 Mucosa - Nasopharyngeal Respiratory Panel (PCR) - Final 11/03/24 11:33 Mucosa - Nose SARS-CoV-2, Influenza & RSV (PCR) - Final Physical Exam Narrative Seen and examined. On Airvo and high flow oxygen. No acute change overnight. Denies any fever or chills. Has dry cough. Denies dizziness lightheadedness or symptoms of hypotension Physical exam General: Alert, Oriented x3, Cooperative HEENT: Atraumatic, PERRLA, EOMI, Normocephalic Oral: Oral mucosa dry no Gingival or Mucosal Lesions/ Ulcerations Neck: Supple, No JVD, Negative Carotid Bruits Chest wall/Lungs: Air entry severely diminished in bilateral lung bases. Bilateral diffuse inspiratory rales slightly better Cardiovascular: Sinus rhythm, Normal S1, Normal S2, systolic murmur Abdomen: Bowel Sounds Present, Soft, Non Tender, Non-Distended : No dysuria. No renal angle tenderness. No suprapubic tenderness. Extremities: No edema, Capillary Refill Less than 3 Seconds Skin: No rashes, No breakdown Musculoskeletal: No Tenderness to Palpation of Joints or Extremities Neurological: Cranial nerves II-XII grossly intact, DTR 2+/4. No acute focal neurological deficit. Psych/Mental Status: Flat Assessment & Plan Assessment/Plan (1) Acute hypoxemic respiratory failure: (2) Acidosis, lactic: (3) Right upper lobe pneumonia: (4) Interstitial lung disease: (5) Sepsis: PLAN: Plan Patient is a 69-year-old female who presented [facility] ED on 11/03/2024 with worsening shortness of breath and cough for past few days. Pulse ox was 70% tachypnea RR 30/min with mottled extremities noted and placed on nonrebreather by EMS. Initially patient on 2 L of oxygen at night and as needed. 1. Acute on chronic hypoxic respiratory failure secondary to community-acquired pneumonia in setting of interstitial fibrosis: ABG 7.38/39/208. Patient admitted in ICU. Childcare Center Administrator consulted and consult reviewed. Patient required high flow oxygen in ED, on Airvo here. CTA chest on admit showed no PE but did show interstitial fibrosis with findings of atypical infection and mild bilateral pleural effusions. COVID/flu/RSV and respiratory panel negative. Blood cultures pending. Empirically on IV ceftriaxone and azithromycin. Patient has interstitial fibrosis exacerbation with IV steroids and scheduled DuoNebs. Wean supplemental oxygen as able. 2D echo EF 65%, normal LV size, normal RV size and systolic function. No Doppler evidence for ASD. No tricuspid valve, trivial TR. 11/05: Airvo FiO2 50%. Still tachypneic. Labs reviewed 11/06: Patient feeling better. With regards to shortness of breath. On high flow oxygen. Still tachypneic 11/07: Patient on high flow oxygen at 8 L. Continue empiric antibiotic for 5 days. 2. Unclear about sepsis: Patient has signs and symptoms of acute hypoxic respiratory failure with leukocytosis, elevated lactic acid. Patient has low BP SBP less than 90 mmHg. Patient empirically on IV antibiotic. Patient had 30 mill per KG IV fluid bolus. 11/05: Empirically on antibiotics. Does not seem to have sepsis 2/1: Sepsis ruled out. 3. Hypertension ? Holding home lisinopril?hydrochlorothiazide. 4. Hyperlipidemia ? Continue home fenofibrate. 5. Hypothyroidism ? Continue home Synthroid. DVT prophylaxis: Lovenox CODE STATUS: DNR CCA, okay to intubate Charges/Coding Visit Charges Inpatient E&M: 94666 Subs Hosp L3
[2024-11-07] MEDS: 0.9% Saline Lock 10 ML Syringe IV ×2 (15:00→21:03)
--- NOTE | 2024-11-07 18:26 | PN.CC_ITS ---
Objective Data Objective Data Vital Signs: Vital Signs Last response 3 Temperature 36.3 C L 11/07/24 16:00 Temperature Source Temporal 11/07/24 16:00 Pulse Rate 84 11/07/24 18:00 Pulse Strength Normal (2+) 11/06/24 08:42 Respiratory Rate 25 H 11/07/24 18:00 Respiratory Effort Normal, Non-Labored 11/07/24 16:00 Respiratory Depth Normal 11/07/24 16:00 Respiratory Pattern Tachypnea 11/07/24 16:00 Blood Pressure 115/73 11/07/24 18:00 Blood Pressure Mean 87 11/07/24 18:00 Blood Pressure Source Monitor 11/07/24 18:00 Blood Pressure Position Semi-Fowlers 11/07/24 18:00 Blood Pressure Location Left Arm 11/07/24 18:00 Pulse Ox 97 11/07/24 18:00 Oxygen Delivery Method High Flow 11/07/24 18:00 Oxygen Flow Rate (L/min) 8 11/07/24 18:00 Fraction of Inspired Oxygen (FIO2) 40 11/07/24 08:00 I&O: I&O Last 24 Hours 3 11/06/24 11/07/24 11/07/24 23:59 11:59 23:59 Intake Total 305 / 665 360 / 665 Balance 305 / 665 360 / 665 I&O: Total Stay 3 11/03/24 11:03 thru 11/07/24 17:12 Intake Total 5045 Output Total 121 Balance 4924 Current Meds Ordered / Administered: Current meds ordered / Administered 3 Generic Name Dose Route Start Last Admin Trade Name Juan Diegoq PRN Reason Stop Dose Admin Acetaminophen 650 mg 11/03/24 14:53 11/06/24 03:45 Acetaminophen 325 Mg Tablet PO 650 mg Q6H PRN PRN Administration Pain 1-10 Or Fever>100.7 Albuterol/Ipratropium 3 ml 11/03/24 14:53 11/07/24 13:39 Ipratropium/Albuterol Sulfate 3 Ml Ampul.Neb INHALATION 3 ml Q6HWA.RT EDMUND Administration Enoxaparin Sodium 40 mg 11/04/24 10:00 11/07/24 08:23 Enoxaparin 40 Mg/0.4 Ml Syringe SC 40 mg DAILY EDMUND Administration Fenofibrate 145 mg 11/04/24 08:00 11/07/24 08:23 Fenofibrate 145 Mg Tablet PO 145 mg DAILYCM EDMUND Administration Azithromycin 500 mg/ Sodium 255 mls @ 255 mls/hr 11/04/24 10:00 11/07/24 10:01 Chloride IV Infused Q24 EDMUND Infusion Ceftriaxone Sodium 2 gm/ 50 mls @ 100 mls/hr 11/04/24 10:00 11/07/24 09:13 Sodium Chloride IV Infused Q24 EDMUND Infusion Levothyroxine Sodium 25 mcg 11/04/24 06:00 11/07/24 05:11 Levothyroxine 25 Mcg Tablet PO 25 mcg DAILY@0600 EDMUND Administration Melatonin 3 mg 11/03/24 14:53 Melatonin 3 Mg Tablet PO QHS PRN PRN INSOMNIA Methylprednisolone 40 mg 11/03/24 22:00 11/07/24 15:00 Methylprednisolone 40 Mg/Ml Vial IV 40 mg Q8 EDMUND Administration Ondansetron HCl 4 mg 11/03/24 14:53 Ondansetron 4 Mg/2 Ml Vial IV Q8H PRN PRN NAUSEA/VOMITING Sodium Chloride 10 - 40 ml 11/03/24 16:12 11/07/24 15:00 0.9% Saline Lock 10 Ml Syringe IV 10 ml UD PRN Administration SALINE FLUSH Lab / Micro Data 11/06/24 03:50 11/06/24 03:50 Assessment and Plan . Assessment and plan: HPI Patient seen and examined Chart and data reviewed Microbiology all (-) Imaging reviewed She is clinically stable - currently requiring 8 LPM O2 Comfortable at rest, but she has very little reserve EXAM GEN NAD VS as above HEENT O2 N/C NECK supple COR RRR CHEST crackles ABD soft EXT minimal edema SKIN w/d CURLY NF ASSESSMENT 1. Dyspnea / hypoxemia 2. Chronic ILD w/ presumed flare - at present, exact etiology unknown to us 3. Immunosuppressed - she reports chronic prednisone + Rituxan use TREATMENT PLAN -supplemental O2 as needed -continue IV steroids as is for now -VTE ppx The entirety of this encounter was done via Telemedicine
[2024-11-08] VITALS (17 sets, daily range): BP systolic 115–145; BP diastolic 67–94; PULSE 58–92; RESP 21–38; TEMP 36.1–36.9; O2SAT 90–100; BMI 21.2
[2024-11-08] MEDS: Acetaminophen 325 MG Tablet 650 MG PO (03:27)
[2024-11-08] MEDS: Levothyroxine 25 MCG TABLET PO (05:11)
[2024-11-08] MEDS: Ipratropium/Albuterol Sulfate 3 ML AMPUL.NEB INHALATION ×2 (06:54→13:33)
--- NOTE | 2024-11-08 07:37 | PCM.PN.INT ---
Assessment & Plan Assessment/Plan (1) Interstitial lung disease: (2) Acute hypoxemic respiratory failure: PLAN: Plan RECOMMENDATIONS: 1. Supplemental oxygen to maintain saturations at or above 90%. 2. Continue empiric antibiotics and corticosteroids. 3. Continue appropriate DVT prophylaxis. 4. Gentle diuresis as tolerated by hemodynamics and renal function. 5. Encourage incentive spirometer use and mobilize patient as tolerated. IMPRESSIONS: 1. Acute hypoxemic respiratory failure The patient has a self-reported history of interstitial lung disease of unclear etiology and is currently followed by [facility] pulmonary medicine. The patient reported that she has been receiving rituximab infusions for her interstitial lung disease. At this time, I would recommend that we obtain outside hospital medical records pertinent to her treatment for her ILD at [facility], by Dr. Aishwarya Flores. CTA chest ruled out pulmonary embolism but did reveal sequelae of interstitial lung disease. The patient will be maintained on empiric antibiotics for now. I have no way of knowing if her current clinical status is a consequence of interstitial lung disease progression without having her outside hospital medical records. Continue supplemental oxygen to maintain saturations at or above 90%. The patient will be maintained on scheduled IV steroids as ordered, along with empiric antimicrobials. Will attempt gentle diuresis as tolerated by hemodynamics and renal function. 2. History of hypertension/hyperlipidemia/hypothyroidism Complicates care, management, recovery and prognosis. Continue home medications as indicated. This note was generated with [employer] dictation software. It may contain incorrect words, spelling, and punctuation that were not noted in checking the note before signing. Subjective Subjective The patient was seen and examined at the bedside this morning. Events from the last 24 hours have been reviewed. The patient is currently afebrile, hemodynamically stable and maintaining appropriate oxygen saturations on 8 L/min via nasal cannula. The patient is currently documented to be overall net +5 L for the hospitalization. The patient continues to have an intermittent cough and exertional shortness of breath. Objective Data Objective Data The patient's most recent lab work, culture data and imaging studies have all been personally reviewed. Respiratory viral panel was negative. Strep and urine Legionella antigens were negative. Blood cultures have not demonstrated any growth to date. Vital Signs: Vital Signs Temp Pulse Resp BP Pulse Ox O2 Del Method O2 Flow Rate 97.9 F 85 32 H 131/76 H 90 High Flow 8 11/08/24 05:00 11/08/24 07:00 11/08/24 07:00 11/08/24 07:00 11/08/24 07:00 11/08/24 07:00 11/08/24 07:00 FiO2 40 11/07/24 08:00 Oxygen Flow Rate (L/min) 8 Oxygen Delivery Method High Flow Weight: 112 lb 3.445 oz Body Mass Index (BMI) 21.2 Intake & Output: Intake and Output for Last 24 Hours 11/06/24 11/07/24 11/08/24 23:59 23:59 23:59 Intake Total / 305 665 / 665 Balance 665 / 665 Lab / Micro Data Attestation: I reviewed the patient's lab results. 11/06/24 03:50 11/06/24 03:50 Labs: Laboratory Results - last 24 hr 11/03/24 11:10: WBC 22.2 H, RBC 4.25, Hgb 13.2, Hct 42.8, MCV 100.7 H, MCH 31.1, MCHC 30.8 L, RDW Std Deviation 55.3 H, RDW Coeff of Ulysses 15.1 H, Plt Count 356, MPV 11.2, Immature Gran % (Auto) 1.300 H, Neut % (Auto) 89.8 H, Lymph % (Auto) 2.2 L, Bucks % (Auto) 5.8, Eos % (Auto) 0.3, Baso % (Auto) 0.6, Absolute Neuts (auto) 19.9 H, Absolute Lymphs (auto) 0.49 L, Nucleated RBC % 0, Sodium 141, Potassium 3.7, Chloride 107, Carbon Dioxide 22.0, Anion Gap 12, BUN 33 H, Creatinine 1.02, Estim Creat Clear Calc 38.17, Est GFR (MDRD) Af Amer 69, Est GFR (MDRD) Non-Af 57 L, BUN/Creatinine Ratio 32.4 H, Glucose 97, Lactic Acid 5.5 H*, Calcium 9.3, Total Bilirubin 1.70 H, AST 71 H, ALT 38, Alkaline Phosphatase 51, B-Natriuretic Peptide 135.1 H, Total Protein 6.8, Albumin 3.6, Globulin 3.2, Albumin/Globulin Ratio 1.1, Procalcitonin 0.24 H 11/03/24 16:45: Lactic Acid 0.6 11/04/24 01:30: WBC 10.0, RBC 3.07 L, Hgb 9.5 L, Hct 30.2 L, MCV 98.4, MCH 30.9, MCHC 31.5 L, RDW Std Deviation 52.7 H, RDW Coeff of Ulysses 14.6, Plt Count 254, MPV 11.0, Sodium 142, Potassium 3.8, Chloride 113 H, Carbon Dioxide 24.0, Anion Gap 6, BUN 35 H, Creatinine 0.69, Estim Creat Clear Calc 48.67, Est GFR (MDRD) Af Amer 108, Est GFR (MDRD) Non-Af 89, BUN/Creatinine Ratio 50.9 H, Glucose 134 H, Calcium 7.6 L, Total Bilirubin 0.60, AST 31, ALT 24, Alkaline Phosphatase 40 L, Total Protein 5.4 L, Albumin 2.6 L, Globulin 2.8, Albumin/Globulin Ratio 0.9 Micro: Microbiology 11/04/24 08:04 Urine, Clean Catch Legionella Antigen - Final 11/04/24 08:04 Urine, Clean Catch Streptococcus pneumoniae Antigen (M - Final 11/03/24 15:45 Mucosa - Nasopharyngeal Respiratory Panel (PCR) - Final 11/03/24 11:33 Mucosa - Nose SARS-CoV-2, Influenza & RSV (PCR) - Final ABG Data ABG results: ABG 11/03/24 11:43 Specimen Type ART Sample Site R Radial pH 7.38 Bicarbonate Actual 23.3 Total CO2 25 Base Excess -2 O2 Saturation 100 H O2 % 15.0 ABG pCO2 39.1 ABG pO2 208 H Raphael Test Positive O2 Delivery Device NRB Vent Mode Not entered Radiography Diagnostic Testing: Radiology Impression Echocardiogram 11/04/24 08:59 Interpretation Summary The estimated ejection fraction is 65 %. No evidence for diastolic dysfunction. Ordering Physician: Bright Wallace Referring Physician: AURORA PARDO Performed By: Adelina Powell RCS Physical Exam Const alert and no apparent distress General Appearance: cooperative and frail HEENT normocephalic and head/scalp atraumatic Eyes PERRL, EOMs intact bilaterally and conjunctivae normal Neck supple General: trachea midline Chest inspection of chest normal Resp normal respiratory effort and no use of accessory muscles Auscultation: rales and diminished lung sounds Cardio regular rate, regular rhythm, S1 normal heart sound and S2 normal heart sound GI normal to inspection, nondistended, normoactive bowel sounds Extremity no clubbing, cyanosis or edema Skin no rashes or lesions noted Neuro CN's II-XII intact bilaterally, moves all extremities and no focal motor deficits Psych cooperative and affect normal Charges/Coding Visit Charges Inpatient E&M: 19156 Subs Hosp L2
--- NOTE | 2024-11-08 08:46 | PN.HOSP_ITS ---
Reason for Visit Reason for Visit: Diagnoses Sepsis, unspecified organism (11/03/24) Acidosis, unspecified (11/03/24) Pneumonia, unspecified organism (11/03/24) Interstitial pulmonary disease, unspecified (11/03/24) Acute respiratory failure with hypoxia (11/03/24) Objective Data Objective Data Vital Signs: Vital Signs Temp Pulse Resp BP Pulse Ox O2 Del Method O2 Flow Rate 97.9 F 85 32 H 131/76 H 90 High Flow 8 11/08/24 05:00 11/08/24 07:00 11/08/24 07:00 11/08/24 07:00 11/08/24 07:00 11/08/24 07:00 11/08/24 07:00 FiO2 40 11/07/24 08:00 Oxygen Flow Rate (L/min) 8 Oxygen Delivery Method High Flow Weight: 112 lb 3.445 oz Body Mass Index (BMI) 21.2 Intake & Output: Intake and Output for Last 24 Hours 11/06/24 11/07/24 11/08/24 23:59 23:59 23:59 Intake Total 305 / 305 665 / 665 Balance 305 / 305 665 / 665 Lab / Micro Data 11/06/24 03:50 11/06/24 03:50 Micro: Microbiology 11/04/24 08:04 Urine, Clean Catch Legionella Antigen - Final 11/04/24 08:04 Urine, Clean Catch Streptococcus pneumoniae Antigen (M - Final 11/03/24 15:45 Mucosa - Nasopharyngeal Respiratory Panel (PCR) - Final 11/03/24 11:33 Mucosa - Nose SARS-CoV-2, Influenza & RSV (PCR) - Final Physical Exam Narrative Seen and examined. On Airvo and high flow oxygen. No acute change overnight. Still on high oxygen requirement Denies any fever or chills. Has dry cough. Denies dizziness lightheadedness or symptoms of hypotension Physical exam General: Alert, Oriented x3, Cooperative HEENT: Atraumatic, PERRLA, EOMI, Normocephalic Oral: Oral mucosa dry no Gingival or Mucosal Lesions/ Ulcerations Neck: Supple, No JVD, Negative Carotid Bruits Chest wall/Lungs: Air entry severely diminished in bilateral lung bases. Bilateral diffuse inspiratory rales Cardiovascular: Sinus rhythm, Normal S1, Normal S2, systolic murmur Abdomen: Bowel Sounds Present, Soft, Non Tender, Non-Distended : No dysuria. No renal angle tenderness. No suprapubic tenderness. Extremities: No edema, Capillary Refill Less than 3 Seconds Skin: No rashes, No breakdown Musculoskeletal: No Tenderness to Palpation of Joints or Extremities Neurological: Cranial nerves II-XII grossly intact, DTR 2+/4. No acute focal neurological deficit. Psych/Mental Status: Flat Assessment & Plan Assessment/Plan (1) Acute hypoxemic respiratory failure: (2) Acidosis, lactic: (3) Right upper lobe pneumonia: (4) Interstitial lung disease: (5) Sepsis: PLAN: Plan Patient is a 69-year-old female who presented [facility] ED on 11/03/2024 with worsening shortness of breath and cough for past few days. Pulse ox was 70% tachypnea RR 30/min with mottled extremities noted and placed on nonrebreather by EMS. Initially patient on 2 L of oxygen at night and as needed. 1. Acute on chronic hypoxic respiratory failure secondary to community-acquired pneumonia in setting of interstitial fibrosis: ABG 7.38/39/208. Patient admitted in ICU. Ticket Agent consulted and consult reviewed. Patient required high flow oxygen in ED, on Airvo here. CTA chest on admit showed no PE but did show interstitial fibrosis with findings of atypical infection and mild bilateral pleural effusions. COVID/flu/RSV and respiratory panel negative. Blood cultures pending. Empirically on IV ceftriaxone and azithromycin. Patient has interstitial fibrosis exacerbation with IV steroids and scheduled DuoNebs. Wean supplemental oxygen as able. 2D echo EF 65%, normal LV size, normal RV size and systolic function. No Doppler evidence for ASD. No tricuspid valve, trivial TR. 11/05: Airvo FiO2 50%. Still tachypneic. Labs reviewed 11/06: Patient feeling better. With regards to shortness of breath. On high flow oxygen. Still tachypneic 11/07: Patient on high flow oxygen at 8 L. Continue empiric antibiotic for 5 days. 11/08: Patient lungs still sound crepitation and rhonchorous. On high flow oxygen. No significant policy change clerks supervisor the weekend 2. Unclear about sepsis: Patient has signs and symptoms of acute hypoxic respiratory failure with leukocytosis, elevated lactic acid. Patient has low BP SBP less than 90 mmHg. Patient empirically on IV antibiotic. Patient had 30 mill per KG IV fluid bolus. 11/05: Empirically on antibiotics. Does not seem to have sepsis 11/06: Sepsis ruled out. 3. Hypertension ? Holding home lisinopril?hydrochlorothiazide. 4. Hyperlipidemia ? Continue home fenofibrate. 5. Hypothyroidism ? Continue home Synthroid. DVT prophylaxis: Lovenox CODE STATUS: DNR CCA, okay to intubate Charges/Coding Visit Charges Inpatient E&M: 49723 Subs Hosp L3
[2024-11-08] MEDS: Fenofibrate 145 MG Tablet PO (09:47)
[2024-11-08] MEDS: Ceftriaxone 2 GM in 0.9% Normal Saline (50mL MB+) 50 ML IV (09:47)
[2024-11-08] MEDS: Enoxaparin 40 MG/0.4 ML Syringe SC (09:48)
[2024-11-08] MEDS: Azithromycin 500 MG in 0.9% Normal Saline (250mL Bag) 250 ML 255 MG IV (10:50)
[2024-11-08] MEDS: Furosemide 40 MG/4 ML Vial IV (12:06)
[2024-11-08] MEDS: 0.9% Saline Lock 10 ML Syringe IV (14:22)
[2024-11-09] VITALS (11 sets, daily range): BP systolic 88–130; BP diastolic 67–76; PULSE 69–94; RESP 20–26; TEMP 36.6–36.9; O2SAT 93–98
[2024-11-09] MEDS: Levothyroxine 25 MCG TABLET PO (05:06)
[2024-11-09] MEDS: Ipratropium/Albuterol Sulfate 3 ML AMPUL.NEB INHALATION ×3 (05:12→19:07)
--- NOTE | 2024-11-09 07:39 | PCM.PN.INT ---
Assessment & Plan Assessment/Plan (1) Interstitial lung disease: (2) Acute hypoxemic respiratory failure: PLAN: Plan RECOMMENDATIONS: 1. Supplemental oxygen to maintain saturations at or above 90%. 2. Continue empiric antibiotics and prednisone, as ordered. 3. Continue appropriate DVT prophylaxis. 4. Continue gentle diuresis as tolerated by hemodynamics and renal function. Obtain BMP tomorrow. 5. Encourage incentive spirometer use and mobilize patient as tolerated. 6. Will review [facility] pulmonary records. IMPRESSIONS: 1. Acute hypoxemic respiratory failure The patient has a self-reported history of interstitial lung disease of unclear etiology and is currently followed by [facility] pulmonary medicine. The patient reported that she has been receiving rituximab infusions for her interstitial lung disease. At this time, I would recommend that we obtain outside hospital medical records pertinent to her treatment for her ILD at [facility], by Dr. Aishwarya Flores. CTA chest ruled out pulmonary embolism but did reveal sequelae of interstitial lung disease. The patient will be maintained on empiric antibiotics for now. I have no way of knowing if her current clinical status is a consequence of interstitial lung disease progression without having her outside hospital medical records. Continue supplemental oxygen to maintain saturations at or above 90%. The patient will be maintained on steroids as ordered, along with empiric antimicrobials, which we will complete today. Continue attempts at gentle diuresis as tolerated by hemodynamics and renal function. 2. History of hypertension/hyperlipidemia/hypothyroidism Complicates care, management, recovery and prognosis. Continue home medications as indicated. This note was generated with [employer] dictation software. It may contain incorrect words, spelling, and punctuation that were not noted in checking the note before signing. Subjective Subjective The patient was seen and examined at the bedside this morning. Events from the last 24 hours have been reviewed. The patient is currently afebrile, hemodynamically stable and maintaining appropriate oxygen saturations on 8 L/min via nasal cannula. The patient is documented to be overall net +5.4 L for the hospitalization. The patient remains on scheduled bronchodilators and prednisone. I was notified by staff that we did finally receive the patient's pulmonary records from [facility], which I will review. Objective Data Objective Data The patient's most recent lab work, culture data and imaging studies have all been personally reviewed. Respiratory viral panel was negative. Strep and urine Legionella antigens were negative. Blood cultures have not demonstrated any growth to date. Vital Signs: Vital Signs Temp Pulse Resp BP Pulse Ox O2 Del Method O2 Flow Rate 98 F 69 24 H 111/67 93 High Flow 8 11/09/24 04:36 11/09/24 05:13 11/09/24 05:13 11/09/24 04:36 11/09/24 05:13 11/09/24 05:13 11/09/24 05:13 FiO2 40 11/07/24 08:00 Oxygen Flow Rate (L/min) 8 Oxygen Delivery Method High Flow Weight: 112 lb 3.445 oz Body Mass Index (BMI) 21.2 Intake & Output: Intake and Output for Last 24 Hours 11/07/24 11/08/24 11/09/24 23:59 23:59 23:59 Intake Total 665 / 665 605 / 855 500 / 500 Output Total 900 / 901 2 / Balance 665 / 665 -295 / -46 498 / 498 Lab / Micro Data Attestation: I reviewed the patient's lab results. 11/06/24 03:50 11/06/24 03:50 Labs: Laboratory Results - last 24 hr 11/03/24 11:10: WBC 22.2 H, RBC 4.25, Hgb 13.2, Hct 42.8, MCV 100.7 H, MCH 31.1, MCHC 30.8 L, RDW Std Deviation 55.3 H, RDW Coeff of Ulysses 15.1 H, Plt Count 356, MPV 11.2, Immature Gran % (Auto) 1.300 H, Neut % (Auto) 89.8 H, Lymph % (Auto) 2.2 L, Pershing % (Auto) 5.8, Eos % (Auto) 0.3, Baso % (Auto) 0.6, Absolute Neuts (auto) 19.9 H, Absolute Lymphs (auto) 0.49 L, Nucleated RBC % 0, Sodium 141, Potassium 3.7, Chloride 107, Carbon Dioxide 22.0, Anion Gap 12, BUN 33 H, Creatinine 1.02, Estim Creat Clear Calc 38.17, Est GFR (MDRD) Af Amer 69, Est GFR (MDRD) Non-Af 57 L, BUN/Creatinine Ratio 32.4 H, Glucose 97, Lactic Acid 5.5 H*, Calcium 9.3, Total Bilirubin 1.70 H, AST 71 H, ALT 38, Alkaline Phosphatase 51, B-Natriuretic Peptide 135.1 H, Total Protein 6.8, Albumin 3.6, Globulin 3.2, Albumin/Globulin Ratio 1.1, Procalcitonin 0.24 H 11/03/24 16:45: Lactic Acid 0.6 11/04/24 01:30: WBC 10.0, RBC 3.07 L, Hgb 9.5 L, Hct 30.2 L, MCV 98.4, MCH 30.9, MCHC 31.5 L, RDW Std Deviation 52.7 H, RDW Coeff of Ulysses 14.6, Plt Count 254, MPV 11.0, Sodium 142, Potassium 3.8, Chloride 113 H, Carbon Dioxide 24.0, Anion Gap 6, BUN 35 H, Creatinine 0.69, Estim Creat Clear Calc 48.67, Est GFR (MDRD) Af Amer 108, Est GFR (MDRD) Non-Af 89, BUN/Creatinine Ratio 50.9 H, Glucose 134 H, Calcium 7.6 L, Total Bilirubin 0.60, AST 31, ALT 24, Alkaline Phosphatase 40 L, Total Protein 5.4 L, Albumin 2.6 L, Globulin 2.8, Albumin/Globulin Ratio 0.9 Micro: Microbiology 11/03/24 13:10 Blood Culture (Wb) - Anticubital Left Blood Culture - Final No growth in 5 days. 11/03/24 13:10 Blood Culture (Wb) - Anticubital Right Blood Culture - Final No growth in 5 days. 11/04/24 08:04 Urine, Clean Catch Legionella Antigen - Final 11/04/24 08:04 Urine, Clean Catch Streptococcus pneumoniae Antigen (M - Final 11/03/24 15:45 Mucosa - Nasopharyngeal Respiratory Panel (PCR) - Final 11/03/24 11:33 Mucosa - Nose SARS-CoV-2, Influenza & RSV (PCR) - Final ABG Data ABG results: ABG 11/03/24 11:43 Specimen Type ART Sample Site R Radial pH 7.38 Bicarbonate Actual 23.3 Total CO2 25 Base Excess -2 O2 Saturation 100 H O2 % 15.0 ABG pCO2 39.1 ABG pO2 208 H Raphael Test Positive O2 Delivery Device NRB Vent Mode Not entered Radiography Diagnostic Testing: Radiology Impression Echocardiogram 11/04/24 08:59 Interpretation Summary The estimated ejection fraction is 65 %. No evidence for diastolic dysfunction. Ordering Physician: Bright Wallace Referring Physician: AURORA PARDO Performed By: Adelina Powell RCS Physical Exam Const alert and no apparent distress General Appearance: cooperative and frail HEENT normocephalic and head/scalp atraumatic Eyes PERRL, EOMs intact bilaterally and conjunctivae normal Neck supple General: trachea midline Chest inspection of chest normal Resp normal respiratory effort and no use of accessory muscles Auscultation: rales and diminished lung sounds Cardio regular rate, regular rhythm, S1 normal heart sound and S2 normal heart sound GI normal to inspection, nondistended, normoactive bowel sounds Extremity no clubbing, cyanosis or edema Skin no rashes or lesions noted Neuro CN's II-XII intact bilaterally, moves all extremities and no focal motor deficits Psych cooperative and affect normal Charges/Coding Visit Charges Inpatient E&M: 83259 Subs Hosp L2
--- NOTE | 2024-11-09 08:38 | PN.HOSP_ITS ---
Reason for Visit Reason for Visit: Diagnoses Sepsis, unspecified organism (11/03/24) Acidosis, unspecified (11/03/24) Pneumonia, unspecified organism (11/03/24) Interstitial pulmonary disease, unspecified (11/03/24) Acute respiratory failure with hypoxia (11/03/24) Objective Data Objective Data Vital Signs: Vital Signs Temp Pulse Resp BP Pulse Ox O2 Del Method O2 Flow Rate 98 F 69 24 H 111/67 95 High Flow 8 11/09/24 04:36 11/09/24 05:13 11/09/24 05:13 11/09/24 04:36 11/09/24 07:42 11/09/24 07:42 11/09/24 07:42 FiO2 40 11/07/24 08:00 Oxygen Flow Rate (L/min) 8 Oxygen Delivery Method High Flow Weight: 112 lb 3.445 oz Body Mass Index (BMI) 21.2 Intake & Output: Intake and Output for Last 24 Hours 11/07/24 11/08/24 11/09/24 23:59 23:59 23:59 Intake Total 665 / 665 605 / 855 500 / 500 Output Total 900 / 901 2 / 2 Balance 665 / 665 -295 / -46 498 / 498 Lab / Micro Data 11/06/24 03:50 11/06/24 03:50 Micro: Microbiology 11/03/24 13:10 Blood Culture (Wb) - Anticubital Left Blood Culture - Final No growth in 5 days. 11/03/24 13:10 Blood Culture (Wb) - Anticubital Right Blood Culture - Final No growth in 5 days. 11/04/24 08:04 Urine, Clean Catch Legionella Antigen - Final 11/04/24 08:04 Urine, Clean Catch Streptococcus pneumoniae Antigen (M - Final 11/03/24 15:45 Mucosa - Nasopharyngeal Respiratory Panel (PCR) - Final 11/03/24 11:33 Mucosa - Nose SARS-CoV-2, Influenza & RSV (PCR) - Final Physical Exam Narrative Seen and examined. No significant change. Patient asking for the discharge. On Airvo and high flow oxygen. Denies any fever or chills. Dry cough better denies dizziness lightheadedness or symptoms of hypotension Physical exam General: Alert, Oriented x3, Cooperative HEENT: Atraumatic, PERRLA, EOMI, Normocephalic Oral: Oral mucosa dry no Gingival or Mucosal Lesions/ Ulcerations Neck: Supple, No JVD, Negative Carotid Bruits Chest wall/Lungs: Air entry severely diminished in bilateral lung bases. Bilateral diffuse inspiratory rales Cardiovascular: Sinus rhythm, Normal S1, Normal S2, systolic murmur Abdomen: Bowel Sounds Present, Soft, Non Tender, Non-Distended : No dysuria. No renal angle tenderness. No suprapubic tenderness. Extremities: No edema, Capillary Refill Less than 3 Seconds Skin: No rashes, No breakdown Musculoskeletal: No Tenderness to Palpation of Joints or Extremities Neurological: Cranial nerves II-XII grossly intact, DTR 2+/4. No acute focal neurological deficit. Psych/Mental Status: Flat Assessment & Plan Assessment/Plan (1) Acute hypoxemic respiratory failure: (2) Acidosis, lactic: (3) Right upper lobe pneumonia: (4) Interstitial lung disease: (5) Sepsis: PLAN: Plan Patient is a 69-year-old female who presented [facility] ED on 11/03/2024 with worsening shortness of breath and cough for past few days. Pulse ox was 70% tachypnea RR 30/min with mottled extremities noted and placed on nonrebreather by EMS. Initially patient on 2 L of oxygen at night and as needed. 1. Acute on chronic hypoxic respiratory failure secondary to community-acquired pneumonia in setting of interstitial fibrosis: ABG 7.38/39/208. Patient admitted in ICU. Tongue Lining Stitcher consulted and consult reviewed. Patient required high flow oxygen in ED, on Airvo here. CTA chest on admit showed no PE but did show interstitial fibrosis with findings of atypical infection and mild bilateral pleural effusions. COVID/flu/RSV and respiratory panel negative. Blood cultures pending. Empirically on IV ceftriaxone and azithromycin. Patient has interstitial fibrosis exacerbation with IV steroids and scheduled DuoNebs. Wean supplemental oxygen as able. 2D echo EF 65%, normal LV size, normal RV size and systolic function. No Doppler evidence for ASD. No tricuspid valve, trivial TR. 11/05: Airvo FiO2 50%. Still tachypneic. Labs reviewed 11/06: Patient feeling better. With regards to shortness of breath. On high flow oxygen. Still tachypneic 11/07: Patient on high flow oxygen at 8 L. Continue empiric antibiotic for 5 days. 11/08: Patient lungs still sound crepitation and rhonchorous. On high flow oxygen. No significant liner roll changer the weekend 2: Patient is still on 8 L of high flow oxygen no significant change in past few days. Continue empiric antibiotic and corticosteroid. Gentle diuresis 2. Unclear about sepsis: Patient has signs and symptoms of acute hypoxic respiratory failure with leukocytosis, elevated lactic acid. Patient has low BP SBP less than 90 mmHg. Patient empirically on IV antibiotic. Patient had 30 mill per KG IV fluid bolus. 11/05: Empirically on antibiotics. Does not seem to have sepsis 11/06: Sepsis ruled out. 3. Hypertension ? Holding home lisinopril?hydrochlorothiazide. 4. Hyperlipidemia ? Continue home fenofibrate. 5. Hypothyroidism ? Continue home Synthroid. DVT prophylaxis: Lovenox CODE STATUS: DNR CCA, okay to intubate Charges/Coding Visit Charges Inpatient E&M: 82257 [facility] Hosp L3
[2024-11-09] MEDS: Fenofibrate 145 MG Tablet PO (08:50)
[2024-11-09] MEDS: Ceftriaxone 2 GM in 0.9% Normal Saline (50mL MB+) 50 ML IV (09:10)
[2024-11-09] MEDS: Enoxaparin 40 MG/0.4 ML Syringe SC (09:13)
[2024-11-09] MEDS: Azithromycin 500 MG in 0.9% Normal Saline (250mL Bag) 250 ML 255 MG IV (11:06)
[2024-11-09] MEDS: predniSONE 20 MG Tablet 40 MG PO (11:14)
[2024-11-10] VITALS (21 sets, daily range): BP systolic 107–157; BP diastolic 65–82; PULSE 69–107; RESP 20–32; TEMP 36.6–36.9; O2SAT 75–98; BMI 40.0
[2024-11-10] MEDS: Levothyroxine 25 MCG TABLET PO (05:52)
[2024-11-10 06:48] LABS: Anion Gap 4 (5-15); BUN 20 mg/dL (7-18); BUN/Creat Ratio 45.8 RATIO (10-20); Calcium,Total 7.9 mg/dL (8.5-10.1); Chloride 108 mmol/L (98-107); Creatinine, Serum 0.44 mg/dL (0.55-1.02); EST Glomerular Filtration Rate 151 mL/min (>60); Est Glom Filt Rate - Afr Amer 182 mL/min (>60); Estimated Creatinine Clearance 68.38 ml/min; Glucose 70 mg/dL (74-106); Potassium 4.2 mmol/L (3.5-5.1); Sodium Level 142 mmol/L (136-145)
[2024-11-10] MEDS: Ipratropium/Albuterol Sulfate 3 ML AMPUL.NEB INHALATION ×3 (06:53→19:12)
--- NOTE | 2024-11-10 07:53 | PCM.PN.HOSP ---
Reason for Visit Reason for Visit: Diagnoses Sepsis, unspecified organism (11/03/24) Acidosis, unspecified (11/03/24) Pneumonia, unspecified organism (11/03/24) Interstitial pulmonary disease, unspecified (11/03/24) Acute respiratory failure with hypoxia (11/03/24) Objective Data Objective Data Vital Signs: Vital Signs Temp Pulse Resp BP Pulse Ox O2 Del Method O2 Flow Rate 98.0 F 96 22 H 132/65 H 93 High Flow 12 11/10/24 05:00 11/10/24 05:00 11/10/24 05:00 11/10/24 05:00 11/10/24 07:49 11/10/24 07:49 11/10/24 07:49 FiO2 40 11/07/24 08:00 Oxygen Flow Rate (L/min) 12 Oxygen Delivery Method High Flow Weight: 212 lb 1.355 oz Body Mass Index (BMI) 40.0 Intake & Output: Intake and Output for Last 24 Hours 11/08/24 11/09/24 11/10/24 23:59 23:59 23:59 Intake Total 605 / 855 955 / 955 Output Total 900 / 901 302 / 302 Balance -295 / -46 653 / 653 Lab / Micro Data 11/06/24 03:50 11/10/24 04:47 Labs: Laboratory Results - last 24 hr 11/10/24 04:47: Sodium 142, Potassium 4.2, Chloride 108 H, Carbon Dioxide 30.0, Anion Gap 4 L, BUN 20 H, Creatinine 0.44 L, Estim Creat Clear Calc 68.38, Est GFR (MDRD) Af Amer 182, Est GFR (MDRD) Non-Af 151, BUN/Creatinine Ratio 45.8 H, Glucose 70 L, Calcium 7.9 L Micro: Microbiology 11/03/24 13:10 Blood Culture (Wb) - Anticubital Left Blood Culture - Final No growth in 5 days. 11/03/24 13:10 Blood Culture (Wb) - Anticubital Right Blood Culture - Final No growth in 5 days. 11/04/24 08:04 Urine, Clean Catch Legionella Antigen - Final 11/04/24 08:04 Urine, Clean Catch Streptococcus pneumoniae Antigen (M - Final 11/03/24 15:45 Mucosa - Nasopharyngeal Respiratory Panel (PCR) - Final 11/03/24 11:33 Mucosa - Nose SARS-CoV-2, Influenza & RSV (PCR) - Final Physical Exam Narrative Seen and examined. Patient oxygen requirement increased to 40 L. She has more severe cough. No fever Denies any fever or chills. Dry cough better denies dizziness lightheadedness or symptoms of hypotension Physical exam General: Alert, Oriented x3, Cooperative HEENT: Atraumatic, PERRLA, EOMI, Normocephalic Oral: Oral mucosa dry no Gingival or Mucosal Lesions/ Ulcerations Neck: Supple, No JVD, Negative Carotid Bruits Chest wall/Lungs: Air entry severely diminished in bilateral lung bases. Bilateral diffuse inspiratory rales Cardiovascular: Sinus rhythm, Normal S1, Normal S2, systolic murmur Abdomen: Bowel Sounds Present, Soft, Non Tender, Non-Distended : No dysuria. No renal angle tenderness. No suprapubic tenderness. Extremities: No edema, Capillary Refill Less than 3 Seconds Skin: No rashes, No breakdown Musculoskeletal: No Tenderness to Palpation of Joints or Extremities Neurological: Cranial nerves II-XII grossly intact, DTR 2+/4. No acute focal neurological deficit. Psych/Mental Status: Flat Assessment & Plan Assessment/Plan (1) Acute hypoxemic respiratory failure: (2) Acidosis, lactic: (3) Right upper lobe pneumonia: (4) Interstitial lung disease: (5) Sepsis: PLAN: Plan Patient is a 69-year-old female who presented [facility] ED on 11/03/2024 with worsening shortness of breath and cough for past few days. Pulse ox was 70% tachypnea RR 30/min with mottled extremities noted and placed on nonrebreather by EMS. Initially patient on 2 L of oxygen at night and as needed. 1. Acute on chronic hypoxic respiratory failure secondary to community-acquired pneumonia in setting of interstitial fibrosis: ABG 7.38/39/208. Patient admitted in ICU. Front Office Attendant consulted and consult reviewed. Patient required high flow oxygen in ED, on Airvo here. CTA chest on admit showed no PE but did show interstitial fibrosis with findings of atypical infection and mild bilateral pleural effusions. COVID/flu/RSV and respiratory panel negative. Blood cultures pending. Empirically on IV ceftriaxone and azithromycin. Patient has interstitial fibrosis exacerbation with IV steroids and scheduled DuoNebs. Wean supplemental oxygen as able. 2D echo EF 65%, normal LV size, normal RV size and systolic function. No Doppler evidence for ASD. No tricuspid valve, trivial TR. 11/05: Airvo FiO2 50%. Still tachypneic. Labs reviewed 11/06: Patient feeling better. With regards to shortness of breath. On high flow oxygen. Still tachypneic 11/07: Patient on high flow oxygen at 8 L. Continue empiric antibiotic for 5 days. 11/08: Patient lungs still sound crepitation and rhonchorous. On high flow oxygen. No significant bladder changer the weekend 11/09: Patient is still on 8 L of high flow oxygen no significant change in past few days. Continue empiric antibiotic and corticosteroid. Gentle diuresis 11/09: Patient oxygen requirement increased to 12 L. Probably she is more short of breath from cough. Robitussin AC started. will require 2. Unclear about sepsis: Patient has signs and symptoms of acute hypoxic respiratory failure with leukocytosis, elevated lactic acid. Patient has low BP SBP less than 90 mmHg. Patient empirically on IV antibiotic. Patient had 30 mill per KG IV fluid bolus. 11/05: Empirically on antibiotics. Does not seem to have sepsis 11/06: Sepsis ruled out. 3. Hypertension ? Holding home lisinopril?hydrochlorothiazide. 4. Hyperlipidemia ? Continue home fenofibrate. 5. Hypothyroidism ? Continue home Synthroid. DVT prophylaxis: Lovenox CODE STATUS: DNR CCA, okay to intubate Charges/Coding Visit Charges Inpatient E&M: 76907 [facility] L3
[2024-11-10] MEDS: predniSONE 20 MG Tablet 40 MG PO (09:16)
[2024-11-10] MEDS: Fenofibrate 145 MG Tablet PO (09:16)
[2024-11-10] MEDS: Enoxaparin 40 MG/0.4 ML Syringe SC (09:16)
[2024-11-10] MEDS: guaiFENesin/Codeine 5 ML UDC 10 ML PO ×3 (10:54→19:11)
--- NOTE | 2024-11-10 13:54 | PN.CC_ITS ---
Assessment & Plan Assessment/Plan (1) Interstitial lung disease: (2) Acute hypoxemic respiratory failure: PLAN: Plan RECOMMENDATIONS: 1. Supplemental oxygen to maintain saturations at or above 90%. 2. Antibiotic treatment course has completed. Continue prednisone as ordered. 3. Continue appropriate DVT prophylaxis. 4. Resume diuretics as tolerated by hemodynamics and renal function. 5. Encourage incentive spirometer use and mobilize patient as tolerated. IMPRESSIONS: 1. 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 She is currently followed by Dr. Aishwarya Flores at [facility] pulmonary medicine. According to documentation, the patient was previously being managed with azathioprine and more recently was changed to Rituxan due to the progressive nature of her interstitial lung disease. She was last seen by her prior pulmonary provider in August 2024. To date, the patient has completed an antibiotic treatment course and has received high-dose steroids, which have now been transitioned to prednisone. She has been intermittently receiving diuretics. Unfortunately, she remains on a high amount of supplemental oxygen. I strongly believe that this is the consequence of underlying progressive fibrotic lung disease. If she does not begin to make any meaningful improvement with aggressive diuresis, we will need to consider a goals of care discussion. In the interim, recommend starting continuous pulse oximetry monitoring and weaning supplemental oxygen to maintain saturations at or above 90%. 2. History of hypertension/hyperlipidemia/hypothyroidism Complicates care, management, recovery and prognosis. Continue home medications as indicated. This note was generated with [employer] dictation software. It may contain incorrect words, spelling, and punctuation that were not noted in checking the note before signing. Subjective Subjective The patient was seen and examined at the bedside this morning. Events from the last 24 hours have been reviewed. The patient is currently afebrile, hemodynamically stable and maintaining appropriate oxygen saturations on 14 L/min via nasal cannula. Chemistry profile this morning is unremarkable. The patient remains on scheduled bronchodilators and prednisone. According to documentation received from the patient's primary willow analyst, Dr. 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 She has been medically managed with azathioprine and Rituxan. The last office visit with her willow analyst appears to have occurred in August 2024, at which time, there is documentation that the patient has been experiencing progressive fibrotic lung disease. Objective Data Objective Data The patient's most recent lab work, culture data and imaging studies have all been personally reviewed. Respiratory viral panel was negative. Strep and urine Legionella antigens were negative. Blood cultures have not demonstrated any growth to date. Vital Signs: Vital Signs Temp Pulse Resp BP Pulse Ox O2 Del Method O2 Flow Rate 98.5 F 99 20 H 126/67 H 90 High Flow 14 11/10/24 09:00 11/10/24 09:00 11/10/24 09:00 11/10/24 09:00 11/10/24 12:53 11/10/24 12:53 11/10/24 12:53 FiO2 40 11/07/24 08:00 Oxygen Flow Rate (L/min) 14 Oxygen Delivery Method High Flow Weight: 212 lb 1.355 oz Body Mass Index (BMI) 40.0 Intake & Output: Intake and Output for Last 24 Hours 11/08/24 11/09/24 11/10/24 23:59 23:59 23:59 Intake Total 605 / 855 955 / 955 Output Total 900 / 901 302 / 302 Balance -295 / -46 653 / 653 Lab / Micro Data Attestation: I reviewed the patient's lab results. 11/06/24 03:50 11/10/24 04:47 Labs: Laboratory Results - last 24 hr 11/10/24 04:47: Sodium 142, Potassium 4.2, Chloride 108 H, Carbon Dioxide 30.0, Anion Gap 4 L, BUN 20 H, Creatinine 0.44 L, Estim Creat Clear Calc 68.38, Est GFR (MDRD) Af Amer 182, Est GFR (MDRD) Non-Af 151, BUN/Creatinine Ratio 45.8 H, Glucose 70 L, Calcium 7.9 L Micro: Microbiology 11/03/24 13:10 Blood Culture (Wb) - Anticubital Left Blood Culture - Final No growth in 5 days. 11/03/24 13:10 Blood Culture (Wb) - Anticubital Right Blood Culture - Final No growth in 5 days. 11/04/24 08:04 Urine, Clean Catch Legionella Antigen - Final 11/04/24 08:04 Urine, Clean Catch Streptococcus pneumoniae Antigen (M - Final 11/03/24 15:45 Mucosa - Nasopharyngeal Respiratory Panel (PCR) - Final 11/03/24 11:33 Mucosa - Nose SARS-CoV-2, Influenza & RSV (PCR) - Final ABG Data ABG results: ABG 11/03/24 11:43 Specimen Type ART Sample Site R Radial pH 7.38 Bicarbonate Actual 23.3 Total CO2 25 Base Excess -2 O2 Saturation 100 H O2 % 15.0 ABG pCO2 39.1 ABG pO2 208 H Raphael Test Positive O2 Delivery Device NRB Vent Mode Not entered Radiography Diagnostic Testing: Radiology Impression Echocardiogram 11/04/24 08:59 Interpretation Summary The estimated ejection fraction is 65 %. No evidence for diastolic dysfunction. Ordering Physician: Bright Wallace Referring Physician: AURORA PARDO Performed By: Adelina Powell RCS Physical Exam Const alert, oriented x3 and no apparent distress Constitutional Narrative: Sitting in bedside recliner. General Appearance: cooperative and frail HEENT normocephalic and head/scalp atraumatic Eyes PERRL, EOMs intact bilaterally and conjunctivae normal Neck supple General: trachea midline Chest inspection of chest normal Resp normal respiratory effort and no use of accessory muscles Auscultation: rales and diminished lung sounds Cardio regular rate, regular rhythm, S1 normal heart sound and S2 normal heart sound GI normal to inspection, nondistended, normoactive bowel sounds Extremity no clubbing, cyanosis or edema Skin no rashes or lesions noted Neuro CN's II-XII intact bilaterally, moves all extremities and no focal motor deficits Psych cooperative and affect normal Charges/Coding Visit Charges Inpatient E&M: 76496 Subs Hosp L3
[2024-11-10] MEDS: 0.9% Saline Lock 10 ML Syringe IV (16:27)
[2024-11-10] MEDS: Furosemide 40 MG/4 ML Vial IV ×2 (16:27→19:13)
[2024-11-10 23:01] LABS: Allen Test Positive; Base Excess 9 mmol/L (-2 to +2); Bicarbonate 34.2 mmol/L (22-26); Blood Gas Specimen Type ART; Mode Not entered; O2 Delivery Device CPAP; PO2 53 mmHG (75-100); SITE R Radial; SO2 84 % (95-99); Total Carbon Dioxide 36 mmol/L; pCO2 61.8 mmHg (35-45); pH 7.35 (7.35-7.45)
[2024-11-11] VITALS (25 sets, daily range): BP systolic 92–152; BP diastolic 51–81; PULSE 81–115; RESP 20–38; TEMP 36.5–37.3; O2SAT 82–97; BMI 20.2
[2024-11-11] MEDS: guaiFENesin/Codeine 5 ML UDC 10 ML PO ×5 (01:30→22:05)
[2024-11-11 05:07] LABS: Anion Gap 3 (5-15); BUN 18 mg/dL (7-18); Chloride 102 mmol/L (98-107); Creatinine, Serum 0.49 mg/dL (0.55-1.02); EST Glomerular Filtration Rate 133 mL/min (>60); Est Glom Filt Rate - Afr Amer 161 mL/min (>60); Estimated Creatinine Clearance 48.67 ml/min; Glucose 90 mg/dL (74-106); Potassium 3.7 mmol/L (3.5-5.1); Sodium Level 141 mmol/L (136-145)
[2024-11-11] MEDS: Levothyroxine 25 MCG TABLET PO (06:31)
[2024-11-11] MEDS: Ipratropium/Albuterol Sulfate 3 ML AMPUL.NEB INHALATION ×3 (07:12→20:30)
[2024-11-11] MEDS: Fenofibrate 145 MG Tablet PO (08:20)
[2024-11-11] MEDS: predniSONE 20 MG Tablet 40 MG PO (08:20)
[2024-11-11] MEDS: Enoxaparin 40 MG/0.4 ML Syringe SC (08:20)
--- NOTE | 2024-11-11 11:12 | RAD_ITS ---
EXAM: XR Chest, 1 View CLINICAL INDICATION: TECHNIQUE: Frontal view of the chest. COMPARISON: No relevant prior studies available. FINDINGS: LUNGS AND PLEURAL SPACES: Congestion and edema. No pneumothorax. HEART: Unremarkable. No cardiomegaly. MEDIASTINUM: Unremarkable. Normal mediastinal contour. BONES/JOINTS: Unremarkable. No acute fracture. RAD/Chest 1 View (Portable) IMPRESSION: Congestion and edema. Superimposed pneumonia can not be excluded. Reading Location: [facility]
--- NOTE | 2024-11-11 11:23 | PCM.PN.INT ---
Assessment & Plan Assessment/Plan (1) Interstitial lung disease: (2) Acute hypoxemic respiratory failure: PLAN: Plan RECOMMENDATIONS: 1. Supplemental oxygen to maintain saturations at or above 90%. 2. Antibiotic treatment course has completed. Continue prednisone as ordered. 3. Continue appropriate DVT prophylaxis. 4. Encourage incentive spirometer use and mobilize patient as tolerated. 5. Referral to hospice care services, per request. IMPRESSIONS: 1. 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 She is currently followed by Dr. Aishwarya Flores at [facility] pulmonary medicine. According to documentation, the patient was previously being managed with azathioprine and more recently was changed to Rituxan due to the progressive nature of her interstitial lung disease. She was last seen by her prior pulmonary provider in August 2024. To date, the patient has completed an antibiotic treatment course and has received high-dose steroids, which have now been transitioned to prednisone. She has been intermittently receiving diuretics. Unfortunately, she remains on a high amount of supplemental oxygen. I strongly believe that this is the consequence of underlying progressive fibrotic lung disease. Given her lack of clinical improvement, I did discuss the possibility of transfer to [facility] versus consideration for hospice care services. The patient is not interested in being transferred to [facility] for further intervention. Instead, she is interested in pursuing a referral to hospice care services. Hospitalist and case management was notified. 2. History of hypertension/hyperlipidemia/hypothyroidism Complicates care, management, recovery and prognosis. Continue home medications as indicated. This note was generated with [employer] dictation software. It may contain incorrect words, spelling, and punctuation that were not noted in checking the note before signing. Subjective Subjective The patient was seen and examined at the bedside this morning. Events from the last 24 hours have been reviewed. The patient is currently afebrile, hemodynamically stable and maintaining appropriate oxygen saturations on heated high flow oxygen. The patient was diuresed aggressively yesterday and has developed a contraction alkalosis this morning. I spoke to the patient this morning regarding her prognosis. I do feel that her current clinical state is likely the consequence of progressive pulmonary fibrosis. I explained to her that we could consider 1 of 2 options, either transfer to [facility] for further evaluation or consider hospice care services. The patient reported that she is not interested in pursuing any additional treatment through [facility] and would therefore like to consider hospice care services. Objective Data Objective Data The patient's most recent lab work, culture data and imaging studies have all been personally reviewed. Respiratory viral panel was negative. Strep and urine Legionella antigens were negative. Blood cultures have not demonstrated any growth to date. Vital Signs: Vital Signs Temp Pulse Resp BP Pulse Ox O2 Del Method O2 Flow Rate 98.2 F 87 26 H 152/77 H 94 Airvo 45 11/11/24 08:11/11/24 11:21 11/11/24 11:21 11/11/24 08:25 11/11/24 11:21 11/11/24 08:25 11/10/24 20:52 FiO2 70 11/11/24 11:21 Oxygen Flow Rate (L/min) 45 Oxygen Delivery Method Airvo Weight: 106 lb 14.787 oz Body Mass Index (BMI) 20.2 Intake & Output: Intake and Output for Last 24 Hours 11/09/24 11/10/24 11/11/24 23:59 23:59 23:59 Intake Total 955 / 955 500 / 500 Output Total 302 / 302 800 / 800 600 / 600 Balance 653 / 653 -300 / -300 -600 / -600 Lab / Micro Data Attestation: I reviewed the patient's lab results. 11/06/24 03:50 11/11/24 04:05 Labs: Laboratory Results - last 24 hr 11/11/24 04:05: Sodium 141, Potassium 3.7, Chloride 102, Carbon Dioxide 35.0 H, Anion Gap 3 L, BUN 18, Creatinine 0.49 L, Estim Creat Clear Calc 48.67, Est GFR (MDRD) Af Amer 161, Est GFR (MDRD) Non-Af 133, BUN/Creatinine Ratio 37.0 H, Glucose 90, Calcium 8.0 L Micro: Microbiology 11/03/24 13:10 Blood Culture (Wb) - Anticubital Left Blood Culture - Final No growth in 5 days. 11/03/24 13:10 Blood Culture (Wb) - Anticubital Right Blood Culture - Final No growth in 5 days. 11/04/24 08:04 Urine, Clean Catch Legionella Antigen - Final 11/04/24 08:04 Urine, Clean Catch Streptococcus pneumoniae Antigen (M - Final 11/03/24 15:45 Mucosa - Nasopharyngeal Respiratory Panel (PCR) - Final 11/03/24 11:33 Mucosa - Nose SARS-CoV-2, Influenza & RSV (PCR) - Final ABG Data ABG results: ABG 11/10/24 22:58 Specimen Type ART Sample Site R Radial pH 7.35 Bicarbonate Actual 34.2 H Total CO2 36 Base Excess 9 H O2 Saturation 84 L O2 % 65.0 ABG pCO2 61.8 H ABG pO2 53 L Raphael Test Positive O2 Delivery Device CPAP Vent Mode Not entered Clinical Comments Airvo 45L 65% Radiography Diagnostic Testing: Radiology Impression Echocardiogram 11/04/24 08:59 Interpretation Summary The estimated ejection fraction is 65 %. No evidence for diastolic dysfunction. Ordering Physician: Bright Wallace Referring Physician: AURORA PARDO Performed By: Adelina Powell RCS Physical Exam Const alert, oriented x3 and no apparent distress Constitutional Narrative: Sitting in bedside recliner. General Appearance: cooperative and frail HEENT normocephalic and head/scalp atraumatic Eyes PERRL, EOMs intact bilaterally and conjunctivae normal Neck supple General: trachea midline Chest inspection of chest normal Resp normal respiratory effort and no use of accessory muscles Auscultation: rales and diminished lung sounds Cardio regular rate, regular rhythm, S1 normal heart sound and S2 normal heart sound GI normal to inspection, nondistended, normoactive bowel sounds Extremity no clubbing, cyanosis or edema Skin no rashes or lesions noted Neuro CN's II-XII intact bilaterally, moves all extremities and no focal motor deficits Psych cooperative and affect normal Charges/Coding Visit Charges Inpatient E&M: 61105 Subs Hosp L2
--- NOTE | 2024-11-11 12:29 | CASEMGMT ---
Addendum entered by Melva Read 11/11/24 15:28: SW confirmed that hospice received referral. Hospice attempted to call son x2 with no response. SW called bedside nurse who reports that son has not been present during pt stay and encouraged that calling pt direct may be the best options. SW called hospice to provide pt contact information. SW remains available to follow. ARACELIS Rodriguez Original Note: Social Work- SW received notice that pt would like hospice referral for consult. SW completed hospice referral. Physician notified. RNCM notified. ARACELIS Rodriguez
[2024-11-11] MEDS: 0.9% Saline Lock 10 ML Syringe IV (15:04)
--- NOTE | 2024-11-11 16:12 | PCM.PN.HOSP ---
Reason for Visit Reason for Visit: Diagnoses Sepsis, unspecified organism (11/03/24) Acidosis, unspecified (11/03/24) Pneumonia, unspecified organism (11/03/24) Interstitial pulmonary disease, unspecified (11/03/24) Acute respiratory failure with hypoxia (11/03/24) Subjective Subjective Saw patient at bedside this morning. Patient was sitting up in bedside chair. She was anxious appearing but otherwise breathing comfortably on high flow nasal cannula. [place] similar to previous days, no new concerns today. Objective Data Objective Data Vital Signs: Vital Signs Temp Pulse Resp BP Pulse Ox O2 Del Method O2 Flow Rate 98.7 F 88 22 H 127/78 H 95 Airvo 45 11/11/24 14:45 11/11/24 15:57 11/11/24 15:57 11/11/24 14:45 11/11/24 15:57 11/11/24 14:45 11/10/24 20:52 FiO2 65 11/11/24 15:57 Oxygen Flow Rate (L/min) 45 Oxygen Delivery Method Airvo Weight: 48.5 kg Body Mass Index (BMI) 20.2 Intake & Output: Intake and Output for Last 24 Hours 11/09/24 11/10/24 11/11/24 23:59 23:59 23:59 Intake Total 955 / 955 500 / 500 240 / 240 Output Total 302 / 302 800 / 800 850 / 850 Balance 653 / 653 -300 / -300 -610 / -610 Lab / Micro Data 11/06/24 03:50 11/11/24 04:05 Labs: Laboratory Results - last 24 hr 11/11/24 04:05: Sodium 141, Potassium 3.7, Chloride 102, Carbon Dioxide 35.0 H, Anion Gap 3 L, BUN 18, Creatinine 0.49 L, Estim Creat Clear Calc 48.67, Est GFR (MDRD) Af Amer 161, Est GFR (MDRD) Non-Af 133, BUN/Creatinine Ratio 37.0 H, Glucose 90, Calcium 8.0 L Micro: Microbiology 11/03/24 13:10 Blood Culture (Wb) - Anticubital Left Blood Culture - Final No growth in 5 days. 11/03/24 13:10 Blood Culture (Wb) - Anticubital Right Blood Culture - Final No growth in 5 days. 11/04/24 08:04 Urine, Clean Catch Legionella Antigen - Final 11/04/24 08:04 Urine, Clean Catch Streptococcus pneumoniae Antigen (M - Final 11/03/24 15:45 Mucosa - Nasopharyngeal Respiratory Panel (PCR) - Final 11/03/24 11:33 Mucosa - Nose SARS-CoV-2, Influenza & RSV (PCR) - Final ABG Data ABG results: ABG 11/10/24 22:58 Specimen Type ART Sample Site R Radial pH 7.35 Bicarbonate Actual 34.2 H Total CO2 36 Base Excess 9 H O2 Saturation 84 L O2 % 65.0 ABG pCO2 61.8 H ABG pO2 53 L Raphael Test Positive O2 Delivery Device CPAP Vent Mode Not entered Clinical Comments Airvo 45L 65% Radiography Diagnostic Testing: Radiology Impression Chest X-Ray 11/11/24 11:12 IMPRESSION: Congestion and edema. Superimposed pneumonia can not be excluded. Reading Location: [facility] Physical Exam Const alert, oriented x3, no apparent distress and average body habitus Constitutional Narrative: Elderly female, mildly fatigued appearing, otherwise sitting up comfortably in bedside chair, breathing comfortably on high flow nasal cannula, conversing normally and in no acute distress. General Appearance: cooperative and comfortable HEENT normocephalic, head/scalp atraumatic, hearing grossly normal bilaterally, nasal mucous membranes and turbinates normal and moist oral mucous membranes Eyes PERRL, EOMs intact bilaterally and conjunctivae normal Neck full ROM Chest inspection of chest normal Resp normal respiratory effort and no use of accessory muscles Resp Narrative: Breathing comfortably on high flow nasal cannula at rest. Decreased breath sounds bilaterally in lung bases with crackles noted. No wheezing noted. Cardio regular rate, regular rhythm, no murmurs and peripheral pulses 2+ throughout GI normal to inspection, nondistended, normoactive bowel sounds, soft to palpation, non-tender and non-distended Back/Spine normal ROM Extremity normal to inspection, full ROM and no pedal edema Skin no rashes or lesions noted Neuro moves all extremities and no focal motor deficits Speech: speech normal Psych mental status grossly normal Assessment & Plan Assessment/Plan (1) Acute hypoxemic respiratory failure: (2) Interstitial lung disease: (3) Sepsis: PLAN: Plan Patient is a 69-year-old female who presented [facility] ED on 11/03/2024 with worsening shortness of breath and cough. 1. Acute on chronic hypoxic respiratory failure in setting of interstitial fibrosis ? Environmental Services Technician following. 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 Follows with [facility] pulmonary medicine. Was previously being managed with azathioprine but more recently was changed to Rituxan through the progressive nature of her ILD. Had concern for both community-acquired pneumonia and ILD exacerbation on admission. To date, has completed an antibiotic treatment course and has received high-dose steroids with transition to prednisone. Has also intermittently been receiving diuretics. Unfortunately, she remains on the high amount of supplemental oxygen. Per cutting table operator first, is suspected this is due to her underlying progressive fibrotic lung disease. Given her lack of improvement, cutting table operator first discussed possibility of transfer to [facility] versus consideration of hospice care. Patient elected for referral to hospice care and hospice was consulted on 11/11. Will continue inhalers and p.o. prednisone at this time. 2. Sepsis without shock, resolved ? Met sepsis criteria on admit with leukocytosis, severely elevated lactic acid, acute respiratory failure, elevated total bilirubin, SBP less than 90 and suspected respiratory source. Given 30 cc/kg of IV fluids on admit with good improvement in blood pressure and resolution of elevated lactate. Completed course of antibiotics as noted above. 3. Hyperlipidemia ? Continue home fenofibrate. 4. Hypothyroidism ? Continue home Synthroid. DVT prophylaxis: Lovenox CODE STATUS: DNR CCA, okay to intubate Expected disposition: TBD Total clinical time spent by myself addressing the patient's medical issues, reviewing all the data, and collaborating with patient's care team: 35 minutes. Charges/Coding Visit Charges Inpatient E&M: 30842 Subs Hosp L2
--- NOTE | 2024-11-11 17:14 | NURSING ---
Consult hanging out for Pallative Care, Hospice consult. This RN reached out to the answering service for Hospice/Pallative care and they said they were aware of the consult but they were waiting on the son to call back.
[2024-11-12] VITALS (13 sets, daily range): BP systolic 110–153; BP diastolic 66–91; PULSE 88–110; RESP 29–58; TEMP 36.6–37.2; O2SAT 82–96; BMI 20.2
[2024-11-12] MEDS: guaiFENesin/Codeine 5 ML UDC 10 ML PO ×4 (01:34→18:11)
--- NOTE | 2024-11-12 01:50 | PCM.HOSP.N ---
Hospitalist Note Patient on aervo, RT having notable difficulty getting any reading on any extremity. No overt respiratory distress but to be cautious will obtain ABG.
--- NOTE | 2024-11-12 02:24 | CPS ---
RN called RT due to pulse ox not picking up well and spo2 readings not being consistent. ABG was attempted X3, however RT unable to obtain sample. Pulse ox prope was changed to ear, spo2 picking up better with good waveform and spo2 in the 90's. Fio2 increased to 75% and 60L.
[2024-11-12 04:19] LABS: Allen Test Positive; Base Excess 10 mmol/L (-2 to +2); Bicarbonate 33.2 mmol/L (22-26); Blood Gas Specimen Type ART; Comment 60L; Mode Not entered; O2 Delivery Device HFNC; PO2 74 mmHG (75-100); SITE L Brach; SO2 96 % (95-99); Total Carbon Dioxide 35 mmol/L; pCO2 44.3 mmHg (35-45); pH 7.48 (7.35-7.45)
[2024-11-12] MEDS: Levothyroxine 25 MCG TABLET PO (05:39)
[2024-11-12] MEDS: Ipratropium/Albuterol Sulfate 3 ML AMPUL.NEB INHALATION ×3 (06:53→21:15)
[2024-11-12 07:03] LABS: Hematocrit 32.5 % (37-47); Hemoglobin 9.8 g/dL (12.0-15.0); Mean Corp Hgb Conc 30.2 g/dL (32-36); Mean Corpuscular Hgb 30.2 pg (27.0-32.0); Mean Platelet Vol. 11.2 fl (6.2-12.0); Platelet Count 333 K/mm3 (150-450); RBC Distribution Width CV 14.4 % (11.6-14.6); RBC Distribution Width SD 52.5 fl (35.1-43.9); Red Blood Count 3.25 M/mm3 (4.2-5.4); White Blood Count 15.4 K/mm3 (4.4-11.0)
[2024-11-12 07:26] LABS: Scan Indicated on CBC? Y/N NO
[2024-11-12 07:57] LABS: Anion Gap 4 (5-15); BUN 18 mg/dL (7-18); BUN/Creat Ratio 36.9 RATIO (10-20); Calcium,Total 8.7 mg/dL (8.5-10.1); Chloride 103 mmol/L (98-107); Creatinine, Serum 0.49 mg/dL (0.55-1.02); EST Glomerular Filtration Rate 133 mL/min (>60); Est Glom Filt Rate - Afr Amer 161 mL/min (>60); Estimated Creatinine Clearance 48.67 ml/min; Glucose 108 mg/dL (74-106); Potassium 4.2 mmol/L (3.5-5.1); Sodium Level 138 mmol/L (136-145)
[2024-11-12] MEDS: predniSONE 20 MG Tablet 40 MG PO (08:05)
[2024-11-12] MEDS: Fenofibrate 145 MG Tablet PO (08:05)
[2024-11-12] MEDS: Enoxaparin 40 MG/0.4 ML Syringe SC (08:06)
--- NOTE | 2024-11-12 08:41 | CASEMGMT ---
Social Work SW called [facility] to check on the referral. SW informed hospice called pt and left a message, no meeting has been scheduled. SW asked the to schedule meeting and can go ask pt if the time will work for her. They were able to schedule a meeting for this evening at 5:30pm. SW spoke w/pt, she is agreeable, also agreeable for SW to call son to see if he can come, but she is fine w/meeting w/hospice even if he is not present. SW let hospice know. SW called son Pancho, he states can be here at 5:30pm for the meeting. SW let pt know son will be here. SW remains available for any additional social service needs. MALGORZATA Hooker
--- NOTE | 2024-11-12 14:47 | PCM.PN.HOSP ---
Reason for Visit Reason for Visit: Diagnoses Sepsis, unspecified organism (11/03/24) Acidosis, unspecified (11/03/24) Pneumonia, unspecified organism (11/03/24) Interstitial pulmonary disease, unspecified (11/03/24) Acute respiratory failure with hypoxia (11/03/24) Subjective Subjective Saw patient at bedside this morning. Patient remained on Airvo with fairly oxygen requirements and was anxious appearing, similar to yesterday. She denies any new concerns today. Plan is for hospice meeting later this afternoon at 5:45pm. Objective Data Objective Data Vital Signs: Vital Signs Temp Pulse Resp BP Pulse Ox O2 Del Method O2 Flow Rate 98.9 F 107 H 58 H 135/84 H 86 Airvo 60 11/12/24 07:58 11/12/24 08:00 11/12/24 10:58 11/12/24 07:58 11/12/24 10:58 11/12/24 08:00 11/12/24 06:51 FiO2 87 11/12/24 11:00 Oxygen Flow Rate (L/min) 60 Oxygen Delivery Method Airvo Weight: 48.8 kg Body Mass Index (BMI) 20.2 Intake & Output: Intake and Output for Last 24 Hours 11/10/24 11/11/24 11/12/24 23:59 23:59 23:59 Intake Total 500 / 500 640 / 640 Output Total 800 / 800 850 / 850 Balance -300 / -300 -210 / -210 Lab / Micro Data 11/12/24 06:20 11/12/24 06:20 Labs: Laboratory Results - last 24 hr 11/12/24 06:20: WBC 15.4 H, RBC 3.25 L, Hgb 9.8 L, Hct 32.5 L, MCV 100.0 H, MCH 30.2, MCHC 30.2 L, RDW Std Deviation 52.5 H, RDW Coeff of Ulysses 14.4, Plt Count 333, MPV 11.2, Sodium 138, Potassium 4.2, Chloride 103, Carbon Dioxide 31.0, Anion Gap 4 L, BUN 18, Creatinine 0.49 L, Estim Creat Clear Calc 48.67, Est GFR (MDRD) Af Amer 161, Est GFR (MDRD) Non-Af 133, BUN/Creatinine Ratio 36.9 H, Glucose 108 H, Calcium 8.7 Micro: Microbiology 11/03/24 13:10 Blood Culture (Wb) - Anticubital Left Blood Culture - Final No growth in 5 days. 11/03/24 13:10 Blood Culture (Wb) - Anticubital Right Blood Culture - Final No growth in 5 days. 11/04/24 08:04 Urine, Clean Catch Legionella Antigen - Final 11/04/24 08:04 Urine, Clean Catch Streptococcus pneumoniae Antigen (M - Final 11/03/24 15:45 Mucosa - Nasopharyngeal Respiratory Panel (PCR) - Final 11/03/24 11:33 Mucosa - Nose SARS-CoV-2, Influenza & RSV (PCR) - Final ABG Data ABG results: ABG 11/12/24 04:14 Specimen Type ART Sample Site L Brach pH 7.48 H Bicarbonate Actual 33.2 H Total CO2 35 Base Excess 10 H O2 Saturation 96 O2 % 75.0 ABG pCO2 44.3 ABG pO2 74 L Raphael Test Positive O2 Delivery Device HFNC Vent Mode Not entered Clinical Comments 60L Physical Exam Const alert, oriented x3 and average body habitus Constitutional Narrative: Elderly female, mildly fatigued but anxious appearing, otherwise sitting up in bedside chair and breathing comfortably on Airvo and answer questions appropriately. General Appearance: cooperative and comfortable HEENT normocephalic, head/scalp atraumatic, hearing grossly normal bilaterally, nasal mucous membranes and turbinates normal and moist oral mucous membranes Eyes PERRL, EOMs intact bilaterally and conjunctivae normal Neck full ROM Chest inspection of chest normal Resp normal respiratory effort and no use of accessory muscles Resp Narrative: Breathing comfortably on Airvo at rest. Decreased breath sounds bilaterally in lung bases with crackles noted. No wheezing noted. Cardio no murmurs and peripheral pulses 2+ throughout Cardio Narrative: Tachycardic, regular rhythm. GI normal to inspection, nondistended, normoactive bowel sounds, soft to palpation, non-tender and non-distended Back/Spine normal ROM Extremity normal to inspection, full ROM and no pedal edema Skin no rashes or lesions noted Neuro moves all extremities and no focal motor deficits Speech: speech normal Psych mental status grossly normal Mood & Affect: anxious Assessment & Plan Assessment/Plan (1) Acute hypoxemic respiratory failure: (2) Interstitial lung disease: (3) Sepsis: PLAN: Plan Patient is a 69-year-old female who presented [facility] ED on 11/03/2024 with worsening shortness of breath and cough. 1. Acute on chronic hypoxic respiratory failure in setting of interstitial fibrosis ? Md Ophthalmologist following. 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 Follows with [facility] pulmonary medicine. Was previously being managed with azathioprine but more recently was changed to Rituxan through the progressive nature of her ILD. Had concern for both community-acquired pneumonia and ILD exacerbation on admission. To date, has completed an antibiotic treatment course and has received high-dose steroids with transition to prednisone. Has also intermittently been receiving diuretics. Unfortunately, she remains on the high amount of supplemental oxygen. Per printing film stripper, is suspected this is due to her underlying progressive fibrotic lung disease. Given her lack of improvement, printing film stripper discussed possibility of transfer to [facility] versus consideration of hospice care. Patient elected for referral to hospice care and hospice was consulted on 11/11; plan is for hospice meeting this evening at 5:45 PM and suspect patient will be an inpatient hospice candidate with ability to transfer there tonight. Will continue inhalers and p.o. prednisone at this time. 2. Sepsis without shock, resolved ? Met sepsis criteria on admit with leukocytosis, severely elevated lactic acid, acute respiratory failure, elevated total bilirubin, SBP less than 90 and suspected respiratory source. Given 30 cc/kg of IV fluids on admit with good improvement in blood pressure and resolution of elevated lactate. Completed course of antibiotics as noted above. 3. Hyperlipidemia ? Continue home fenofibrate. 4. Hypothyroidism ? Continue home Synthroid. DVT prophylaxis: Lovenox CODE STATUS: DNR CCA, okay to intubate Expected disposition: TBD Total clinical time spent by myself addressing the patient's medical issues, reviewing all the data, and collaborating with patient's care team: 35 minutes. Charges/Coding Visit Charges Inpatient E&M: 73848 Subs Hosp L2
[2024-11-12] MEDS: 0.9% Saline Lock 10 ML Syringe IV ×3 (18:02→23:57)
[2024-11-12] MEDS: LORazepam 2 MG/ML Syringe 0.5 MG IV ×2 (18:03→23:57)
[2024-11-12] MEDS: Morphine 2 MG/ML Syringe IV ×2 (18:03→21:26)
--- NOTE | 2024-11-12 18:08 | DS.PCM_ITS ---
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 EMERGENT Consult: No MD Notified: Yes Date Notified: 11/11/24 Time Notified: 17:00 Method of Notification: Answering Service 11/11/24 12:02 Consult: Hospice / Palliative Care Routine Consulting Provider: [facility] Reason for Consult: progressive decline in health EMERGENT Consult: No MD Notified: Yes Date Notified: 11/11/24 Time Notified: 12:05 Method of Notification: Text Reason For Visit: SEPSIS, PNEUMONIA, RESPIRATORY FAILURE Diagnosis Discharge Diagnosis (1) Acute hypoxemic respiratory failure: Status: Acute Code(s): J96.01 - Acute respiratory failure with hypoxia (2) Interstitial lung disease: Status: Acute Code(s): J84.9 - Interstitial pulmonary disease, unspecified (3) Sepsis: Status: Acute Code(s): A41.9 - Sepsis, unspecified organism Medications at Discharge Home Medications multivitamin 1 ea PO DAILY 04/13/17 fenofibrate nanocrystallized 145 mg tablet (Tricor) 145 mg PO DAILY 06/15/18 levothyroxine 25 mcg capsule 25 mcg PO DAILY 06/15/18 lisinopril 20 mg-hydrochlorothiazide 25 mg tablet 1 tab PO DAILY 05/07/22 dapsone 100 mg tablet 100 mg PO DAILY 11/03/24 Hospital Course Operations None Procedures EKG and - (chest x-ray x 2, CTA chest, ) Summary of Care Provided Minutes Spent on Discharge: 35 Hospital Course: Patient is a 69-year-old female who presented [facility] ED on 11/03/2024 with worsening shortness of breath and cough. Hospital course as noted below. Patient discharged to inpatient hospice on 11/12. 1. Acute on chronic hypoxic respiratory failure in setting of interstitial fibrosis ? Social Work Manager following. 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 Follows with [facility] pulmonary medicine. Was previously being managed with azathioprine but more recently was changed to Rituxan through the progressive nature of her ILD. Had concern for both community-acquired pneumonia and ILD exacerbation on admission. To date, has completed an antibiotic treatment course and has received high-dose steroids with transition to prednisone. Has also intermittently been receiving diuretics. Unfortunately, she remains on the high amount of supplemental oxygen. Per torch operator, is suspected this is due to her underlying progressive fibrotic lung disease. Given her lack of improvement, torch operator discussed possibility of transfer to [facility] versus consideration of hospice care. Patient elected for referral to hospice care. Patient ultimately was discharged to inpatient hospice on 11/12. 2. Sepsis without shock, resolved ? Met sepsis criteria on admit with leukocytosis, severely elevated lactic acid, acute respiratory failure, elevated total bilirubin, SBP less than 90 and suspected respiratory source. Given 30 cc/kg of IV fluids on admit with good improvement in blood pressure and resolution of elevated lactate. Completed course of antibiotics as noted above. 3. Hyperlipidemia ? Continue home fenofibrate. 4. Hypothyroidism ? Continue home Synthroid. Total clinical time spent by myself addressing the patient's medical issues, reviewing all the data, and collaborating with patient's care team: 35 minutes. Physical Exam Const alert, oriented x3 and average body habitus Constitutional Narrative: Elderly female, mildly fatigued but anxious appearing, otherwise sitting up in bedside chair and breathing comfortably on Airvo and answer questions appropriately. General Appearance: cooperative and comfortable HEENT normocephalic, head/scalp atraumatic, hearing grossly normal bilaterally, nasal mucous membranes and turbinates normal and moist oral mucous membranes Eyes PERRL, EOMs intact bilaterally and conjunctivae normal Neck full ROM Chest inspection of chest normal Resp normal respiratory effort and no use of accessory muscles Resp Narrative: Breathing comfortably on Airvo at rest. Decreased breath sounds bilaterally in lung bases with crackles noted. No wheezing noted. Cardio no murmurs and peripheral pulses 2+ throughout Cardio Narrative: Tachycardic, regular rhythm. GI normal to inspection, nondistended, normoactive bowel sounds, soft to palpation, non-tender and non-distended Back/Spine normal ROM Extremity normal to inspection, full ROM and no pedal edema Skin no rashes or lesions noted Neuro moves all extremities and no focal motor deficits Speech: speech normal Psych mental status grossly normal Mood & Affect: anxious Weight / BMI Weight Weight: 48.8 kg Body Mass Index (BMI) 20.2 ABG / Lab / Microbiology Data 11/12/24 06:20 11/12/24 06:20 Laboratory: Laboratory Results - last 24 hr 11/12/24 06:20: WBC 15.4 H, RBC 3.25 L, Hgb 9.8 L, Hct 32.5 L, MCV 100.0 H, MCH 30.2, MCHC 30.2 L, RDW Std Deviation 52.5 H, RDW Coeff of Ulysses 14.4, Plt Count 333, MPV 11.2, Sodium 138, Potassium 4.2, Chloride 103, Carbon Dioxide 31.0, A nion Gap 4 L, BUN 18, Creatinine 0.49 L, Estim Creat Clear Calc 48.67, Est GFR (MDRD) Af Amer 161, Est GFR (MDRD) Non-Af 133, BUN/Creatinine Ratio 36.9 H, G lucose 108 H, Calcium 8.7 Microbiology: Microbiology 11/03/24 13:10 Blood Culture (Wb) - Anticubital Left Blood Culture - Final No growth in 5 days. 11/03/24 13:10 Blood Culture (Wb) - Anticubital Right Blood Culture - Final No growth in 5 days. 11/04/24 08:04 Urine, Clean Catch Legionella Antigen - Final 11/04/24 08:04 Urine, Clean Catch Streptococcus pneumoniae Antigen (M - Final 11/03/24 15:45 Mucosa - Nasopharyngeal Respiratory Panel (PCR) - Final 11/03/24 11:33 Mucosa - Nose SARS-CoV-2, Influenza & RSV (PCR) - Final ABG: ABG 11/12/24 04:14 Specimen Type ART Sample Site L Brach pH 7.48 H Bicarbonate Actual 33.2 H Total CO2 35 Base Excess 10 H O2 Saturation 96 O2 % 75.0 ABG pCO2 44.3 ABG pO2 74 L Raphael Test Positive O2 Delivery Device HFNC Vent Mode Not entered Clinical Comments 60L D/C Instructions Discharge Diet: No restrictions DC O2, CPAP, BIPAP Needs PSN CPAP & BiPAP: BiPAP & CPAP Settings per PSN Mode AIRVO 11/12/24 13:39 Bipap Delivery Device Nasal Pillows 11/11/24 15:57 BiPAP Expiratory Pressure 40 11/03/24 13:57 Fraction of Inspired Oxygen ( 100 11/12/24 21:15 FIO2) Total Flow Rate 60 11/12/24 13:39 Home O2 Discharge instructions: No Meaningful Use Info Meaningful Use Meaningful Use Diagnoses (Choose all that apply): None applicable Ischemic Stroke Statin Dosing Therapy Reference: STATIN DOSE THERAPY REFERENCE: * Patients > 75 years receive moderate or high dose statin therapy. * Patients 75 years or YOUNGER should receive HIGH intensity statin dose unless contraindicated. You will be required to document reason for non-treatment if statin daily dose does not meet guidelines. HIGH DOSE STATIN THERAPY DAILY Atorvastatin > than or = to 40 mg Rosuvastatin > than or = to 20 mg Amlodipine + Atorvastatin > than or = to 2.5/40 mg Ezetimibe + Simvastatin 10/80 mg Simvastatin 80mg Discharge Plan Admission Admit Date/Time: 11/03/24 13:36 Primary Reason for Your Visit: shortness of breath Attending Provider: Tobi Reis Primary Care Provider: Marysol Olson NP Consulting Providers: Mario Gilliam; Tobi Reis; Bright Wallace; Cheikh Pagan; Avis Couch; Manisha Cyr; Mariam Washburn; Emani Lindsay NP; Gala De Discharge Orders/Prescriptions Prescriptions: Continued fenofibrate nanocrystallized [Tricor] 145 mg tablet 145 mg PO DAILY levothyroxine 25 mcg capsule 25 mcg PO DAILY multivitamin 1 EACH tablet 1 ea PO DAILY Patient Comments: vitamin lisinopril-hydrochlorothiazide 20-25 mg tablet 1 tab PO DAILY Patient Comments: TAKE 1 TABLET BY MOUTH ONCE DAILY dapsone 100 mg tablet 100 mg PO DAILY Referrals / Follow Up: Marysol Olson NP, PHARMACY INTAKE COORDINATOR-C [Primary Care Provider] - Disposition Disposition (needs filled in before D/C Order can be placed): Hospice in Medical Facility Charges/Coding Visit Charges Inpatient E&M: 61341 Disch Hosp >30min
--- NOTE | 2024-11-12 18:08 | PCM.DC ---
Discharge Instructions Diet Discharge Diet: No restrictions DC O2, CPAP, BIPAP needs Home O2 Discharge instructions: No Dressing / Incision Discharge Activity: No Restrictions Follow Up Care Test Results: Test results from this visit will be discussed in further detail at your follow-up appointment, if applicable. Discharge Plan Admission Admit Date/Time: 11/03/24 13:36 Primary Reason for Your Visit: shortness of breath Attending Provider: Tobi Reis Primary Care Provider: Marysol Olson NP Consulting Providers: Mario Gilliam; Tobi Reis; Bright Wallace; Cheikh Pagan; Avis Couch; Manisha Cyr; Mariam Washburn; Emani Lindsay [employer]; Gala De Discharge Orders/Prescriptions Prescriptions: Continued fenofibrate nanocrystallized [Tricor] 145 mg tablet 145 mg PO DAILY levothyroxine 25 mcg capsule 25 mcg PO DAILY multivitamin 1 EACH tablet 1 ea PO DAILY Patient Comments: vitamin lisinopril-hydrochlorothiazide 20-25 mg tablet 1 tab PO DAILY Patient Comments: TAKE 1 TABLET BY MOUTH ONCE DAILY dapsone 100 mg tablet 100 mg PO DAILY Referrals / Follow Up: Marysol Olson NP, [employer] [Primary Care Provider] - Disposition Disposition (needs filled in before D/C Order can be placed): Hospice in Medical Facility
--- NOTE | 2024-11-12 19:52 | NURSING ---
This RN gave report to Theresa KIM at [facility].
[2024-11-13] MEDS: Morphine 2 MG/ML Syringe IV (00:19)
[2024-11-13] MEDS: 0.9% Saline Lock 10 ML Syringe IV (00:22)
== END 2024-11-13 01:06 | disposition hospice, inpatient (51) | DRG 871 ==
LOC: ED 12:58 → ICU 13:44 → MS2 11-11 07:03 → ICU 11-11 07:10 → MS2 11-12 12:48 → MS3 11-12 19:09
PROVIDERS: Internal Medicine; Internal Medicine Critical Care Medicine; Admitting Provider Hospitalist; Emergency Provider Emergency Medicine; PCP Nurse Practitioner Family; Visit Provider Hospitalist
DX: A41.9 Sepsis, unspecified organism (principal); J96.21 Acute and chronic respiratory failure with hypoxia; J18.9 Pneumonia, unspecified organism; J84.114 Acute interstitial pneumonitis; M35.89 Other specified systemic involvement of connective tissue; E87.20 Acidosis, unspecified; J90 Pleural effusion, not elsewhere classified; D84.9 Immunodeficiency, unspecified; I10 Essential (primary) hypertension; E03.9 Hypothyroidism, unspecified; J84.170 Interstitial lung disease with progressive fibrotic phenotype in diseases classified elsewhere; E78.5 Hyperlipidemia, unspecified; Z51.5 Encounter for palliative care; Z66 Do not resuscitate; Z79.890 Hormone replacement therapy; Z11.52 Encounter for screening for COVID-19; Z98.890 Other specified postprocedural states; Z90.49 Acquired absence of other specified parts of digestive tract; Z20.828 Contact with and (suspected) exposure to other viral communicable diseases; Z88.1 Allergy status to other antibiotic agents
CPT/HCPCS: 36415; 36600; 71045; 71275; 80048; 80053; 82803; 83605; 83880; 84145; 85025; 85027; 87040; 87449; 87631; 87633; 93005; 93306; 94002; 94640; 94660; 94668; 94762; 97802; 97803; 99285; Q9967; A4216; J0696; J1940